=== PATIENT | female | born 1935 | race Caucasian/White ===

== ENCOUNTER 2017-07-30 13:35 | Outpatient (POV) | payer MEDICARE, MEDICAID, SELFPAY | END 2017-07-30 14:12 | disposition home or self-care (01) | PROVIDERS: Visit Provider Podiatrist | DX: L60.0 Ingrowing nail (principal); L60.1 Onycholysis; M25.572 Pain in left ankle and joints of left foot; M25.571 Pain in right ankle and joints of right foot | CPT/HCPCS: 99213; G0127 ==

== ENCOUNTER → 2018-07-12 13:32 | Outpatient (CLI) | payer MEDICARE, MEDICAID, SELFPAY ==
--- NOTE | 2018-07-12 13:36 | US_ITS ---
US Arterial Ankle Brachial Ind History: Claudication, leg pain ITS.REASON: skin changes ORDERING PHYSICIAN: Leonor Gandhi DPM PATIENT AGE: 82 years TECHNIQUE: Segmental pressures obtained of both right and left leg. These are compared to brachial blood pressure to yield index at each level sampled including summary JOSE. The data sheets from the procedure are available in PACS FINDINGS Rest study only performed today No prior studies available for comparison. Blood pressures reported are in millimeters mercury. RIGHT LEG JOSE = 1.0. RIGHT LEG TBI=.7 Brachial BP: 195 Thigh BP: 195 Calf BP: 194 Ankle PT: 202 Ankle DP : 169 Digit =133 LEFT LEG JOSE = 1.0 LEFT LEG TBI= .7 Brachial BPD: 188 Thigh BP: 190 Calf BP: 189 Ankle PT:203 Ankle DP: 206 Digit = 143 Pulses and waveforms: Normal IMPRESSION: The ABIs and TBI s as reported above are within normal limits. Waveforms and pulses are also unremarkable.
== END ==
PROVIDERS: PCP Internal Medicine Adolescent Medicine; Visit Provider Podiatrist
DX: R09.89 Other specified symptoms and signs involving the circulatory and respiratory systems (principal)
CPT/HCPCS: 93922

== ENCOUNTER 2019-05-28 12:52 | Inpatient (IN) ==
--- NOTE | 2019-05-28 13:08 | Emergency Department Note ---
ED Disposition Clinical Impression: Fall, Pubic ramus fracture, Left bundle branch block (LBBB) determined by electrocardiography, Elevated troponin Disposition: Admitted as Observation Condition on Discharge: Good Referrals: Meño Tian MD [Primary Care Provider] - Time of Disposition: :19 - Critical Care Critical Care Time: No Attestation: On , the high probability of a clinically significant, sudden or life threatening deterioration of the following system(s) required my full and direct attention, intervention and personal management. The time I documented below is in addition to time spent performing reported procedures but includes the following listed in this critical care notation. Medical Decision Making - Medical Records Medical records reviewed: Yes: I reviewed the patient's medical records. - Jakob Inquiry Pt receiving controlled substance: No Jakob was queried for this patient: No Vital Signs: 05/28/19 12:46 05/28/19 13:00 05/28/19 13:46 Temperature 98.3 F Temperature Source Oral Pulse Rate [Right Brachial] 74 79 64 Respiratory Rate 18 Blood Pressure [Right Arm] 92/43 L 125/50 L 97/64 L Blood Pressure Mean [Right Arm] 59 75 75 Blood Pressure Source [Right Arm] Automatic Cuff Automatic Cuff Blood Pressure Position [Right Arm] Sitting Sitting 02 Sat by Pulse Oximetry 95 98 96 Oxygen Delivery Method Room Air Nasal Cannula 05/28/19 14:16 05/28/19 15:00 05/28/19 15:30 Temperature Temperature Source Pulse Rate [Right Brachial] 69 69 68 Respiratory Rate Blood Pressure [Right Arm] 111/67 101/45 L 100/68 L Blood Pressure Mean [Right Arm] 81 63 78 Blood Pressure Source [Right Arm] Blood Pressure Position [Right Arm] 02 Sat by Pulse Oximetry 96 96 96 Oxygen Delivery Method 05/28/19 16:00 05/28/19 16:30 05/28/19 17:00 Temperature Temperature Source Pulse Rate [Right Brachial] 65 67 63 Respiratory Rate 17 Blood Pressure [Right Arm] 109/63 L 108/49 L 83/54 L Blood Pressure Mean [Right Arm] 78 68 63 Blood Pressure Source [Right Arm] Automatic Cuff Blood Pressure Position [Right Arm] Sitting 02 Sat by Pulse Oximetry 96 93 L 96 Oxygen Delivery Method Room Air 05/28/19 17:30 05/28/19 18:00 Temperature Temperature Source Pulse Rate [Right Brachial] 61 63 Respiratory Rate 13 14 Blood Pressure [Right Arm] 136/93 H 89/53 L Blood Pressure Mean [Right Arm] 107 65 Blood Pressure Source [Right Arm] Automatic Cuff Automatic Cuff Blood Pressure Position [Right Arm] Sitting Supine 02 Sat by Pulse Oximetry 96 96 Oxygen Delivery Method Room Air Room Air - Lab Data Lab results reviewed: Yes: I reviewed the patient's lab results. Lab Results 05/28/19 14:28: WBC 13.7 H, RBC 4.61, Hgb 14.8, Hct 46.6, MCV 101.1 H, MCH 32.1 H, MCHC 31.7 L, RDW 12.8, Plt Count 172, MPV 8.9, Neut % (Auto) 90.9 H, Lymph % (Auto) 5.3 L, [place] % (Auto) 3.3, Eos % (Auto) 0.1, Baso % (Auto) 0.4, Neut # (Auto) 12.5 H, Lymph # (Auto) 0.7, [place] # (Auto) 0.5, Eos # (Auto) 0.0, Baso # (Auto) 0.1, Total Counted 100, Neutrophils % (Manual) 88 H, Lymphocytes % (Manual) 7 L, Monocytes % (Manual) 5, Platelet Estimate Normal, Macrocytosis 1+ 05/28/19 14:28: PT 10.0, INR 0.96, APTT 28.3 05/28/19 14:28: Sodium 135 L, Potassium 3.5, Chloride 93 L, Carbon Dioxide 31, Anion Gap 14.5, BUN 35 H, Creatinine 1.72 H, Estimated Creat Clear 31, Estimated GFR 28 L, Est GFR ( Amer) 34 L, Glucose 139 H, Calcium 9.3 05/28/19 14:28: Troponin I 0.09 H 05/28/19 17:47: Troponin I 0.14 H Result diagrams: 05/28/19 14:28 05/28/19 14:28 Orders (Tests/Meds): ED MEDICATIONS Discontinued Medications Generic Name Dose Route Start Last Admin Trade Name Freq PRN Reason Stop Dose Admin Ketorolac Tromethamine 30 mg 05/28/19 13:08 05/28/19 13:54 Toradol 30mg/Ml Vial IM 05/28/19 13:09 30 mg ONCE ONE Administration Fall HPI - General Chief Complaint: Fall Stated Complaint: fall Time Seen by Provider: 05/28/19 13:05 Mode of Arrival: Ambulatory Source of Information: Patient - History of Present Illness HPI Narrative: fell yesterday, injured hip and knee. Can bear weight. States she fell because she was weak and her leg gave out. No chest pain. No symptoms since except anterior R groin pain - Related Data Home Medications Medication Instructions Recorded Confirmed diazepam 5 mg tablet 1 tab PO BID 30 Days #15 11/10/17 04/07/19 donepezil 5 mg tablet PO 30 Days #30 11/10/17 04/07/19 famotidine 20 mg tablet 1 tab PO DAILY 90 Days #90 11/10/17 04/07/19 fluticasone propionate 50 1 tab INTRANASAL DAILY 30 Days #16 11/10/17 04/07/19 mcg/actuation nasal spray,suspension furosemide 40 mg tablet 1 tab PO DAILY 30 Days #60 11/10/17 04/07/19 levothyroxine 50 mcg tablet 1 tab PO DAILY 90 Days #90 11/10/17 04/07/19 lisinopril 5 mg tablet 1 tab PO DAILY 90 Days #90 11/10/17 04/07/19 meloxicam 7.5 mg tablet 1 tab PO DAILY 20 Days #20 11/10/17 04/07/19 memantine ER 28 mg-donepezil 10 mg 1 tab PO DAILY 90 Days #90 11/10/17 04/07/19 capsule sprinkle,ext.release 24 hr metoprolol succinate ER 100 mg 1 tab PO BID 90 Days #90 11/10/17 04/07/19 tablet,extended release 24 hr montelukast 10 mg tablet 1 tab PO DAILY 90 Days #90 11/10/17 04/07/19 omeprazole 20 mg capsule,delayed 1 cap PO DAILY 30 Days #60 11/10/17 04/07/19 release potassium chloride ER 8 mEq 1 tab PO DAILY 90 Days #180 11/10/17 04/07/19 tablet,extended release prednisone 20 mg tablet PO 5 Days #10 11/10/17 04/07/19 Previous Rx's Medication Instructions Recorded diclofenac 1 % topical gel 4 g TOPICAL QID #30 g 04/06/18 Allergies Allergy/AdvReac Type Severity Reaction Status Date / Time codeine [CODEINE] Allergy Unknown Verified 04/07/19 11:33 Penicillins [PENICILLINS] Allergy Unknown Verified 04/07/19 11:33 [facility] History - Hepatitis A Screen Attestation statement:: This patient has been screened for Hepatitis A risk factors. I have reviewed the patient's past medical history: Yes Medical History: Reports:: Chronic Obstructive Pulmonary Disease (COPD), Gastroesophageal Reflux Disease(GERD), Hyperlipidemia, Hypertension Other Medical History: Reports: Arthritis, Hypothyroidism Laterality Cases: Other Surgeries: Yes: Hysterectomy-Total Amputation: No Fractures: No - Social History Smoking Status: Never smoker Alcohol Intake: never Alcohol Intake Frequency:: other Substance Use Type: denies use Occupational Status: retired Housing: apartment Household Members: none Family Hx:: Heart Attack, Hyperlipidemia, Hypertension ROS Obtained: Yes All systems reviewed & no additional complaints - Constitutional Constitutional: Denies fever(s) - Eyes Eyes: Denies change in vision - Cardiovascular Cardiovascular: Denies chest pain, Denies chest pain at rest - Respiratory Respiratory: No chest congestion, No cough, No dyspnea - Gastrointestinal Gastrointestingal: Denies: abdominal pain - Integumentary/Breasts Skin/Breast: Reports skin pain - Neurologic Neurologic: Denies sensory deficit, Denies syncope, Denies weakness - Hematologic/Lymphatic Henatologic/Lymphatic: Denies easy bleeding Physical Exam - General General appearance: alert, in no apparent distress - Head Head exam: atraumatic, normocephalic, normal inspection - Eye Eye exam: Present: normal appearance, PERRL, EOMI - ENT ENT exam: Present: normal exam, normal oropharynx, mucous membranes moist, TM's normal bilaterally, normal external ear exam - Neck Neck exam: Present: normal inspection, full ROM, trachea midline. Absent: meningismus, lymphadenopathy - Respiratory Respiratory exam: Present: normal lung sounds bilaterally. Absent: respiratory distress - Cardiovascular Cardiovascular exam: Present: regular rate, normal rhythm. Absent: JVD - Abdominal Exam Abdominal exam: Present: soft, normal bowel sounds. Absent: distention, tenderness, guarding - Extremities Exam Extremities exam: Present: full ROM, tenderness, other (pain with elevation greater trochanter). Absent: normal inspection, pedal edema, joint swelling, calf tenderness - Neurological Exam Neurological exam: Present: alert, oriented X3 - Psychiatric Psychiatric exam: Present: normal affect, normal mood - Skin Skin exam: Present: other (bruising R knee anteirorly)
[2019-05-28 14:55] LABS: Activated Partial Thrombo Time 28.3 seconds (23.6-34.0); INR 0.96 (0.9-1.1)
[2019-05-28 14:58] LABS: Basophils # 0.1 K/mm3 (0-0.2); Basophils % 0.4 % (0.1-2.0); Eosinophils % 0.1 % (0.1-12.0); Hematocrit 46.6 % (37.0-47.0); Hemoglobin 14.8 g/dL (12.2-16.2); Lymphocytes # 0.7 K/mm3 (0.7-4.5); Lymphocytes % 5.3 % (10-50); Mean Corpuscular HGB Conc 31.7 g/dL (31.8-35.4); Mean Corpuscular Volume 101.1 fl (81-99); Mean Platelet Volume 8.9 fl (7.4-10.4); Monocytes # 0.5 K/mm3 (0.1-1.0); Monocytes % 3.3 % (1.7-9.3); Neutrophils # 12.5 K/mm3 (1.8-7.8); Neutrophils % 90.9 % (37.0-80.0); Platelet Count 172 K/mm3 (142-424); Red Blood Count 4.61 M/mm3 (4.20-5.40); Red Cell Distribution Width 12.8 % (11.5-17.5); White Blood Count 13.7 K/mm3 (4.8-10.8)
[2019-05-28 14:59] LABS: Anion Gap 14.5 mEq/L (5-15); Calcium 9.3 mg/dL (8.5-10.1)
[2019-05-28 16:05] LABS: Lymphocytes % 7 % (10-50); Monocytes % 5 % (2-9); Neutrophils % 88 % (42-76); Total Cells Counted 100
[2019-05-28 16:06] LABS: Macrocytosis 1+
[2019-05-29 07:01] LABS: Basophils # 0.1 K/mm3 (0-0.2); Basophils % 0.7 % (0.1-2.0); Eosinophils # 0.3 K/mm3 (0.0-0.4); Eosinophils % 3.9 % (0.1-12.0); Hematocrit 34.6 % (37.0-47.0); Lymphocytes # 1.3 K/mm3 (0.7-4.5); Lymphocytes % 15.4 % (10-50); Mean Corpuscular HGB Conc 32.4 g/dL (31.8-35.4); Mean Corpuscular Volume 100.5 fl (81-99); Mean Platelet Volume 9.5 fl (7.4-10.4); Monocytes # 0.4 K/mm3 (0.1-1.0); Monocytes % 4.7 % (1.7-9.3); Neutrophils # 6.2 K/mm3 (1.8-7.8); Neutrophils % 75.3 % (37.0-80.0); Platelet Count 104 K/mm3 (142-424); Red Blood Count 3.44 M/mm3 (4.20-5.40); Red Cell Distribution Width 12.8 % (11.5-17.5); White Blood Count 8.2 K/mm3 (4.8-10.8)
[2019-05-29 07:08] LABS: Hemoglobin 11.2 g/dL (12.2-16.2)
[2019-05-29 07:12] LABS: Anion Gap 9.1 mEq/L (5-15)
--- NOTE | 2019-05-29 12:09 | Pharmacy Consult Notes ---
[facility] Pharmacy VTE Monitoring - Patient Demographics Admission date: 05/28/19 Report Date: 05/29/19 Time: 12:09 Allergies/Adverse Reactions: Patient Allergies codeine [CODEINE] Allergy (Unknown, Verified 04/07/19 11:33) Penicillins [PENICILLINS] Allergy (Unknown, Verified 04/07/19 11:33) Height: 1.63 m Weight: 58.627 kg Patient Problems: Current Active Problems Fall (Acute) Pubic ramus fracture (Acute) Left bundle branch block (LBBB) determined by electrocardiography (Acute) Elevated troponin (Acute) - VTE Risk Labs: VTE Related Lab Results Hgb 11.2 g/dL (12.2-16.2) L D 05/29/19 06:33 Hct 34.6 % (37.0-47.0) L 05/29/19 06:33 Plt Count 104 K/mm3 (142-424) L D 05/29/19 06:33 PT 10.0 seconds (9.4-11.8) 05/28/19 14:28 INR 0.96 (0.9-1.1) 05/28/19 14:28 APTT 28.3 seconds (23.6-34.0) 05/28/19 14:28 BUN 41 mg/dL (7-18) H 05/29/19 06:33 Creatinine 1.68 mg/dL (0.55-1.02) H 05/29/19 06:33 Estimated Creat Clear 23 mL/min (50-200) 05/29/19 06:33 Was VTE Risk Assessment Performed: Yes VTE Score: 4 VTE Risk Level: Low Risk - Prophylaxis VTE Prophylaxis Ordered?: Yes Types of VTE Prophylaxis: TEDS Knee High Location of Applied Device: Bilateral Lower Extremeties - VTE Diagnosis Confirmed Treatment or plan recommended: Continue Current Treatment
--- NOTE | 2019-05-29 12:21 | History & Physical Report ---
*Admission Date: 05/28/19 *Chief complaint: fall, ramus fracture, elevaed troponin *History of present illness: 83-year-old female with history of oxygen dependence who lives by herself. She reports falling at home yesterday with acute onset of some pelvic pain. She was brought to the ER by her family and was noted on work-up to have a pelvic ramus fracture. Additionally she was noted to have mild elevation in her troponin and an EKG with concern for left bundle branch block of unknown history or origin. Orthopedics was consulted for the pelvic fracture and as the fracture is stable, there is no surgical intervention at this time. However given the patient's troponin and a subsequent elevation on repeat check, with abnormal EKG, decision was made to admit patient for further monitoring on telemetry and observation. Since getting to the floor she has been able to walk with assistance with very minimal pain. Has otherwise remained stable and denies any chest pain, shortness of breath beyond baseline, nausea, vomiting, confusion. States she feels pretty good for her age, and has no additional complaints [facility] History I have reviewed the patient's past medical history: Yes Medical History: Reports:: Cancer, Chronic Obstructive Pulmonary Disease (COPD), Gastroesophageal Reflux Disease(GERD), Hyperlipidemia, Hypertension Denies:: Diabetes Mellitus Type 1, Diabetes Mellitus Type 2, MRSA *Have you ever received a pneumonia vaccine?: Yes *Have you received a flu vaccine this season?: Yes Other Medical History: Reports: Arthritis, Hypothyroidism Laterality Cases: Bilateral: Mastectomy, Other Other Surgeries: Yes: Hysterectomy-Total Amputation: No Fractures: No - *Social History Educational Level: Attended High School Smoking Status: Never smoker Alcohol Intake: never Alcohol Intake Frequency:: other Substance Use Type: denies use *Occupational Status:: retired Housing: apartment Household Members: none *Travel in the last 8 weeks: None Family Hx:: Heart Attack, Hyperlipidemia, Hypertension Review of Systems - Review of Systems Review of systems:: pertinent systems reviewed and negative unless documented be low - *Neurologic Denies sensory deficit, Denies fainting, Denies weakness Meds Home Medications Medication Instructions Recorded Confirmed Type famotidine 20 mg tablet 20 mg PO HS 90 Days #90 11/10/17 05/29/19 History furosemide 40 mg tablet 80 mg PO DAILY 30 Days #60 11/10/17 05/29/19 History levothyroxine 50 mcg tablet 50 mcg PO DAILY 90 Days #90 11/10/17 05/29/19 History lisinopril 5 mg tablet 5 mg PO DAILY 90 Days #90 11/10/17 05/29/19 History metoprolol succinate ER 100 mg 100 mg PO DAILY 90 Days #90 11/10/17 05/29/19 History tablet,extended release 24 hr montelukast 10 mg tablet 10 mg PO HS 90 Days #90 11/10/17 05/29/19 History omeprazole 20 mg capsule,delayed 20 mg PO BID 30 Days #60 11/10/17 05/29/19 History release potassium chloride ER 8 mEq 16 meq PO DAILY 90 Days #180 11/10/17 05/29/19 History tablet,extended release Aspirin [Aspirin 81mg EC Tab] 81 mg PO DAILY 05/28/19 05/28/19 History Cranberry 500 mg PO DAILY 05/28/19 05/29/19 History Docusate Sodium 250 mg PO DAILY 05/28/19 05/28/19 History L. Acidophilus/L.bulgaricus 1 each PO DAILY 05/28/19 05/28/19 History [Floranex Tablet] Loratadine [Claritin] 10 mg PO DAILY 05/28/19 05/28/19 History Memantine HCl/Donepezil HCl 1 each PO DAILY 05/28/19 05/28/19 History [Namzaric 28 mg-10 mg Capsule] Multivit-Min/Iron/Folic/Lutein 1 each PO DAILY 05/28/19 05/28/19 History [Centrum Silver Women Tablet] PARoxetine HCl [Paxil] 20 mg PO DAILY 05/28/19 05/28/19 History Sennosides [Senna] 8.6 mg PO DAILY 05/28/19 05/28/19 History hydroCHLOROthiazide [HCTZ 25mg 25 mg PO DAILY 05/28/19 05/28/19 History tab] Allergies Allergy/AdvReac Type Severity Reaction Status Date / Time codeine [CODEINE] Allergy Unknown Verified 04/07/19 11:33 Penicillins [PENICILLINS] Allergy Unknown Verified 04/07/19 11:33 Exam Vital signs and Labs for Last 24 Hours: Temp Pulse Resp BP Pulse Ox 98.2 F 60 16 112/58 L 96 05/29/19 08:00 05/29/19 08:00 05/29/19 08:00 05/29/19 08:00 05/29/19 08:00 Laboratory Results - last 24 hr 05/28/19 14:28: WBC 13.7 H, RBC 4.61, Hgb 14.8, Hct 46.6, MCV 101.1 H, MCH 32.1 H, MCHC 31.7 L, RDW 12.8, Plt Count 172, MPV 8.9, Neut % (Auto) 90.9 H, Lymph % (Auto) 5.3 L, [place] % (Auto) 3.3, Eos % (Auto) 0.1, Baso % (Auto) 0.4, Neut # (Auto) 12.5 H, Lymph # (Auto) 0.7, [place] # (Auto) 0.5, Eos # (Auto) 0.0, Baso # (Auto) 0.1, Total Counted 100, Neutrophils % (Manual) 88 H, Lymphocytes % (Manual) 7 L, Monocytes % (Manual) 5, Platelet Estimate Normal, Macrocytosis 1+ 05/28/19 14:28: PT 10.0, INR 0.96, APTT 28.3 05/28/19 14:28: Sodium 135 L, Potassium 3.5, Chloride 93 L, Carbon Dioxide 31, Anion Gap 14.5, BUN 35 H, Creatinine 1.72 H, Estimated Creat Clear 31, Estimated GFR 28 L, Est GFR ( Amer) 34 L, Glucose 139 H, Calcium 9.3 05/28/19 14:28: Troponin I 0.09 H 05/28/19 17:47: Troponin I 0.14 H 05/28/19 22:55: Troponin I 0.13 H 05/29/19 01:35: Troponin I 0.15 H 05/29/19 06:33: WBC 8.2 D, RBC 3.44 L D, Hgb 11.2 L D, Hct 34.6 L, MCV 100.5 H, MCH 32.6 H, MCHC 32.4, RDW 12.8, Plt Count 104 L D, MPV 9.5, Neut % (Auto) 75.3, Lymph % (Auto) 15.4, [place] % (Auto) 4.7, Eos % (Auto) 3.9, Baso % (Auto) 0.7, Neut # (Auto) 6.2, Lymph # (Auto) 1.3, [place] # (Auto) 0.4, Eos # (Auto) 0.3, Baso # (Auto) 0.1 05/29/19 06:33: Sodium 140, Potassium 3.1 L, Chloride 102, Carbon Dioxide 32, Anion Gap 9.1, BUN 41 H, Creatinine 1.68 H, Estimated Creat Clear 23, Estimated GFR 29 L, Est GFR ( Amer) 35 L, Glucose 103 D, Calcium 8.0 L D I & O for Last 24 hours: Intake & Output 05/26/19 05/27/19 05/28/19 05/29/19 23:59 23:59 23:59 23:59 Intake Total 804 / 804 Balance 804 / 804 Weight 56.869 kg 58.627 kg - Constitutional average body habitus Comments: Elderly, frail, chronically ill-appearing. - *Routine HEENT Exam Head: Present: normocephalic Eye: Present: EOMI, PERRL ENT: Present: mucous membranes moist Comments: Bruise on her chin - *Routine Neck Exam Present: supple. Absent: lymphadenopathy - *Routine Respiratory Exam Present: CTA bilaterally, prolonged expiratory phase. Absent: wheezes - *Routine Cardiovascular Exam Present: RRR - *Routine Abdominal Exam Present: soft, normoactive bowel sounds. Absent: tenderness - *Routine Extremities Exam Absent: cyanosis, clubbing, edema - *Routine Skin Exam Present: warm. Absent: rash - *Routine Neurological Exam Present: alert, oriented X3 Assessment and Plan (1) NSTEMI (non-ST elevated myocardial infarction) Current visit: Yes Status: Acute Category: Medical Code(s): I21.4 - Non-ST elevation (NSTEMI) myocardial infarction Suspect type II NSTEMI given the stress of her fall. Continuing to monitor on telemetry with no further events. Troponins stabilized after an initial bump. Patient is asymptomatic. Cardiology consulted, recommend echocardiogram in the morning and will evaluate the patient before possibly performing cardiac cath due to evidence of left bundle branch block of unknown significance or origin. (2) Fall Current visit: Yes Status: Acute Category: Medical Code(s): W19.XXXA - Unspecified fall, initial encounter (3) Left bundle branch block (LBBB) determined by electrocardiography Current visit: Yes Status: Acute Category: Medical Code(s): I44.7 - Left bundle-branch block, unspecified (4) Pubic ramus fracture Current visit: Yes Status: Acute Qualifiers: Encounter type: initial encounter Category: Medical Code(s): S32.599A - Other specified fracture of unspecified pubis, initial encounter for closed fracture Stable. No surgical intervention. Pain management as needed. - Assessment and plan all Dx Assessment and Plan for all problems:: 83-year-old female with fall at home and subsequent pelvic ramus fracture, noted to have elevated troponins concerning for an NSTEMI. Continue observation. Regular diet as tolerated. Cardiology to see patient in the morning with echoca rdiogram ordered. Further management pending their recommendations. Continues to require inpatient management at this time
--- NOTE | 2019-05-29 14:11 | Electrocardiograph Report ---
APPROVED REPORT Exam: Resting ECG HR:69 bpm ECG Measurements Heart Rate 69 AXES MO 144 P 87 QRSd 168 QRS 82 QT 514 T255 QTc 550 <Conclusion> Normal sinus rhythm Left bundle branch block Abnormal ECG Electronically signed by : Meño Tian, 05/29/2019 14:11:01
--- NOTE | 2019-05-29 21:24 | Electrocardiograph Report ---
APPROVED REPORT Exam: Resting ECG HR:64 bpm ECG Measurements Heart Rate 64 AXES [place] 156 P 47 QRSd 178 QRS 5 QT 514 T177 QTc 530 <Conclusion> Normal sinus rhythm Left bundle branch block Abnormal ECG Electronically signed by : Meño Tian, 05/29/2019 21:23:39
--- NOTE | 2019-05-30 07:50 | Progress Note ---
Internal Medicine - PN: Subj *Date: 05/30/19 *Time: 07:48 Interval history: Patient without complaints. Is oriented x2. Does recognize me after several minutes. Reports that she has had some chest pain when she walks around the room in the hospital yesterday, but denies hip pain or leg pain and has had no problems with using the walker in the hospital room. She does note that she "falls quite a bit" at her home. Exam Vital signs and Labs for Last 24 Hours: Temp Pulse Resp BP Pulse Ox 98.3 F 67 17 107/65 L 97 05/30/19 04:00 05/30/19 04:00 05/30/19 04:00 05/30/19 04:00 05/30/19 04:00 I & O for Last 24 hours: Intake & Output 05/27/19 05/28/19 05/29/19 05/30/19 11:59 11:59 11:59 11:59 Intake Total 804 / 804 3453 / 3453 Balance 804 / 804 3453 / 3453 Weight 129 lb 4 oz 130 lb 1 oz Narrative: Patient is pleasant. Fuzzy about the date. Oropharynx clear. Bruise underneath the left mandible from fall on admission. Heart rate regular. Lungs are clear in the anterior orr. No edema or clubbing in the extremities. Moves extremities well. No evidence of pain when she flexes her hips or moves her lower legs. Abdomen soft. ENT exam clear. Neurologic exam nonfocal. Assessment and Plan (1) NSTEMI (non-ST elevated myocardial infarction) Current visit: Yes Status: Acute Category: Medical Code(s): I21.4 - Non-ST elevation (NSTEMI) myocardial infarction (2) Fall Current visit: Yes Status: Acute Category: Medical Code(s): W19.XXXA - Unspecified fall, initial encounter (3) Left bundle branch block (LBBB) determined by electrocardiography Current visit: Yes Status: Acute Category: Medical Code(s): I44.7 - Left bundle-branch block, unspecified (4) Pubic ramus fracture Current visit: Yes Status: Acute Category: Medical Code(s): S32.599A - Other specified fracture of unspecified pubis, initial encounter for closed fracture - Assessment and plan all Dx Assessment and Plan for all problems:: Given patient's multiple comorbidities left heart cath is reasonable to assess cardiac etiology of falls and her elevated troponin/non-STEMI. Given her pubic ramus fracture and her frequent falls PT/OT evaluation. I think patient would deserve a stay in skilled rehabilitation bed. Patient is willing to do this for short-term, and I think this would be the best thing for patient safety issues. Care management evaluation to make referral for this once cardiac issues have stabilized.
--- NOTE | 2019-05-30 07:52 | Consult Report ---
History of Present Illness Consult date: 05/30/19 Requesting physician: Meño Tian Consult reason: chest pain Chief complaint: Chest pain Additional Medical History:: 1. HTN A. Echo, 05/2019, preserved ejection fraction with moderate aortic stenosis and mild aortic insufficiency along with mild to moderate mitral regurgitation 2. Hyperlipidemia 3. Fall with pelvic fracture, 05/2019 4. Elevated troponins, 05/2019, consistent with NSTEMI 5. 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 GERD History of present illness: 83-year-old female with history of oxygen dependence who lives by herself. She reports falling at home yesterday with acute onset of some pelvic pain. She was brought to the ER by her family and was noted on work-up to have a pelvic ramus fracture. Additionally she was noted to have mild elevation in her troponin and an EKG with concern for left bundle branch block of unknown history or origin. Orthopedics was consulted for the pelvic fracture and as the fracture is stable, there is no surgical intervention at this time. However given the patient's troponin and a subsequent elevation on repeat check, with abnormal EKG, decision was made to admit patient for further monitoring on telemetry and observation. Since getting to the floor she has been able to walk with assistance with very minimal pain. Has otherwise remained stable and denies any chest pain, shortness of breath beyond baseline, nausea, vomiting, confusion. States she feels pretty good for her age, and has no additional complaints The above per Dr Tian Cardiology consulted. Pt relates recent falls at home. She does relate some episodes of chest pain recently but is vague on the nature and character. She states that "it just comes on me" and she will lie down and it resolves. States she is concerned about her heart. She is unable to tell me if she had chest pain prior to each fall but does not think she tripped. She gets weak at times. Denies any tobacco use or history of diabetes. Elevated troponins in setting of questionable new IVCD/LBBB on EKG. No old EKG for comparison at this time. Preliminary echo shows preserved LVEF with moderate aortic stenosis and evidence of LVH. [facility] History Medical History: Reports:: Cancer, Chronic Obstructive Pulmonary Disease (COPD), Gastroesophageal Reflux Disease(GERD), Hyperlipidemia, Hypertension Denies:: Diabetes Mellitus Type 1, Diabetes Mellitus Type 2, MRSA *Have you ever received a pneumonia vaccine?: Yes *Have you received a flu vaccine this season?: Yes Other Medical History: Reports: Arthritis, Hypothyroidism Laterality Cases: Bilateral: Mastectomy, Other Other Surgeries: Yes: Hysterectomy-Total Amputation: No Fractures: No - *Social History Educational Level: Attended High School Smoking Status: Never smoker Alcohol Intake: never Alcohol Intake Frequency:: other Substance Use Type: denies use *Occupational Status:: retired Housing: apartment Household Members: none *Travel in the last 8 weeks: None Family Hx:: Heart Attack, Hyperlipidemia, Hypertension Meds Home Medications Medication Instructions Recorded Confirmed Type famotidine 20 mg tablet 20 mg PO HS 90 Days #90 11/10/17 05/29/19 History furosemide 40 mg tablet 80 mg PO DAILY 30 Days #60 11/10/17 05/29/19 History levothyroxine 50 mcg tablet 50 mcg PO DAILY 90 Days #90 11/10/17 05/29/19 History lisinopril 5 mg tablet 5 mg PO DAILY 90 Days #90 11/10/17 05/29/19 History metoprolol succinate ER 100 mg 100 mg PO DAILY 90 Days #90 11/10/17 05/29/19 History tablet,extended release 24 hr montelukast 10 mg tablet 10 mg PO HS 90 Days #90 11/10/17 05/29/19 History omeprazole 20 mg capsule,delayed 20 mg PO BID 30 Days #60 11/10/17 05/29/19 History release potassium chloride ER 8 mEq 16 meq PO DAILY 90 Days #180 11/10/17 05/29/19 History tablet,extended release Aspirin [Aspirin 81mg EC Tab] 81 mg PO DAILY 05/28/19 05/28/19 History Cranberry 500 mg PO DAILY 05/28/19 05/29/19 History Docusate Sodium 250 mg PO DAILY 05/28/19 05/28/19 History L. Acidophilus/L.bulgaricus 1 each PO DAILY 05/28/19 05/28/19 History [Floranex Tablet] Loratadine [Claritin] 10 mg PO DAILY 05/28/19 05/28/19 History Memantine HCl/Donepezil HCl 1 each PO DAILY 05/28/19 05/28/19 History [Namzaric 28 mg-10 mg Capsule] Multivit-Min/Iron/Folic/Lutein 1 each PO DAILY 05/28/19 05/28/19 History [Centrum Silver Women Tablet] PARoxetine HCl [Paxil] 20 mg PO DAILY 05/28/19 05/28/19 History Sennosides [Senna] 8.6 mg PO DAILY 05/28/19 05/28/19 History hydroCHLOROthiazide [HCTZ 25mg 25 mg PO DAILY 05/28/19 05/28/19 History tab] Allergies Allergy/AdvReac Type Severity Reaction Status Date / Time codeine [CODEINE] Allergy Unknown Verified 04/07/19 11:33 Penicillins [PENICILLINS] Allergy Unknown Verified 04/07/19 11:33 Review of Systems - *Cardiovascular Reports chest pain, Reports shortness of breath with activity - *Respiratory Reports shortness of breath with activity - *Gastrointestinal Denies abdominal pain, Denies nausea, Denies vomiting - *Genitourinary Denies blood in urine - *Musculoskeletal Reports joint pain, Reports back pain - *Neurologic Denies sensory deficit, Denies fainting, Denies weakness Exam Vital signs and Labs for Last 24 Hours: Temp Pulse Resp BP Pulse Ox 98.3 F 67 17 107/65 L 97 05/30/19 04:00 05/30/19 04:00 05/30/19 04:00 05/30/19 04:00 05/30/19 04:00 I & O for Last 24 hours: Intake & Output 05/27/19 05/28/19 05/29/19 05/30/19 11:59 11:59 11:59 11:59 Intake Total 804 / 804 3453 / 3453 Balance 804 / 804 3453 / 3453 Weight 129 lb 4 oz 130 lb 1 oz - *Routine HEENT Exam Head: Present: normocephalic Eye: Present: EOMI, PERRL ENT: Present: mucous membranes moist - *Routine Neck Exam Present: supple. Absent: JVD, carotid bruit - *Routine Respiratory Exam Present: CTA bilaterally. Absent: accessory muscle use, rales, rhonchi, wheezes - *Routine Cardiovascular Exam Present: RRR, murmur. Absent: gallop, rubs - *Routine Abdominal Exam Present: soft. Absent: tenderness, distended, guarding - *Routine Extremities Exam Absent: edema, calf tenderness - *Routine Neurological Exam Present: alert, moving all extremities Assessment and Plan (1) NSTEMI (non-ST elevated myocardial infarction) Current visit: Yes Status: Acute Category: Medical Code(s): I21.4 - Non-ST elevation (NSTEMI) myocardial infarction (2) Fall Current visit: Yes Status: Acute Category: Medical Code(s): W19.XXXA - Unspecified fall, initial encounter (3) Left bundle branch block (LBBB) determined by electrocardiography Current visit: Yes Status: Acute Category: Medical Code(s): I44.7 - Left bundle-branch block, unspecified (4) Pubic ramus fracture Current visit: Yes Status: Acute Qualifiers: Encounter type: initial encounter Category: Medical Code(s): S32.599A - Other specified fracture of unspecified pubis, initial encounter for closed fracture - Assessment and plan all Dx Assessment and Plan for all problems:: 1. Elevated troponins with abnormal EKG (question concern for new left bundle branch block) consistent with non-ST elevation MN. Discussed with patient and Dr. Tian and both agreed to proceed with left heart catheterization. Concerned that CAD may be a source for her recent falls. 2. Echocardiogram performed this a.m. with preliminary results showing preserved ejection fraction with moderate aortic stenosis. Await official results. 3. We will discuss results of echo and cardiac cath with Dr. Caicedo and further recommendations to follow pending. 4. With recent falls and (possibly new) LBBB, will need to consider that pacemaker is needed.
--- NOTE | 2019-05-30 19:48 | Discharge Summary ---
General - General Admission date:: 05/28/19 Discharge date: 05/30/19 HPI HPI: 83-year-old female with history of oxygen dependence who lives by herself. She reports falling at home yesterday with acute onset of some pelvic pain. She was brought to the ER by her family and was noted on work-up to have a pelvic ramus fracture. Additionally she was noted to have mild elevation in her troponin and an EKG with concern for left bundle branch block of unknown history or origin. Orthopedics was consulted for the pelvic fracture and as the fracture is stable, there is no surgical intervention at this time. However given the patient's troponin and a subsequent elevation on repeat check, with abnormal EKG, decision was made to admit patient for further monitoring on telemetry and observation. Since getting to the floor she has been able to walk with assistance with very minimal pain. Has otherwise remained stable and denies any chest pain, shortness of breath beyond baseline, nausea, vomiting, confusion. States she feels pretty good for her age, and has no additional complaints Hospital Course Hospital Course: ADmitted and pain control was good. Subjected to [facility] as planned - results below: ANGIOGRAPHIC RESULTS The left main artery Normal The left anterior descending artery Normal The circumflex artery Normal The right coronary artery Dominant normal The [place] ventriculogram reveals Hyperdynamic 75% The left ventricular end-diastolic pressure 20 mmHg Transaortic gradient nearly 100 mmHg IMPRESSION Normal coronary arteries Hyperdynamic ventricle Severe aortic stenosis PLAN 1. Patient has severe aortic stenosis in the setting of presumed syncope. I would recommend patient be transferred to [facility] this admission and be evaluated for TAVR procedure for the symptomatic aortic stenosis Patient transferred as noted. Objective Vital signs: Temp Pulse Resp BP Pulse Ox 98.1 F 68 18 102/56 L 96 05/30/19 18:50 05/30/19 18:50 05/30/19 18:50 05/30/19 18:50 05/30/19 18:50 Narrative: Constitutional average body habitus Comments: Elderly, frail, chronically ill-appearing. - *Routine HEENT Exam Head: Present: normocephalic Eye: Present: EOMI, PERRL ENT: Present: mucous membranes moist Comments: Bruise on her chin - *Routine Neck Exam Present: supple. Absent: lymphadenopathy - *Routine Respiratory Exam Present: CTA bilaterally, prolonged expiratory phase. Absent: wheezes - *Routine Cardiovascular Exam Present: RRR - *Routine Abdominal Exam Present: soft, normoactive bowel sounds. Absent: tenderness - *Routine Extremities Exam Absent: cyanosis, clubbing, edema - *Routine Skin Exam Present: warm. Absent: rash - *Routine Neurological Exam Present: alert, oriented X3 DS: Diagnosis - Discharge Diagnosis (1) NSTEMI (non-ST elevated myocardial infarction) Status: Acute (2) Fall Status: Acute (3) Left bundle branch block (LBBB) determined by electrocardiography Status: Acute (4) Pubic ramus fracture Status: Acute (5) Critical aortic valve stenosis Status: Acute Discharge Plan - Patient Discharge Instructions ACTIVITY: Continue current activity DIET: continue same diet Patient Instructions: Cardiac Troponin, Heart Attack in Women, Pelvic Fracture, Heart Attack, Arrhythmias, DI for Arrhythmias, How to Prevent Falls Forms: Transfer Record - Follow up Plan Follow up with: Magno Eaton MD [Staff Physician] - 06/14/19 2:30 pm (please arrive 30 minutes early for x-ray prior to appointment) Disposition: Xfer Short-Term Hosp Home Medications: Home Medications Medication Instructions Recorded Confirmed Type famotidine 20 mg tablet 20 mg PO HS 90 Days #90 11/10/17 05/29/19 History furosemide 40 mg tablet 80 mg PO DAILY 30 Days #60 11/10/17 05/29/19 History levothyroxine 50 mcg tablet 50 mcg PO DAILY 90 Days #90 11/10/17 05/29/19 History lisinopril 5 mg tablet 5 mg PO DAILY 90 Days #90 11/10/17 05/29/19 History metoprolol succinate ER 100 mg 100 mg PO DAILY 90 Days #90 11/10/17 05/29/19 History tablet,extended release 24 hr montelukast 10 mg tablet 10 mg PO HS 90 Days #90 11/10/17 05/29/19 History omeprazole 20 mg capsule,delayed 20 mg PO BID 30 Days #60 11/10/17 05/29/19 History release potassium chloride ER 8 mEq 16 meq PO DAILY 90 Days #180 11/10/17 05/29/19 History tablet,extended release Aspirin [Aspirin 81mg EC Tab] 81 mg PO DAILY 05/28/19 05/28/19 History Cranberry 500 mg PO DAILY 05/28/19 05/29/19 History Docusate Sodium 250 mg PO DAILY 05/28/19 05/28/19 History L. Acidophilus/L.bulgaricus 1 each PO DAILY 05/28/19 05/28/19 History [Floranex Tablet] Loratadine [Claritin] 10 mg PO DAILY 05/28/19 05/28/19 History Memantine HCl/Donepezil HCl 1 each PO DAILY 05/28/19 05/28/19 History [Namzaric 28 mg-10 mg Capsule] Multivit-Min/Iron/Folic/Lutein 1 each PO DAILY 05/28/19 05/28/19 History [Centrum Silver Women Tablet] PARoxetine HCl [Paxil] 20 mg PO DAILY 05/28/19 05/28/19 History Sennosides [Senna] 8.6 mg PO DAILY 05/28/19 05/28/19 History hydroCHLOROthiazide [HCTZ 25mg 25 mg PO DAILY 05/28/19 05/28/19 History tab] Prescriptions/Medication Reconciliation: No Action montelukast 10 mg tablet 10 mg PO HS 90 Days #90 levothyroxine 50 mcg tablet 50 mcg PO DAILY 90 Days #90 furosemide 40 mg tablet 80 mg PO DAILY 30 Days #60 famotidine 20 mg tablet 20 mg PO HS 90 Days #90 lisinopril 5 mg tablet 5 mg PO DAILY 90 Days #90 potassium chloride ER 8 mEq tablet,extended release 16 meq PO DAILY 90 Days #180 omeprazole 20 mg capsule,delayed release 20 mg PO BID 30 Days #60 metoprolol succinate ER 100 mg tablet,extended release 24 hr 100 mg PO DAILY 90 Days #90 hydroCHLOROthiazide [HCTZ 25mg tab] 25 mg PO DAILY Sennosides [Senna] 8.6 mg PO DAILY PARoxetine HCl [Paxil] 20 mg PO DAILY Multivit-Min/Iron/Folic/Lutein [Centrum Silver Women Tablet] 1 each PO DAILY Memantine HCl/Donepezil HCl [Namzaric 28 mg-10 mg Capsule] 1 each PO DAILY Docusate Sodium 250 mg PO DAILY Cranberry 500 mg PO DAILY L. Acidophilus/L.bulgaricus [Floranex Tablet] 1 each PO DAILY Aspirin [Aspirin 81mg EC Tab] 81 mg PO DAILY Loratadine [Claritin] 10 mg PO DAILY - Problem Reconciliation Problems Reviewed?: Yes
[2019-05-30 20:45] VITALS: BP 127/63
--- NOTE | 2019-06-06 13:32 | Cardiology Report ---
[facility] RADIOLOGICAL CONSULTATION Patient Name : NOE DOMINGUEZ X-RAY # : [id number] Physician: AMADEO NOONAN AGE: 83Y : 1935 00:00:00 ( F ) Exam : CA ECHO DOPPLER COMPLETE ACC # : [id number] Study Date : 05/30/2019 06:46:28 Patient Class : I FINAL REPORT CLINICAL DATA: FINDINGS: TRANSCRIBED REPORT EXAM: Comprehensive 2D, Doppler, and color-flow Echocardiogram Enterprise Manager: Karin Ramey RDCS Ht: 5 ft 4 in Wt: 129lbs BSA: 1.62 BP: 112/58 mmHg Indications: Abnormal ECG, COPD, Hyperlipidemia, Hypertension/HDD,FX pelvis,LBBB 2D Dimensions Aortic Root 4.20 cm F: 2.7 - 3.3 LVOT 1.64 cm (M/F) 1.5-2.5 M-Mode Dimensions RVDd 3.20 cm (0.9-2.6)LVDd 4.40 cm (3.5-5.7) LVDs 3.00 cm (3.5-5.7)IVSd 1.60 cm (0.6-1.1) PWd 1.60 cm (0.6-1.1)EF (Teich) 55.00% LV Diastology E/A Ratio 0.97LAT E' 8.26 (<10 cm/sec) E/LAT E' Ratio 4.90 (>14) Aortic Valve LVOT Max 408.00 (70-110 cm/s)LVOT VTI 102.34 cm Mitral Valve MV A Velocity 73.00 (40-130 cm/s) Electronically signed by : IMPRESSION: Dictated by at Transcribed by at
== END 2019-05-30 21:47 | disposition short-term general hospital (02) | DRG 535 ==
LOC: 2ND 12:52 → ER 12:52 → OBSVTOIN 19:50 → 2ND 19:50
PROVIDERS: ADMIT Internal Medicine Adolescent Medicine; ATTEND Internal Medicine Adolescent Medicine
DX: I10 Essential (primary) hypertension; I35.0 Nonrheumatic aortic (valve) stenosis; S32.591A Other specified fracture of right pubis, initial encounter for closed fracture; I21.4 Non-ST elevation (NSTEMI) myocardial infarction; I44.7 Left bundle-branch block, unspecified; Z99.81 Dependence on supplemental oxygen; Y92.019 Unspecified place in single-family (private) house as the place of occurrence of the external cause; W01.0XXA Fall on same level from slipping, tripping and stumbling without subsequent striking against object, initial encounter; J44.9 Chronic obstructive pulmonary disease, unspecified
CPT/HCPCS: 36415; 70450; 71010; 71045; 72125; 72170; 73562; 80048; 84484; 85007; 85025; 85610; 85730; 93005; 93306; 93458; 96372; 97165; 99152; 99284; C1725; C1769; J1644; Q9967

== ENCOUNTER → 2019-08-22 11:47 | Outpatient (CLI) | payer MEDICARE, MEDICAID, SELFPAY ==
[2019-08-22 13:35] LABS: Basophils # 0.1 K/mm3 (0-0.2); Basophils % 0.8 % (0.1-2.0); Eosinophils # 0.2 K/mm3 (0.0-0.4); Eosinophils % 2.4 % (0.1-12.0); Hematocrit 42.4 % (37.0-47.0); Hemoglobin 13.6 g/dL (12.2-16.2); Lymphocytes # 1.3 K/mm3 (0.7-4.5); Lymphocytes % 15.7 % (10-50); Mean Corpuscular HGB Conc 32.1 g/dL (31.8-35.4); Mean Corpuscular Hemoglobin 30.6 pg (27.0-31.2); Mean Corpuscular Volume 95.2 fl (81-99); Mean Platelet Volume 8.5 fl (7.4-10.4); Monocytes # 0.5 K/mm3 (0.1-1.0); Monocytes % 6.2 % (1.7-9.3); Neutrophils # 6.3 K/mm3 (1.8-7.8); Platelet Count 263 K/mm3 (142-424); Red Blood Count 4.46 M/mm3 (4.20-5.40); Red Cell Distribution Width 14.8 % (11.5-17.5); White Blood Count 8.4 K/mm3 (4.8-10.8)
[2019-08-22 13:48] LABS: Alanine Aminotransferase 13 U/L (12-78); Albumin Level 3.4 gm/dL (3.4-5.0); Albumin/Globulin Ratio 1.1 (1.1-1.8); Alkaline Phosphatase 104 U/L (46-116); Anion Gap 12.6 mEq/L (5-15); Aspartate Amino Transferase 17 U/L (15-37); Bilirubin,Total 0.3 mg/dL (0.2-1.0); Blood Urea Nitrogen 8 mg/dL (7-18); Calcium 9.2 mg/dL (8.5-10.1); Carbon Dioxide 28 mmol/L (21.0-32.0); Chloride 99 mmol/L (98-107); Creatinine,Serum 0.77 mg/dL (0.55-1.02); Estimated Glomerular Filt Rate 72 ml/min (>60); GFR (African American) 87 ML/MIN (>60); Globulin 3.1 gm/dl (1.3-3.2); Glucose 104 mg/dL (74-106); Potassium 3.6 mmoL/L (3.5-5.1); Sodium 136 mmol/L (136-145); Thyroid Stimulating Hormone 0.35 uIU/ml (0.358-3.740); Total Protein,Serum 6.5 gm/dL (6.4-8.2)
== END ==
PROVIDERS: Visit Provider Internal Medicine Adolescent Medicine
DX: E03.9 Hypothyroidism, unspecified (principal); I10 Essential (primary) hypertension
CPT/HCPCS: 80053; 84443; 85025

== ENCOUNTER → 2019-09-20 11:41 | Outpatient (CLI) | payer MEDICARE, MEDICAID, SELFPAY ==
[2019-09-20 13:35] LABS: Basophils # 0.1 K/mm3 (0-0.2); Basophils % 1.4 % (0.1-2.0); Eosinophils # 0.2 K/mm3 (0.0-0.4); Hematocrit 43.9 % (37.0-47.0); Hemoglobin 14.1 g/dL (12.2-16.2); Lymphocytes # 1.5 K/mm3 (0.7-4.5); Lymphocytes % 29.2 % (10-50); Mean Corpuscular HGB Conc 32.1 g/dL (31.8-35.4); Mean Corpuscular Hemoglobin 30.9 pg (27.0-31.2); Mean Corpuscular Volume 96.2 fl (81-99); Mean Platelet Volume 8.5 fl (7.4-10.4); Monocytes # 0.3 K/mm3 (0.1-1.0); Monocytes % 5.2 % (1.7-9.3); Neutrophils # 3.2 K/mm3 (1.8-7.8); Neutrophils % 61.1 % (37.0-80.0); Platelet Count 222 K/mm3 (142-424); Red Blood Count 4.56 M/mm3 (4.20-5.40); Red Cell Distribution Width 15.3 % (11.5-17.5); White Blood Count 5.2 K/mm3 (4.8-10.8)
[2019-09-20 14:39] LABS: Alanine Aminotransferase 13 U/L (9-52); Albumin Level 3.7 g/dL (3.4-5.0); Albumin/Globulin Ratio 1.2 (1.1-1.8); Alkaline Phosphatase 95 U/L (46-116); Anion Gap 15.7 mEq/L (5-15); Aspartate Amino Transferase 18 U/L (15-37); Bilirubin,Total 0.3 mg/dL (0.2-1.0); Blood Urea Nitrogen 10 mg/dL (7-18); Calcium 9.2 mg/dL (8.5-10.1); Carbon Dioxide 26 mmol/L (21.0-32.0); Chloride 106 mmol/L (98-107); Creatinine,Serum 1.03 mg/dL (0.55-1.02); Estimated Glomerular Filt Rate 51 ml/min (>60); GFR (African American) 62 ML/MIN (>60); Glucose 147 mg/dL (74-106); Potassium 3.7 mmoL/L (3.5-5.1); Sodium 144 mmol/L (137-145); Thyroid Stimulating Hormone 1.05 uIU/ml (0.358-3.740); Total Protein,Serum 6.7 g/dL (6.4-8.2)
== END ==
PROVIDERS: Visit Provider Internal Medicine Adolescent Medicine
DX: R53.83 Other fatigue (principal)
CPT/HCPCS: 80053; 84443; 85025

== ENCOUNTER → 2020-01-09 13:27 | Outpatient (CLI) | payer MEDICARE, MEDICAID, SELFPAY ==
[2020-01-09 15:06] LABS: Basophils # 0.1 K/mm3 (0-0.2); Basophils % 1.3 % (0.1-2.0); Eosinophils # 0.2 K/mm3 (0.0-0.4); Eosinophils % 2.8 % (0.1-12.0); Hematocrit 43.9 % (37.0-47.0); Hemoglobin 14.1 g/dL (12.2-16.2); Lymphocytes # 1.5 K/mm3 (0.7-4.5); Lymphocytes % 21.5 % (10-50); Mean Corpuscular HGB Conc 32.1 g/dL (31.8-35.4); Mean Corpuscular Hemoglobin 33.6 pg (27.0-31.2); Mean Corpuscular Volume 104.6 fl (81-99); Mean Platelet Volume 8.6 fl (7.4-10.4); Monocytes # 0.4 K/mm3 (0.1-1.0); Monocytes % 5.6 % (1.7-9.3); Neutrophils # 4.8 K/mm3 (1.8-7.8); Neutrophils % 68.7 % (37.0-80.0); Platelet Count 252 K/mm3 (142-424); Red Cell Distribution Width 13.7 % (11.5-17.5); White Blood Count 6.9 K/mm3 (4.8-10.8)
[2020-01-09 16:28] LABS: Chloride 97 mmol/L (98-107); Sodium 135 mmol/L (136-145)
[2020-01-09 16:29] LABS: Potassium 3.5 mmoL/L (3.5-5.1)
[2020-01-09 16:32] LABS: Anion Gap 13.5 mEq/L (5-15); Blood Urea Nitrogen 8 mg/dl (7-17); Calcium 9.1 mg/dl (8.4-10.2); Carbon Dioxide 28 mmol/L (22.0-30.0); Estimated Glomerular Filt Rate 80 ml/min (>60); GFR (African American) 96 ML/MIN (>60); Glucose 125 mg/dl (74-100)
[2020-01-09 18:20] LABS: Microscopic, Urine URINE MICROSCOPIC (MICROSCOPIC)
[2020-01-09 18:28] LABS: Appearance,Urine CLEAR (Clear); Bilirubin,Urine Negative (Negative); Blood, Urine Negative (Negative); Color,Urine YELLOW (Yellow); Glucose,Urine (UA) Negative (Negative); Ketones,Urine Negative (Negative); Leukocyte Esterase,Urine Negative (Negative); Nitrate,Urine Negative (Negative); Protein,Urine 1+ (Negative); Urobilinogen,Urine 0.2 EU/dl (0.2)
[2020-01-09 19:53] LABS: Bacteria,Urine Trace /lpf
== END ==
PROVIDERS: Visit Provider Internal Medicine Adolescent Medicine
DX: S32.110D Nondisplaced Zone I fracture of sacrum, subsequent encounter for fracture with routine healing (principal); I42.1 Obstructive hypertrophic cardiomyopathy; J44.0 Chronic obstructive pulmonary disease with (acute) lower respiratory infection; J96.11 Chronic respiratory failure with hypoxia; I35.0 Nonrheumatic aortic (valve) stenosis
CPT/HCPCS: 80048; 81001; 85025

== ENCOUNTER → 2020-04-13 09:52 | Outpatient (CLI) | payer MEDICARE, MEDICAID, SELFPAY ==
--- NOTE | 2020-04-13 09:58 | XR_ITS ---
PROCEDURE: XR CLAVICLE LT CLINICAL INDICATION: left clavicle fracture COMPARISON: No exams were available for comparison FINDINGS: There is an oblique fracture through the distal clavicle without significant angulation. The AC joint remains intact. The humeral head and and glenoid appear normal. There are no soft tissue calcifications. IMPRESSION: Acute to semi acute fracture lateral clavicle just proximal to the AC joint, no callus formation seen Dictated by: Dr. Dheeraj William MD 04/13/2020 10:42 Dr. Dheeraj William MD in [place] 04/13/2020 10:42
== END ==
PROVIDERS: PCP Internal Medicine Adolescent Medicine; Visit Provider Orthopaedic Surgery
DX: S42.002A Fracture of unspecified part of left clavicle, initial encounter for closed fracture (principal)
CPT/HCPCS: 73000

== ENCOUNTER → 2020-05-04 10:34 | Outpatient (CLI) | payer MEDICARE, MEDICAID, SELFPAY ==
--- NOTE | 2020-05-04 10:39 | XR_ITS ---
PROCEDURE: XR CLAVICLE LT CLINICAL INDICATION: lt clavicle Follow-up fracture COMPARISON: CR XR CLAVICLE LT from 04/13/2020 FINDINGS: Healing fracture involves the distal aspect of the clavicle with good alignment. There is mild superior displacement of the distal fracture fragment as before somewhat less compared to the previous exam. The AC joint appears intact. IMPRESSION: Healing distal clavicular fracture as described above Dictated by: Karson Magana MD 05/04/2020 16:16 Karson Magana MD in [place] 05/04/2020 16:16
== END ==
PROVIDERS: PCP Internal Medicine Adolescent Medicine; Visit Provider Orthopaedic Surgery
DX: M89.8X1 Other specified disorders of bone, shoulder (principal)
CPT/HCPCS: 73000

== ENCOUNTER → 2020-06-07 09:59 | Outpatient (CLI) | payer MEDICARE, MEDICAID, SELFPAY ==
--- NOTE | 2020-06-07 10:07 | XR_ITS ---
PROCEDURE: XR CLAVICLE LT CLINICAL INDICATION: LT clavicle FX F/U Follow-up fracture COMPARISON: CR XR CLAVICLE LT from 04/13/2020 CR XR CLAVICLE LT from 05/04/2020 FINDINGS: Nondisplaced comminuted distal clavicle fracture is once again noted. There is some developing callus formation however, the fracture line is still visible. Mild osteoarthritic changes are present at the AC joint. The joint spaces are well-preserved. No significant degenerative/arthritic changes. No erosive changes evident. Other findings:None. IMPRESSION: Healing distal clavicular fracture Dictated by: Karson Magana MD 06/07/2020 13:35 Karson Magana MD in [place] 06/07/2020 13:35
== END ==
PROVIDERS: PCP Internal Medicine Adolescent Medicine; Visit Provider Orthopaedic Surgery
DX: S42.009A Fracture of unspecified part of unspecified clavicle, initial encounter for closed fracture (principal)
CPT/HCPCS: 73000

== ENCOUNTER → 2020-07-09 09:41 | Outpatient (CLI) | payer MEDICARE, MEDICAID, SELFPAY ==
--- NOTE | 2020-07-09 09:47 | XR_ITS ---
PROCEDURE: XR CLAVICLE LT CLINICAL INDICATION: L distal clavicle fracture Follow-up fracture COMPARISON: CR XR CLAVICLE LT from 04/13/2020 CR XR CLAVICLE LT from 05/04/2020 CR XR CLAVICLE LT from 06/07/2020 FINDINGS: There is a nondisplaced distal clavicle fracture once again noted. Fracture line is still visible. There does appear to be some developing callus formation. Calcification is present along the humeral head consistent with calcific tendinitis. IMPRESSION: Healing nondisplaced distal clavicular fracture. Calcific tendinitis of the shoulder Dictated by: Karson Magana MD 07/09/2020 10:20 Karson Magana MD in [place] 07/09/2020 10:20
== END ==
PROVIDERS: PCP Internal Medicine Adolescent Medicine; Visit Provider Orthopaedic Surgery
DX: S42.009A Fracture of unspecified part of unspecified clavicle, initial encounter for closed fracture (principal)
CPT/HCPCS: 73000

== ENCOUNTER 2020-07-27 09:05 | Outpatient (CLI) | payer MEDICARE, MEDICAID, SELFPAY ==
[2020-07-27] VITALS (10 sets, daily range): BP systolic 144–187; BP diastolic 73–89; PULSE 59–68; RESP 14–18; TEMP 36.9–37.6; O2SAT 93–96
== END 2020-07-27 12:22 | disposition home or self-care (01) ==
LOC: INF 09:12
PROVIDERS: PCP Internal Medicine Adolescent Medicine; Referring Provider Internal Medicine Adolescent Medicine; Visit Provider Internal Medicine Adolescent Medicine
DX: U07.1 COVID-19 (principal)
CPT/HCPCS: 96365

== ENCOUNTER → 2020-08-27 13:06 | Outpatient (CLI) | payer MEDICARE, MEDICAID, SELFPAY ==
--- NOTE | 2020-08-27 13:12 | XR_ITS ---
PROCEDURE: XR CLAVICLE LT CLINICAL INDICATION: L distal clavicle fracture Follow-up fracture COMPARISON: CR XR CLAVICLE LT from 04/13/2020 CR XR CLAVICLE LT from 05/04/2020 CR XR CLAVICLE LT from 06/07/2020 CR XR CLAVICLE LT from 07/09/2020 FINDINGS: Healing nondisplaced fracture involves the distal aspect of the clavicle. Fracture line is somewhat less visible indicating further healing. IMPRESSION: Healing nondisplaced distal clavicular fracture Dictated by: Karson Magana MD 08/27/2020 14:46 Karson Magana MD in [place] 08/27/2020 14:46
== END ==
PROVIDERS: PCP Internal Medicine Adolescent Medicine; Visit Provider Orthopaedic Surgery
DX: S42.002A Fracture of unspecified part of left clavicle, initial encounter for closed fracture (principal)
CPT/HCPCS: 73000

== ENCOUNTER → 2020-12-11 09:42 | Outpatient (CLI) | payer MEDICARE, MEDICAID, SELFPAY ==
[2020-12-11 14:12] LABS: Chloride 103 mmol/L (98-107); Sodium 140 mmol/L (136-145)
[2020-12-11 14:13] LABS: Potassium 3.5 mmoL/L (3.5-5.1)
[2020-12-11 14:15] LABS: Alanine Aminotransferase 11 U/L (12-78); Albumin Level 3.8 g/dl (3.5-5.0); Albumin/Globulin Ratio 1.6 (1.1-1.8); Alkaline Phosphatase 65 U/L (38-126); Anion Gap 9.5 mEq/L (5-15); Aspartate Amino Transferase 30 U/L (14-36); Bilirubin,Total 0.4 mg/dl (0.2-1.3); Blood Urea Nitrogen 13 mg/dl (7-17); Carbon Dioxide 31 mmol/L (22.0-30.0); Estimated Glomerular Filt Rate 68 ml/min (>60); GFR (African American) 82 ML/MIN (>60); Globulin 2.4 g/dL (1.3-3.2); Total Protein,Serum 6.2 g/dl (6.3-8.2)
[2020-12-11 14:16] LABS: Glucose 81 mg/dl (74-100)
[2020-12-11 14:47] LABS: Thyroid Stimulating Hormone 1.76 uIU/mL (0.465-4.68)
== END ==
PROVIDERS: Visit Provider Nurse Practitioner Family
DX: E03.9 Hypothyroidism, unspecified (principal)
CPT/HCPCS: 36415; 80053; 84443

== ENCOUNTER → 2021-04-17 19:07 | Outpatient (CLI) | payer MEDICARE, MEDICAID, SELFPAY ==
[2021-04-17 19:14] LABS: Basophils # 0.1 K/mm3 (0-0.2); Basophils % 1.1 % (0.1-2.0); Eosinophils # 0.1 K/mm3 (0.0-0.4); Eosinophils % 1.8 % (0.1-12.0); Hematocrit 42.2 % (37.0-47.0); Hemoglobin 13.5 g/dL (12.2-16.2); Lymphocytes # 1.7 K/mm3 (0.7-4.5); Lymphocytes % 30.8 % (10-50); Mean Platelet Volume 11.7 fl (7.4-10.4); Monocytes # 0.5 K/mm3 (0.1-1.0); Monocytes % 8.6 % (1.7-9.3); Neutrophils # 3.3 K/mm3 (1.8-7.8); Neutrophils % 57.8 % (37.0-80.0); Platelet Count 196 K/mm3 (142-424); Red Cell Distribution Width 13.2 % (11.5-17.5); White Blood Count 5.7 K/mm3 (4.8-10.8)
[2021-04-17 19:16] LABS: Chloride 104 mmol/L (98-107); Potassium 4.4 mmoL/L (3.5-5.1); Sodium 138 mmol/L (136-145)
[2021-04-17 19:18] LABS: Alanine Aminotransferase 14 U/L (12-78); Aspartate Amino Transferase 86 U/L (14-36); Blood Urea Nitrogen 8 mg/dl (7-17); Estimated Glomerular Filt Rate 80 ml/min (>60); GFR (African American) 96 ML/MIN (>60)
[2021-04-17 19:19] LABS: Albumin Level 3.8 g/dl (3.5-5.0); Albumin/Globulin Ratio 1.4 (1.1-1.8); Alkaline Phosphatase 112 U/L (38-126); Anion Gap 13.4 mEq/L (5-15); Bilirubin,Total 0.9 mg/dl (0.2-1.3); Calcium 8.8 mg/dl (8.4-10.2); Carbon Dioxide 25 mmol/L (22.0-30.0); Globulin 2.8 g/dL (1.3-3.2); Glucose 63 mg/dl (74-100); Total Protein,Serum 6.6 g/dl (6.3-8.2)
[2021-04-17 20:56] LABS: Troponin I 0.03 ng/ml (0.00-0.034)
[2021-04-17 21:15] LABS: Thyroid Stimulating Hormone 1.09 uIU/mL (0.465-4.68)
== END ==
PROVIDERS: Visit Provider Nurse Practitioner Family
DX: I10 Essential (primary) hypertension (principal); I20.9 Angina pectoris, unspecified
CPT/HCPCS: 80053; 84443; 84484; 85025

== ENCOUNTER → 2021-06-18 06:58 | Outpatient (CLI) | payer MEDICARE, MEDICAID, SELFPAY ==
[2021-06-18 14:28] LABS: Alanine Aminotransferase 8 U/L (12-78); Albumin Level 3.6 g/dl (3.5-5.0); Albumin/Globulin Ratio 1.6 (1.1-1.8); Alkaline Phosphatase 55 U/L (38-126); Anion Gap 7.1 mEq/L (5-15); Aspartate Amino Transferase 23 U/L (14-36); Bilirubin,Total 0.4 mg/dl (0.2-1.3); Blood Urea Nitrogen 11 mg/dl (7-17); Calcium 8.9 mg/dl (8.4-10.2); Carbon Dioxide 31 mmol/L (22.0-30.0); Chloride 104 mmol/L (98-107); Estimated Glomerular Filt Rate 80 ml/min (>60); GFR (African American) 96 ML/MIN (>60); Globulin 2.3 g/dL (1.3-3.2); Glucose 84 mg/dl (74-100); Potassium 4.1 mmoL/L (3.5-5.1); Sodium 138 mmol/L (136-145); Total Protein,Serum 5.9 g/dl (6.3-8.2)
[2021-06-18 14:56] LABS: Thyroid Stimulating Hormone 0.61 uIU/mL (0.465-4.68)
== END ==
PROVIDERS: Visit Provider Nurse Practitioner Family
DX: E03.9 Hypothyroidism, unspecified (principal)
CPT/HCPCS: 36415; 80053; 84443

== ENCOUNTER → 2021-09-10 08:09 | Outpatient (CLI) | payer MEDICARE, MEDICAID, SELFPAY ==
[2021-09-10 14:01] LABS: Chloride 103 mmol/L (98-107)
[2021-09-10 14:02] LABS: Potassium 4.4 mmoL/L (3.5-5.1); Sodium 135 mmol/L (136-145)
[2021-09-10 14:04] LABS: Alanine Aminotransferase 9 U/L (12-78); Alkaline Phosphatase 51 U/L (38-126); Aspartate Amino Transferase 27 U/L (14-36); Basophils # 0.1 K/mm3 (0-0.2); Basophils % 1.6 % (0.1-2.0); Bilirubin,Total 0.4 mg/dl (0.2-1.3); Blood Urea Nitrogen 14 mg/dl (7-17); Eosinophils # 0.3 K/mm3 (0.0-0.4); Eosinophils % 5.3 % (0.1-12.0); Estimated Glomerular Filt Rate 68 ml/min (>60); GFR (African American) 82 ML/MIN (>60); Hematocrit 40.8 % (37.0-47.0); Hemoglobin 13.4 g/dL (12.2-16.2); Lymphocytes # 1.8 K/mm3 (0.7-4.5); Lymphocytes % 38.3 % (10-50); Mean Corpuscular HGB Conc 32.9 g/dL (31.8-35.4); Mean Corpuscular Hemoglobin 33.6 pg (27.0-31.2); Mean Corpuscular Volume 102.2 fl (81-99); Mean Platelet Volume 10.1 fl (7.4-10.4); Monocytes # 0.4 K/mm3 (0.1-1.0); Monocytes % 7.3 % (1.7-9.3); Neutrophils # 2.3 K/mm3 (1.8-7.8); Neutrophils % 47.4 % (37.0-80.0); Platelet Count 209 K/mm3 (142-424); Red Cell Distribution Width 13.1 % (11.5-17.5); White Blood Count 4.8 K/mm3 (4.8-10.8)
[2021-09-10 14:05] LABS: Albumin Level 3.6 g/dl (3.5-5.0); Albumin/Globulin Ratio 1.5 (1.1-1.8); Anion Gap 6.4 mEq/L (5-15); Calcium 8.8 mg/dl (8.4-10.2); Carbon Dioxide 30 mmol/L (22.0-30.0); Globulin 2.4 g/dL (1.3-3.2); Glucose 82 mg/dl (74-100)
[2021-09-10 14:34] LABS: Thyroid Stimulating Hormone 0.99 uIU/mL (0.465-4.68)
== END ==
PROVIDERS: Visit Provider Internal Medicine Adolescent Medicine
DX: E03.9 Hypothyroidism, unspecified (principal)
CPT/HCPCS: 36415; 80053; 84443; 85025

== ENCOUNTER → 2021-11-22 20:11 | Outpatient (CLI) | payer MEDICARE, MEDICAID, SELFPAY ==
[2021-11-22 20:49] LABS: Basophils # 0.1 K/mm3 (0-0.2); Basophils % 1.1 % (0.1-2.0); Eosinophils # 0.1 K/mm3 (0.0-0.4); Eosinophils % 1.5 % (0.1-12.0); Hematocrit 38.6 % (37.0-47.0); Hemoglobin 12.5 g/dL (12.2-16.2); Lymphocytes # 1.6 K/mm3 (0.7-4.5); Lymphocytes % 16.8 % (10-50); Mean Corpuscular HGB Conc 32.3 g/dL (31.8-35.4); Mean Corpuscular Hemoglobin 32.7 pg (27.0-31.2); Mean Corpuscular Volume 101.1 fl (81-99); Mean Platelet Volume 9.1 fl (7.4-10.4); Monocytes # 0.7 K/mm3 (0.1-1.0); Monocytes % 7.4 % (1.7-9.3); Neutrophils # 6.8 K/mm3 (1.8-7.8); Neutrophils % 73.2 % (37.0-80.0); Platelet Count 307 K/mm3 (142-424); Red Blood Count 3.82 M/mm3 (4.20-5.40); Red Cell Distribution Width 13.5 % (11.5-17.5); White Blood Count 9.2 K/mm3 (4.8-10.8)
== END ==
PROVIDERS: Visit Provider Internal Medicine Adolescent Medicine
DX: E03.9 Hypothyroidism, unspecified (principal)
CPT/HCPCS: 85025

== ENCOUNTER 2022-02-15 19:16 | Emergency (ER) | payer MEDICARE, MEDICAID, SELFPAY ==
[2022-02-15] VITALS (9 sets, daily range): BP systolic 158–229; BP diastolic 90–111; PULSE 57–68; RESP 12–19; TEMP 36.6–36.8; O2SAT 94–96; BMI 21.2
--- NOTE | 2022-02-15 19:13 | ECG_ITS ---
APPROVED REPORT Exam: Resting ECG HR:65 bpm ECG Measurements Heart Rate 65 AXES TX 167 P 58 QRSd 160 QRS 53 QT 474 T 195 QTc 486 Conclusion SINUS RHYTHM LEFT BUNDLE BRANCH BLOCK [120+ ms QRS DURATION, 80+ ms Q/S IN V1/V2, 85+ ms R IN I/aVL/V5/V6] ABNORMAL ECG UNCONFIRMED REPORT Electronically signed by : Meño Tian MD 02/17/2022 14:05:06
--- NOTE | 2022-02-15 19:13 | XR_ITS ---
PROCEDURE INFORMATION: Exam: XR Chest Exam date and time: 02/15/2022 7:17 PM Age: 86 years old Clinical indication: Sternal or substernal pain; Additional info: Chest pain TECHNIQUE: Imaging protocol: Radiologic exam of the chest. Views: 1 view. COMPARISON: CR XR CHEST AP 09/25/2019 4:20 PM FINDINGS: Lungs: Interstitial coarsening. No consolidation. Pleural spaces: No pneumothorax. Heart/Mediastinum: Cardiomediastinal contours are enlarged compared to prior examination. Bones/joints: No acute abnormality. IMPRESSION: Enlarged cardiomediastinal contours which is incompletely evaluated and would have wide differential including projectional artifact, progressive cardiomegaly, pericardial effusion, aortic aneurysm or dissection or mediastinal mass. Recommend CTA imaging for further evaluation.
[2022-02-15 19:37] LABS: Chloride 102 mmol/L (98-107); Sodium 140 mmol/L (136-145)
[2022-02-15 19:38] LABS: Potassium 4.3 mmoL/L (3.5-5.1)
[2022-02-15 19:40] LABS: Alanine Aminotransferase 16 U/L (12-78); Albumin Level 4.6 g/dl (3.5-5.0); Alkaline Phosphatase 79 U/L (38-126); Aspartate Amino Transferase 36 U/L (14-36); Bilirubin,Total 0.3 mg/dl (0.2-1.3); Blood Urea Nitrogen 17 mg/dl (7-17); Creatinine Clearance Estimated 34 mL/min (50-200); Estimated Glomerular Filt Rate 68 ml/min (>60); GFR (African American) 82 ML/MIN (>60)
[2022-02-15 19:41] LABS: Albumin/Globulin Ratio 1.3 (1.1-1.8); Anion Gap 9.3 mEq/L (5-15); Carbon Dioxide 33 mmol/L (22.0-30.0); Globulin 3.5 g/dL (1.3-3.2); Glucose 111 mg/dl (74-100); Total Protein,Serum 8.1 g/dl (6.3-8.2)
[2022-02-15 19:50] LABS: NT Pro Brain Natriuretic Pep. 5870 pg/mL (0-450)
[2022-02-15 19:53] LABS: Troponin I 0.03 ng/ml (0.00-0.034)
--- NOTE | 2022-02-15 19:54 | [facility].EDCP ---
ED Disposition Clinical Impression: Chest pain Qualifiers: Chest pain type: unspecified Qualified Code(s): R07.9 - Chest pain, unspecified Disposition: Home, Self-Care Condition on Discharge: Fair Instructions: DI for Atypical Chest Pain Additional Instructions: Follow-up with your primary care doctor in about 2 to 3 days if you do not feel better. Return to the emergency department immediately if you feel worse in any way. Continue taking all medications as prescribed. Referrals: Meño Tian MD [Primary Care Provider] - - Critical Care Critical Care Time: No Attestation: On 02/15/22, the high probability of a clinically significant, sudden or life threatening deterioration of the following system(s) required my full and direct attention, intervention and personal management. The time I documented below is in addition to time spent performing reported procedures but includes the following listed in this critical care notation. Medical Decision Making - Jakob Inquiry Pt receiving controlled substance: No Vital Signs: 02/15/22 19:27 02/15/22 19:30 02/15/22 19:43 Temperature 98 F Temperature Source Oral Pulse Rate 58 L 67 Pulse Rate [Apical] 61 Respiratory Rate 18 16 13 Blood Pressure 222/103 H 229/111 H Blood Pressure [Right Arm] 222/103 H Blood Pressure Mean [Right Arm] 142 Blood Pressure Source Blood Pressure Source [Right Arm] Automatic Cuff Blood Pressure Position [Right Arm] Sitting 02 Sat by Pulse Oximetry 95 94 L 94 L Oxygen Delivery Method Room Air Room Air Room Air 02/15/22 20:00 02/15/22 20:18 02/15/22 20:52 Temperature Temperature Source Pulse Rate 63 62 Pulse Rate [Apical] Respiratory Rate 17 12 Blood Pressure 210/108 H 198/96 H 228/105 H Blood Pressure [Right Arm] Blood Pressure Mean [Right Arm] Blood Pressure Source Manual Cuff/ Auscultation Blood Pressure Source [Right Arm] Blood Pressure Position [Right Arm] 02 Sat by Pulse Oximetry 94 L 94 L Oxygen Delivery Method Room Air Room Air - Lab Data Lab Results 02/15/22 19:24: WBC 5.8, RBC 4.47, Hgb 14.7, Hct 46.0, MCV 102.9 H, MCH 32.9 H, MCHC 32.0, RDW 14.5, Plt Count 219, MPV 9.8, Neut % (Auto) 56.3, Lymph % (Auto) 31.9, [place] % (Auto) 5.5, Eos % (Auto) 2.7, Baso % (Auto) 3.7 H, Neut # (Auto) 3.3, Lymph # (Auto) 1.9, [place] # (Auto) 0.3, Eos # (Auto) 0.2, Baso # (Auto) 0.2 02/15/22 19:24: Sodium 140, Potassium 4.3, Chloride 102, Carbon Dioxide 33 H, Anion Gap 9.3, BUN 17, Creatinine 0.80, Estimated Creat Clear 34, Estimated GFR 68, Est GFR ( Amer) 82, Glucose 111 H, Calcium 10.0, Total Bilirubin 0.3, AST 36, ALT 16, Alkaline Phosphatase 79, Troponin I 0.03, NT-Pro-B Natriuret Pep 5870 H, Total Protein 8.1 D, Albumin 4.6, Globulin 3.5 H, Albumin/Globulin Ratio 1.3 02/15/22 19:55: SARS-CoV-2 (PCR) Not detected, Influenza A Untype (PCR) Not detected, Influenza Type B (PCR) Not detected Result diagrams: 02/15/22 19:24 02/15/22 19:24 Orders (Tests/Meds): ED MEDICATIONS Generic Name Dose Route Start Last Admin Trade Name Freq PRN Reason Stop Dose Admin Isosorbide Dinitrate 10 mg 02/15/22 21:00 02/15/22 20:27 Isosorbide Dinitrate 10 Mg Tablet PO 03/17/22 20:59 Not Given BID ARMIDA Discontinued Medications Generic Name Dose Route Start Last Admin Trade Name Freq PRN Reason Stop Dose Admin Iopamidol 70 ml 02/15/22 20:52 02/15/22 20:54 Iopamidol-370 (76%);100ml Bottle IV 02/15/22 20:53 70 ml ONCE ONE Administration Metoprolol Tartrate 50 mg 02/15/22 20:16 02/15/22 20:21 Metoprolol Tartrate 50mg Tablet PO 02/15/22 20:17 50 mg ONCE ONE Administration Nitroglycerin 1 gm 02/15/22 19:34 02/15/22 19:35 Nitroglycerin 1 Gm Ointment TD 02/15/22 19:35 1 gm ONCE ONE Administration Sodium Chloride 40 ml 02/15/22 20:52 02/15/22 20:54 0.9 % Sodium Chloride 50 Ml Vial IV 02/15/22 20:53 40 ml ONCE ONE Administration Sodium Chlo
[2022-02-15 20:02] LABS: Coronavirus 19, PCR Not Detected (NotDetected); Influenza A, PCR Not Detected (NotDetected); Influenza B, PCR Not Detected (NotDetected)
--- NOTE | 2022-02-15 20:19 | CT_ITS ---
PROCEDURE INFORMATION: Exam: CTA Chest With Contrast Exam date and time: 02/15/2022 8:31 PM Age: 86 years old Clinical indication: Other: Abnormal cxr and chest pain; Sternal or substernal pain; Additional info: Chest pain with abnormal cxr TECHNIQUE: Imaging protocol: Computed tomographic angiography of the chest with contrast. 3D rendering (Not supervised by radiologist): MIP and/or 3D reconstructed images were created by the technologist. Radiation optimization: All CT scans at this facility use at least one of these dose optimization techniques: automated exposure control; mA and/or kV adjustment per patient size (includes targeted exams where dose is matched to clinical indication); or iterative reconstruction. Contrast material: ISOVUE 370; Contrast volume: 70 ml; Contrast route: INTRAVENOUS (IV); COMPARISON: CR XR CHEST PORTABLE 02/15/2022 7:17 PM FINDINGS: Pulmonary arteries: Enlarged main pulmonary artery measuring 3.6 cm. Aorta: Ascending thoracic aorta measures 3.8 cm. Calcified atherosclerosis. Lungs: Examination of the lungs is limited by motion. Streaky basal airspace opacities which are likely hypoventilatory. No lobar consolidation. Pleural spaces: No pneumothorax. No pleural effusion. Heart: Cardiomegaly. Left ventricular wall appears thickened with flattening of the intraventricular septum Coronary artery calcifications. Lymph nodes: Enlarged mediastinal lymph nodes measuring up to 1 cm. Bones/joints: Scoliosis. No acute fracture. Soft tissues: No significant swelling. IMPRESSION: 1. Cardiomegaly with enlarged main pulmonary artery compatible with pulmonary arterial hypertension. 2. Enlarged mediastinal lymph nodes measuring up to 1 cm. 3. Streaky basal airspace opacities which are likely hypoventilatory. Clinical correlation recommended.
--- NOTE | 2022-02-15 20:32 | PC.NURSE ---
pt to CT via wheelchair
[2022-02-15 20:33] LABS: Basophils # 0.2 K/mm3 (0-0.2); Basophils % 3.7 % (0.1-2.0); Eosinophils # 0.2 K/mm3 (0.0-0.4); Eosinophils % 2.7 % (0.1-12.0); Hemoglobin 14.7 g/dL (12.2-16.2); Lymphocytes # 1.9 K/mm3 (0.7-4.5); Lymphocytes % 31.9 % (10-50); Mean Corpuscular Hemoglobin 32.9 pg (27.0-31.2); Mean Corpuscular Volume 102.9 fl (81-99); Mean Platelet Volume 9.8 fl (7.4-10.4); Monocytes # 0.3 K/mm3 (0.1-1.0); Monocytes % 5.5 % (1.7-9.3); Neutrophils # 3.3 K/mm3 (1.8-7.8); Neutrophils % 56.3 % (37.0-80.0); Platelet Count 219 K/mm3 (142-424); Red Blood Count 4.47 M/mm3 (4.20-5.40); Red Cell Distribution Width 14.5 % (11.5-17.5); White Blood Count 5.8 K/mm3 (4.8-10.8)
--- NOTE | 2022-02-15 20:46 | PC.NURSE ---
Sarahi with CT called at 2039 stating that patients IV had infiltrated during her ct scan c ct contrast. notified. IV removed at 2040. Orders to apply ice pack to IV site. Orders completed. Pt does not complain of any pain or discomfort currently from site.
--- NOTE | 2022-02-15 21:19 | PC.NURSE ---
ER speaking with pt at this time
== END 2022-02-15 21:47 | disposition home or self-care (01) ==
PROVIDERS: Emergency Medicine; Emergency Provider Emergency Medicine; PCP Internal Medicine Adolescent Medicine
DX: R07.9 Chest pain, unspecified (principal); F03.90 Unspecified dementia, unspecified severity, without behavioral disturbance, psychotic disturbance, mood disturbance, and anxiety; I44.7 Left bundle-branch block, unspecified; J44.9 Chronic obstructive pulmonary disease, unspecified; K21.9 Gastro-esophageal reflux disease without esophagitis; Z85.3 Personal history of malignant neoplasm of breast; E78.5 Hyperlipidemia, unspecified; I10 Essential (primary) hypertension; E03.9 Hypothyroidism, unspecified
CPT/HCPCS: 71045; 71275; 80053; 83880; 84484; 85025; 93005; 99285; C9803; Q9967; U0003; U0005

== ENCOUNTER 2022-07-23 09:55 | Emergency (ER) | payer MEDICARE, MEDICAID, SELFPAY ==
[2022-07-23] VITALS (7 sets, daily range): BP systolic 137–164; BP diastolic 72–84; PULSE 60–67; RESP 14–16; TEMP 36.8; O2SAT 83–93; BMI 25.7
--- NOTE | 2022-07-23 10:22 | CT_ITS ---
FINAL REPORT CLINICAL HISTORY: fall COMPARISON: September 2019 FINDINGS: Axial CT images of the cervical spine were obtained without contrast. Sagittal and coronal reformatted images were also obtained. This study was performed with techniques to keep radiation doses as low as reasonably achievable (ALARA). Individualized dose reduction techniques using automated exposure control or adjustment of mA and/or kV according to the patient's size were employed. There is no evidence of fracture or dislocation. There is kyphosis centered at C4-C5. There is mild anterolisthesis of C3 on C4. There are moderate to severe degenerative changes. There is multilevel neural foraminal narrowing. There is mild central canal stenosis at C5-C6. No paraspinous soft tissue abnormality is seen. Limited images of the upper thorax are unremarkable. IMPRESSION: No fracture or acute bony abnormality identified. Reviewed, Interpreted and Dictated by Jerome Thomas III, MD Transcribed by José Miguel Georges Authenticated and [facility]
--- NOTE | 2022-07-23 10:22 | CT_ITS ---
FINAL REPORT CLINICAL HISTORY: cerebral hemorrhage suspected, fall COMPARISON: September 2019 FINDINGS: Axial images of the head were obtained without contrast. Coronal reformatted images were also obtained. This study was performed with techniques to keep radiation doses as low as reasonably achievable (ALARA). Individualized dose reduction techniques using automated exposure control or adjustment of mA and/or kV according to the patient's size were employed. There is generalized age-appropriate atrophy. Periventricular low-attenuation areas are seen consistent with moderate chronic ischemic changes. There is no evidence of intracranial hemorrhage or mass. There is no evidence of acute infarct. There is no evidence of shift of the midline structures. No skull abnormality is seen on the bone window images. IMPRESSION: Atrophy and moderate periventricular chronic ischemic changes. No acute intracranial abnormality identified. Reviewed, Interpreted and Dictated by Jerome Thomas III, MD Transcribed by José Miguel Georges Authenticated and [facility]
--- NOTE | 2022-07-23 10:22 | XR_ITS ---
FINAL REPORT CLINICAL HISTORY: fall COMPARISON: September 25, 2019 FINDINGS: RIGHT HIP Two views of the right hip including an AP pelvis were obtained. There are chronic right superior and inferior pubic rami fractures which are stable. There are mild degenerative changes of the right hip. There is no dislocation. The visualized bony structures are well aligned. No soft tissue abnormality is seen. IMPRESSION: No definite acute fracture. If the patient's symptoms are persistent or severe, consider CT or MRI for further evaluation. Reviewed, Interpreted and Dictated by Jerome Thomas III, MD Transcribed by Katie Lott Authenticated and . [facility]
--- NOTE | 2022-07-23 10:23 | XR_ITS ---
FINAL REPORT CLINICAL HISTORY: fall COMPARISON: February 15, 2022 FINDINGS: A single portable view of the chest was obtained. Cardiomegaly is noted. The mediastinum is within normal limits. No acute pulmonary abnormality is identified. There are multiple right posterior rib fractures which appear chronic and were present on the prior exam. IMPRESSION: No active cardiopulmonary disease. Reviewed, Interpreted and Dictated by Jerome Thomas III, MD Transcribed by Katie Lott Authenticated and [facility]
--- NOTE | 2022-07-23 11:31 | HMH.EDGENADL ---
Discharge Plan Disposition Patient Disposition: Home, Self-Care Condition: Fair Prescriptions Prescriptions: No Action isosorbide dinitrate 10 MG tablet 10 mg PO BID buspirone 5 MG tablet 5 mg PO BID sennosides 8.6 MG tablet 8.6 mg PO DAILY polyethylene glycol 3350 17 GM powder in packet 17 gm PO DAILY cetirizine 5 MG tablet 5 mg PO DAILY acetaminophen 500 MG tablet 500 mg PO Q4HP PRN (Reason: pain or fever) tamsulosin 0.4 MG capsule 0.4 mg PO DAILY levothyroxine 50 MCG tablet 50 mcg PO DAILY paroxetine HCl 20 MG tablet 20 mg PO DAILY metoprolol tartrate 50 MG tablet 50 mg PO BID cranberry 400 MG capsule 400 mg PO DAILY docusate sodium 100 MG capsule 100 mg PO DAILY montelukast 10 MG tablet 10 mg PO DAILY albuterol sulfate 6.7 GM HFA aerosol inhaler 6.7 gm IH Q4HP PRN (Reason: copd) lisinopril 40 MG tablet 40 mg PO DAILY mirtazapine 7.5 MG tablet 7.5 mg PO DAILY omeprazole 20 MG tablet,delayed release (DR/EC) 20 mg PO DAILY PNV b#95-ferrous fumarate-FA 1 EACH tablet 2 each PO Q4HP PRN (Reason: copd) fluticasone furoate-vilanterol 1 EACH blister with device 1 inh IH DAILY Clinical Impressions Clinical Impression: Fall Instructions Patient Instructions: How to Prevent Falls Discharge ED Provider: Jude Ba General Adult HPI General Chief complaint: Fall Stated complaint: frequent falls Time Seen by Provider: 07/23/22 10:05 Mode of Arrival: EMS Source of Information: Patient and EMS Limitations: dementia Description of Symptoms (Recalled from ER Triage Doc. by RN): c/o upset stomach after breathing tx this am. Per nursing staff pt fell this 4am and again around 0900, pt c/o of bilateral hip pain, lower back pain at that time. First fall was unwitnessed, 2nd fall was seen by the aide who states that her left foot came out from underneath her and she fell, pt did hit her head with no LOC. Pt is at baseline with dx of dementia at this time per shelter. History of Present Illness HPI narrative: Patient is an 86-year-old female with a past medical history of left bundle branch block, pelvic fracture, NSTEMI who presents with concern for ground-level fall. Nursing staff reports that patient was complaining about an upset stomach and then had 2 falls today. She says that legs seem to give out from underneath her when she fell. The first 1 was unwitnessed but the second 1 was when there is an aide at the side. She reportedly did hit her head but denies any loss consciousness. She is on anticoagulation but she does take aspirin. She does have a history of dementia and has been at baseline the entire time. Upon arrival here she is complaining of some pain over her right hip. Denies any chest or abdominal pain. She does note some pain in her midline spine but denies any numbness or tingling into her extremities. She says that the hip pain is worse with movement of her right leg. She was able to ambulate after the fall. Related Data Home Medications Medication Instructions Recorded Confirmed acetaminophen 500 mg tablet 500 mg PO Q4HP PRN pain or fever 02/15/22 02/15/22 albuterol sulfate 90 mcg/actuation 6.7 gm inhalation Q4HP PRN copd 02/15/22 02/15/22 aerosol inhaler buspirone 5 mg tablet 5 mg PO BID anxiety disorder 02/15/22 02/15/22 cetirizine 5 mg tablet 5 mg PO DAILY allergies 02/15/22 02/15/22 cranberry 400 mg capsule 400 mg PO DAILY Supplement 02/15/22 02/15/22 docusate sodium 100 mg capsule 100 mg PO DAILY constipation 02/15/22 02/15/22 fluticasone furoate 100 1 inh inhalation DAILY COPD 02/15/22 02/15/22 mcg-vilanterol 25 mcg/dose inhalation powder isosorbide dinitrate 10 mg tablet 10 mg PO BID htn 02/15/22 02/15/22 levothyroxine 50 mcg tablet 50 mcg PO DAILY hypothyroidism 02/15/22 02/15/22 lisinopril 40 mg tablet 40 mg PO DAILY htn 02/15/22 02/15/22 m
--- NOTE | 2022-07-23 12:44 | PC.NURSE ---
pt ambulated to ER door and back, tolerated well, family at states that pt is walking at her baseline. MD ramos
--- NOTE | 2022-07-23 13:41 | PC.NURSE ---
report called Rachel at [facility]
== END 2022-07-23 13:43 | disposition home or self-care (01) ==
PROVIDERS: Emergency Provider Student in an Organized Health Care Education/Training Program; PCP Internal Medicine Adolescent Medicine
DX: M25.552 Pain in left hip (principal); M25.551 Pain in right hip; M54.50 Low back pain, unspecified; R50.9 Fever, unspecified; I25.2 Old myocardial infarction; I44.7 Left bundle-branch block, unspecified; J44.9 Chronic obstructive pulmonary disease, unspecified; F03.90 Unspecified dementia, unspecified severity, without behavioral disturbance, psychotic disturbance, mood disturbance, and anxiety; Z79.01 Long term (current) use of anticoagulants; Z79.1 Long term (current) use of non-steroidal anti-inflammatories (NSAID); Z79.51 Long term (current) use of inhaled steroids; Z79.899 Other long term (current) drug therapy; Z88.0 Allergy status to penicillin; Z88.5 Allergy status to narcotic agent; Z88.2 Allergy status to sulfonamides; Z88.8 Allergy status to other drugs, medicaments and biological substances; W19.XXXA Unspecified fall, initial encounter
CPT/HCPCS: 70450; 71045; 72125; 73502; 99285

== ENCOUNTER 2023-04-02 14:30 | Emergency (ER) | payer MEDICARE, MEDICAID, SELFPAY ==
[2023-04-02 14:30] VITALS: BP 146/74; PULSE 63; RESP 18; TEMP 36.6; O2SAT 91; BMI 20.5
--- NOTE | 2023-04-02 14:41 | CT_ITS ---
FINAL REPORT TECHNIQUE: multiple axial CT images were performed from the foramen magnum to the vertex without enhancement. This study was performed with techniques to keep radiation doses as low as reasonably achievable (ALARA). Individualized dose reduction techniques using automated exposure control or adjustment of mA and/or kV according to the patient's size were employed. CLINICAL HISTORY: fall COMPARISON: 07/23/2022 FINDINGS: There is moderate age-appropriate atrophy. There is proportional ventriculomegaly. There is periventricular white matter change likely related to chronic microvascular ischemia. There is no evidence of hemorrhage. No masses are identified. No extra-axial fluid is seen. The sinuses are normal. IMPRESSION: Atrophy and chronic changes without acute process. Reviewed, Interpreted and Dictated by Chris Eid MD Transcribed by Eugenia Brooks Authenticated and [facility]
--- NOTE | 2023-04-02 14:41 | CT_ITS ---
FINAL REPORT TECHNIQUE: Axial images were obtained of the cervical spine by computed tomography. Coronal and sagittal reconstruction process performed. This study was performed with techniques to keep radiation doses as low as reasonably achievable (ALARA). Individualized dose reduction techniques using automated exposure control or adjustment of mA and/or kV according to the patient''s size were employed. CLINICAL HISTORY: fall COMPARISON: 07/23/2022 FINDINGS: No fracture is identified. There is advanced disc space narrowing from C4-5 through C6-7. There is posterior osteophyte formation at multiple levels. There is bilateral neural foraminal narrowing, most evident on the right at C4-5 and C5-6 and on the left at C5-6 and C6-7. IMPRESSION: Multilevel degenerative change without acute fracture. Reviewed, Interpreted and Dictated by Chris Eid MD Transcribed by Eugenia Brooks Authenticated and [facility]
--- NOTE | 2023-04-02 14:41 | XR_ITS ---
FINAL REPORT CLINICAL HISTORY: fall, pain, L wrist deformity FINDINGS: Left forearm Two views were obtained. There is a transverse fracture through the distal radial metaphysis with dorsal angulation and displacement. The radiocarpal joint is intact. IMPRESSION: Fracture as above. Reviewed, Interpreted and Dictated by Chris Eid MD Transcribed by Eugenia Brooks Authenticated and [facility]
--- NOTE | 2023-04-02 14:41 | XR_ITS ---
FINAL REPORT CLINICAL HISTORY: fall, pain, L wrist deformity FINDINGS: Left hand Three views were obtained. There is a displaced, comminuted fracture of the distal radial metaphysis. There is moderate narrowing of the DIP and PIP joints consistent with osteoarthritis. The bones are osteopenic. IMPRESSION: Displaced comminuted fracture of the distal radial metaphysis. Reviewed, Interpreted and Dictated by Chris Eid MD Transcribed by Eugenia Brooks Authenticated and [facility]
--- NOTE | 2023-04-02 14:41 | XR_ITS ---
FINAL REPORT CLINICAL HISTORY: fall, pain, L wrist deformity FINDINGS: Left wrist Three views were obtained. There is a transverse fracture through the distal radial metaphysis with dorsal angulation and displacement. There is prominent soft tissue swelling over the dorsum of the wrist. IMPRESSION: Fracture as above. Reviewed, Interpreted and Dictated by Chris Eid MD Transcribed by Eugenia Brooks Authenticated and [facility]
--- NOTE | 2023-04-02 14:41 | XR_ITS ---
FINAL REPORT CLINICAL HISTORY: fall, pain, L wrist deformity COMPARISON: 07/23/2022 FINDINGS: SINGLE-VIEW CHEST There is mild cardiomegaly. There is an unfolded aorta. The mediastinum is normal. Chronic changes are seen in both lungs. There are old healed fracture deformities of the right 5th, 6th, and 7th ribs. There is no pneumothorax. IMPRESSION: No acute cardiopulmonary process. Reviewed, Interpreted and Dictated by Chris Eid MD Transcribed by Eugenia Brooks Authenticated and [facility]
--- NOTE | 2023-04-02 14:41 | XR_ITS ---
FINAL REPORT CLINICAL HISTORY: fall, pain, L wrist deformity COMPARISON: 07/23/2022 FINDINGS: Pelvis A single view was obtained. There is no acute fracture or dislocation. There are old healed fracture deformities of the right superior and inferior pubic rami. There is mild right hip joint space narrowing. No soft tissue abnormality is identified. IMPRESSION: No acute process. Reviewed, Interpreted and Dictated by Chris Eid MD Transcribed by Eugenia Brooks Authenticated and [facility]
--- NOTE | 2023-04-02 14:41 | XR_ITS ---
FINAL REPORT CLINICAL HISTORY: fall, pain, L wrist deformity FINDINGS: Left elbow Two views were obtained. There is no acute fracture or dislocation. The radial head appears intact. No joint effusion is identified. No soft tissue abnormality is identified. IMPRESSION: No acute process. Reviewed, Interpreted and Dictated by Chris Eid MD Transcribed by Eugenia Brooks Authenticated and [facility]
--- NOTE | 2023-04-02 14:44 | XR_ITS ---
FINAL REPORT CLINICAL HISTORY: fall, pain FINDINGS: Left humerus Two views were obtained. There is no acute fracture or dislocation. The bones are osteopenic. No soft tissue abnormality is identified. IMPRESSION: No acute process. Reviewed, Interpreted and Dictated by Chris Eid MD Transcribed by Eugenia Brooks Authenticated and . [facility]
--- NOTE | 2023-04-02 15:01 | HMH.EDGENADL ---
Discharge Plan Disposition Patient Disposition: Xfer SNF Condition: Good Prescriptions Prescriptions: No Action isosorbide dinitrate 10 MG tablet 10 mg PO BID buspirone 5 MG tablet 5 mg PO BID sennosides 8.6 MG tablet 8.6 mg PO DAILY polyethylene glycol 3350 17 GM powder in packet 17 gm PO DAILY cetirizine 5 MG tablet 5 mg PO DAILY acetaminophen 500 MG tablet 500 mg PO Q4HP PRN (Reason: pain or fever) tamsulosin 0.4 MG capsule 0.4 mg PO DAILY levothyroxine 50 MCG tablet 50 mcg PO DAILY paroxetine HCl 20 MG tablet 20 mg PO DAILY metoprolol tartrate 50 MG tablet 50 mg PO BID cranberry 400 MG capsule 400 mg PO DAILY docusate sodium 100 MG capsule 100 mg PO DAILY montelukast 10 MG tablet 10 mg PO DAILY albuterol sulfate 6.7 GM HFA aerosol inhaler 6.7 gm IH Q4HP PRN (Reason: copd) lisinopril 40 MG tablet 40 mg PO DAILY mirtazapine 7.5 MG tablet 7.5 mg PO DAILY omeprazole 20 MG tablet,delayed release (DR/EC) 20 mg PO DAILY PNV b#95-ferrous fumarate-FA 1 EACH tablet 2 each PO Q4HP PRN (Reason: copd) fluticasone furoate-vilanterol 1 EACH blister with device 1 inh IH DAILY Referrals Follow up/Referrals: Kenneth Cruz JR, MD [Physician] - See instructions ProviderErica MD [Referring] - See instructions Activity Restrictions/Add. Instructions Additional Instructions/Restrictions: You were evaluated in the emergency department today. Please follow-up with your primary care provider over the next 3 days for reassessment. You were found to have a fracture of your left distal radius. Please keep your splint on. Keep it clean and dry. Administer Tylenol and Motrin at home as needed for pain. Elevate the area and apply ice to reduce swelling. Please call orthopedics to schedule an appointment. We are providing you the information to schedule with Dr. Cruz. Return to the emergency department for new or worsening symptoms, such as increasing pain, new numbness or tingling, or other concerns. Clinical Impressions Clinical Impression: Closed fracture of distal end of left radius Qualifiers: Encounter type: initial encounter Fracture morphology: unspecified fracture morphology Qualified Code(s): S52.502A - Unspecified fracture of the lower end of left radius, initial encounter for closed fracture Instructions Patient Instructions: DI for Wrist Fracture, How to Take Care of Your Splint Discharge ED Provider: Macarena Nam General Adult HPI <Macarena Nam DO - Last Filed: 04/02/23 16:16> General Chief complaint: Fall Stated complaint: Fall Time Seen by Provider: 04/02/23 14:32 Mode of Arrival: EMS Source of Information: Patient and EMS Limitations: Altered Mental Status Description of Symptoms (Recalled from ER Triage Doc. by RN): Pt sent from [facility] for an unwitness fall resulting in an obvious deformity to the left wrist. Pt has dementia and gives limited details but says she tripped and fell forward. Pt is unsure if she hit her head. No obvious injuries other than left wrist and skin tear to left ring finger. History of Present Illness HPI narrative: This patient is an 87-year-old female with a history of dementia presented to the emergency department for evaluation with concern for a left wrist deformity after a mechanical ground-level fall. Patient had a trip and fall forward. She is unsure if she hit her head or not. No loss of consciousness noted by bystanders/EMS. She complains of pain to the left wrist. She had no obvious deformity to the left wrist, and a removable splint was placed by nursing facility. She received 25 micrograms of fentanyl in route with EMS for pain, which controlled her symptoms. She denies any pain elsewhere or other concerns. She reports that she was well prior to the fall. History of specific details is limited given the patient's dementia. Carlota
[2023-04-02 15:30] VITALS: BP 148/73; PULSE 60; O2SAT 94
--- NOTE | 2023-04-02 15:31 | XR_ITS ---
FINAL REPORT CLINICAL HISTORY: postreduction FINDINGS: Left wrist Two views were obtained. The angulation has been reduced but there is persistent half shaft width posterior displacement of the distal fracture fragment. There has been application of an overlying cast. IMPRESSION: Post reduction as detailed above. Reviewed, Interpreted and Dictated by Chris Eid MD Transcribed by Eugenia Brooks Authenticated and [facility]
[2023-04-02 16:00] VITALS: BP 143/72; PULSE 58; O2SAT 95
[2023-04-02 16:31] VITALS: BP 116/64; PULSE 56; O2SAT 94
[2023-04-02 17:00] VITALS: BP 123/71; PULSE 55; O2SAT 95
--- NOTE | 2023-04-02 17:02 | PC.NURSE ---
Called [facility] to let them know pt was ready to go back to [facility]
--- NOTE | 2023-04-02 17:07 | PC.NURSE ---
helped stand pt up and walked in room with Sherley help, pt ambulated great
[2023-04-02 17:55] VITALS: BP 128/79; PULSE 80; RESP 19; TEMP 36.8; O2SAT 98
== END 2023-04-02 17:56 ==
PROVIDERS: Emergency Provider Emergency Medicine; PCP Internal Medicine Adolescent Medicine
DX: S52.502A Unspecified fracture of the lower end of left radius, initial encounter for closed fracture (principal); F03.90 Unspecified dementia, unspecified severity, without behavioral disturbance, psychotic disturbance, mood disturbance, and anxiety; W01.0XXA Fall on same level from slipping, tripping and stumbling without subsequent striking against object, initial encounter
CPT/HCPCS: 70450; 71045; 72125; 72170; 73060; 73070; 73090; 73100; 73110; 73130; 96374; 96375; 99285; J0131

== ENCOUNTER → 2023-05-07 14:13 | Outpatient (CLI) | payer MEDICARE, SELFPAY ==
--- NOTE | 2023-05-07 14:21 | XR_ITS ---
FINAL REPORT CLINICAL HISTORY: left wrist fx COMPARISON: 04/02/2023 FINDINGS: Four views of the right wrist were obtained. Plaster cast has been removed. There is no change in alignment in the distal radial fracture with dorsal displacement of the distal fragment. There has been some development of callus formation. There continues to be soft tissue edema. IMPRESSION: No significant change of the distal radial fracture with continued soft tissue edema. Reviewed, Interpreted and Dictated by Alisson Perez MD Transcribed by Eugenia Brooks Authenticated and . [facility]
== END ==
PROVIDERS: PCP Internal Medicine Adolescent Medicine; Visit Provider Orthopaedic Surgery
DX: Y99.9 Unspecified external cause status; S52.502D Unspecified fracture of the lower end of left radius, subsequent encounter for closed fracture with routine healing
CPT/HCPCS: 73110

== ENCOUNTER 2023-05-07 15:10 | Outpatient (RCR) | payer MEDICARE, MEDICAID, SELFPAY | END 2023-05-07 16:45 | disposition home or self-care (01) | LOC: OT 15:10 | PROVIDERS: Visit Provider Orthopaedic Surgery | DX: S52.502A Unspecified fracture of the lower end of left radius, initial encounter for closed fracture (principal) ==

== ENCOUNTER → 2023-06-04 13:29 | Outpatient (CLI) | payer MEDICARE, MEDICAID, SELFPAY ==
--- NOTE | 2023-06-04 13:36 | XR_ITS ---
FINAL REPORT CLINICAL HISTORY: lt wrist pain COMPARISON: 05/07/2023 FINDINGS: Left wrist Three views were obtained. Again identified are fractures of the distal radius and ulnar styloid process. There is increased bone formation at the distal radius fracture site. The bony alignment is stable. There are moderate degenerative changes. The bones are osteopenic. IMPRESSION: Fractures as above. Reviewed, Interpreted and Dictated by Jerome Thomas III, MD Transcribed by Eugenia Brooks Authenticated and [facility]
== END ==
PROVIDERS: PCP Internal Medicine Adolescent Medicine; Visit Provider Orthopaedic Surgery
DX: S52.502A Unspecified fracture of the lower end of left radius, initial encounter for closed fracture (principal)
CPT/HCPCS: 73110

== ENCOUNTER 2024-03-12 02:48 | Emergency (ER) | payer MEDICARE, MEDICAID, SELFPAY ==
--- NOTE | 2024-03-12 02:30 | PC.NURSE ---
Report from Laura at [facility] for patient who fell while going to the restroom after she tripped on her socks. Patient has Alzheimer's, but is at her baseline according to Laura. Patient c/o left side pain, right foot pain, and a bump on the back of her head. Patient does not take blood thinners.
[2024-03-12 02:48] VITALS: BP 156/77; PULSE 61; RESP 20; TEMP 36.5; O2SAT 92; BMI 24.7
--- NOTE | 2024-03-12 02:51 | CT_ITS ---
PROCEDURE INFORMATION: Exam: CT Cervical Spine Without Contrast Exam date and time: 03/12/2024 3:11 AM Age: 88 years old Clinical indication: Injury or trauma; Fall; Other: Pain; Additional info: Trauma, critical injury suspected TECHNIQUE: Imaging protocol: Computed tomography of the cervical spine without contrast. Radiation optimization: All CT scans at this facility use at least one of these dose optimization techniques: automated exposure control; mA and/or kV adjustment per patient size (includes targeted exams where dose is matched to clinical indication); or iterative reconstruction. COMPARISON: CT CERVICAL SPINE WO CON 03/12/2024 3:11 AM FINDINGS: Bones/joints: Diffuse cervical spondylosis is noted. Hypertrophic changes of the facet present bilaterally. Discs/Spinal canal/Neural foramina: Narrowing of multiple intervertebral disc spaces are seen. Moderate neural foraminal narrowing is also noted. Lungs: Lung apices are normal. Vasculature: No obvious traumatic injury is seen. Carotid atherosclerosis is present. Soft tissues: Unremarkable. IMPRESSION: 1. No evidence of acute traumatic injury. 2. Diffuse cervical spondylosis. 3. Carotid atherosclerosis is present.
--- NOTE | 2024-03-12 02:51 | CT_ITS ---
PROCEDURE INFORMATION: Exam: CT Head Without Contrast Exam date and time: 03/12/2024 3:08 AM Age: 88 years old Clinical indication: Injury or trauma; Fall; Other: Pain; Additional info: Trauma, critical injury suspected TECHNIQUE: Imaging protocol: Computed tomography of the head without contrast. Radiation optimization: All CT scans at this facility use at least one of these dose optimization techniques: automated exposure control; mA and/or kV adjustment per patient size (includes targeted exams where dose is matched to clinical indication); or iterative reconstruction. COMPARISON: CT HEAD/BRAIN WO CON 04/02/2023 3:04 PM FINDINGS: Brain: There is diffuse prominence of the cerebral sulci, cisterns, and ventricles consistent with atrophy. No intra or extra-axial fluid collections are noted. No mass or mass effect is seen. Periventricular white matter hypoattenuation is seen consistent with chronic small vessel disease. Cerebral ventricles: No ventriculomegaly. Paranasal sinuses: Visualized sinuses are unremarkable. No fluid levels. Mastoid air cells: Visualized mastoid air cells are well aerated. Bones: Unremarkable. No acute fracture. Soft tissues: Unremarkable. IMPRESSION: No acute process noted.
--- NOTE | 2024-03-12 02:51 | XR_ITS ---
PROCEDURE INFORMATION: Exam: XR Right Ankle Exam date and time: 03/12/2024 3:22 AM Age: 88 years old Clinical indication: Injury or trauma; Fall; Other: Pain TECHNIQUE: Imaging protocol: Radiologic exam of the right ankle. Views: 3 or more views. COMPARISON: CR XR FOOT RT MIN 3V 03/12/2024 3:22 AM FINDINGS: Bones/joints: Normal. Soft tissues: Normal. IMPRESSION: No acute findings.
--- NOTE | 2024-03-12 02:51 | CT_ITS ---
PROCEDURE INFORMATION: Exam: CT Lumbar Spine Without Contrast Exam date and time: 03/12/2024 3:17 AM Age: 88 years old Clinical indication: Injury or trauma; Fall; Other: Pain; Additional info: Trauma, critical injury suspected TECHNIQUE: Imaging protocol: Computed tomography of the lumbar spine without contrast. Radiation optimization: All CT scans at this facility use at least one of these dose optimization techniques: automated exposure control; mA and/or kV adjustment per patient size (includes targeted exams where dose is matched to clinical indication); or iterative reconstruction. COMPARISON: CT THORACIC SPINE WO CON 03/12/2024 3:13 AM FINDINGS: Bones/joints: There is an inferior endplate compression fracture of L1. Anterior wedge compression fracture and superior endplate compression fracture of T11. Both appear to be chronic as there is no significant adjacent edema or hemorrhage. Scoliosis of the lumbar spine is S shaped. There is a dextro concave curvature centered at the L2 vertebral body. Soft tissues: Unremarkable. IMPRESSION: No definite acute traumatic injury. Likely chronic compression fracture of T11 and L1.
--- NOTE | 2024-03-12 02:51 | CT_ITS ---
PROCEDURE INFORMATION: Exam: CT Chest Without Contrast; Diagnostic Exam date and time: 03/12/2024 3:19 AM Age: 88 years old Clinical indication: Injury or trauma; Fall; Other: Pain TECHNIQUE: Imaging protocol: Diagnostic computed tomography of the chest without contrast. Radiation optimization: All CT scans at this facility use at least one of these dose optimization techniques: automated exposure control; mA and/or kV adjustment per patient size (includes targeted exams where dose is matched to clinical indication); or iterative reconstruction. COMPARISON: CT CHEST WO CON 03/12/2024 3:19 AM FINDINGS: Lungs: Some chronic interstitial changes. Basilar atelectasis. Pleural spaces: Unremarkable. No pneumothorax. No pleural effusion. Heart: Cardiomegaly. Aortic valve calcifications. Coronary arteries: Coronary atherosclerosis. Lymph nodes: Unremarkable. No enlarged lymph nodes. Vasculature: Unremarkable. No aortic aneurysm. Bones/joints: Healed left posterior rib fractures. T11 compression fracture. Soft tissues: Unremarkable. IMPRESSION: 1. T11 compression fracture likely chronic. No 2. Cardiomegaly with coronary atherosclerosis. 3. Dense aortic valve calcifications, this can be seen with aortic stenosis, consider echocardiography if not recently performed. acute injury identified.
--- NOTE | 2024-03-12 02:51 | XR_ITS ---
PROCEDURE INFORMATION: Exam: XR Right Shoulder Exam date and time: 03/12/2024 3:22 AM Age: 88 years old Clinical indication: Pain; Shoulder; Right TECHNIQUE: Imaging protocol: Radiologic exam of the right shoulder. Views: 2 or more views. COMPARISON: CT CHEST WO CON 03/12/2024 3:19 AM FINDINGS: Bones/joints: Osteoarthritic degenerative changes, mild osteopenia. Soft tissues: Normal. IMPRESSION: No acute findings.
--- NOTE | 2024-03-12 02:51 | CT_ITS ---
PROCEDURE INFORMATION: Exam: CT Abdomen And Pelvis Without Contrast Exam date and time: 03/12/2024 3:22 AM Age: 88 years old Clinical indication: Injury or trauma; Fall; Swelling TECHNIQUE: Imaging protocol: Computed tomography of the abdomen and pelvis without contrast. Radiation optimization: All CT scans at this facility use at least one of these dose optimization techniques: automated exposure control; mA and/or kV adjustment per patient size (includes targeted exams where dose is matched to clinical indication); or iterative reconstruction. COMPARISON: CR XR PELVIS 1-2V 04/02/2023 3:06 PM FINDINGS: Heart: Cardiomegaly. Liver: Normal. No mass. Gallbladder and biliary ducts: Normal. No calcified stones. No ductal dilation. Pancreas: Normal. No ductal dilation. Spleen: Normal. No splenomegaly. Adrenal glands: Normal. No mass. Kidneys and ureters: Normal. No hydronephrosis. Stomach and bowel: Unremarkable. No obstruction. No mucosal thickening. Appendix: No evidence of appendicitis. Intraperitoneal space: Unremarkable. No free air. No significant fluid collection. Vasculature: Unremarkable. No abdominal aortic aneurysm. Lymph nodes: Unremarkable. No enlarged lymph nodes. Urinary bladder: Unremarkable as visualized. Reproductive: Hysterectomy. Bones/joints: Healed right pelvic fractures. Degenerative changes of the lumbar spine. Compression fractures of T11 and L1 are noted. Soft tissues: Unremarkable. IMPRESSION: 1. No acute abdominal or pelvic injury identified. 2. Cardiomegaly. 3. Hysterectomy. 4. Healed right pelvic fractures. 5. Degenerative changes of the lumbar spine. 6. Compression fractures of T11 and L1 are noted. Likely chronic.
--- NOTE | 2024-03-12 02:51 | CT_ITS ---
PROCEDURE INFORMATION: Exam: CT Thoracic Spine Without Contrast Exam date and time: 03/12/2024 3:13 AM Age: 88 years old Clinical indication: Injury or trauma; Fall; Other: Pain; Additional info: Trauma, critical injury suspected TECHNIQUE: Imaging protocol: Computed tomography of the thoracic spine without contrast. Radiation optimization: All CT scans at this facility use at least one of these dose optimization techniques: automated exposure control; mA and/or kV adjustment per patient size (includes targeted exams where dose is matched to clinical indication); or iterative reconstruction. COMPARISON: CT CERVICAL SPINE WO CON 03/12/2024 3:11 AM FINDINGS: Bones/joints: Anterior wedge compression fracture of T11 is again noted. No adjacent hemorrhage or edema is seen. The patient is diffusely osteopenic. Soft tissues: Unremarkable. IMPRESSION: T11 compression fracture likely chronic, no acute injury identified.
--- NOTE | 2024-03-12 02:51 | XR_ITS ---
PROCEDURE INFORMATION: Exam: XR Right Foot Exam date and time: 03/12/2024 3:22 AM Age: 88 years old Clinical indication: Injury or trauma; Fall; Other: Pain TECHNIQUE: Imaging protocol: Radiologic exam of the right foot. Views: 3 or more views. COMPARISON: CR XR ANKLE RT MIN 3V 03/12/2024 3:22 AM FINDINGS: Bones/joints: Hallux valgus deformity. Hammertoe deformities. Mild osteopenia. No acute fracture or dislocation noted. Soft tissues: Normal. IMPRESSION: Hallux valgus deformity. Hammertoe deformities. Mild osteopenia. No acute fracture or dislocation noted.
--- NOTE | 2024-03-12 02:55 | HMH.EDGENADL ---
Discharge Plan Disposition Patient Disposition: Xfer SNF Prescriptions Prescriptions: No Action isosorbide dinitrate 10 MG tablet 10 mg PO BID buspirone 5 MG tablet 5 mg PO BID sennosides 8.6 MG tablet 8.6 mg PO DAILY polyethylene glycol 3350 17 GM powder in packet 17 g PO DAILY cetirizine 5 MG tablet 5 mg PO DAILY acetaminophen 500 MG tablet 500 mg PO Q4HP PRN (Reason: pain or fever) tamsulosin 0.4 MG capsule 0.4 mg PO DAILY levothyroxine 50 MCG tablet 50 mcg PO DAILY paroxetine HCl 20 MG tablet 20 mg PO DAILY metoprolol tartrate 50 MG tablet 50 mg PO BID cranberry 400 MG capsule 400 mg PO DAILY docusate sodium 100 MG capsule 100 mg PO DAILY montelukast 10 MG tablet 10 mg PO DAILY albuterol sulfate 6.7 GM HFA aerosol inhaler 6.7 g IH Q4HP PRN (Reason: copd) lisinopril 40 MG tablet 40 mg PO DAILY mirtazapine 7.5 MG tablet 7.5 mg PO DAILY omeprazole 20 MG tablet,delayed release (DR/EC) 20 mg PO DAILY PNV cmb#95-ferrous fumarate-FA 1 EACH tablet 2 each PO Q4HP PRN (Reason: copd) fluticasone furoate-vilanterol 1 EACH blister with device 1 inh IH DAILY Referrals Follow up/Referrals: Provider,Referral, MD [Primary Care Provider] - See instructions Activity Restrictions/Add. Instructions Additional Instructions/Restrictions: No new traumatic findings were noted on CT scans and x-rays. Please follow-up with your primary care provider. Please return to the emergency department if you develop any new or worsening symptoms or become concerned for your health. Clinical Impressions Clinical Impression: Fall Qualifiers: Encounter type: initial encounter Qualified Code(s): W19.XXXA - Unspecified fall, initial encounter Foot pain Qualifiers: Laterality: right Qualified Code(s): M79.671 - Pain in right foot Print Language Print Language: Kenyan Discharge ED Provider: Mac Rodriguez General Adult HPI General Chief complaint: Fall Stated complaint: unwitnessed fall Time Seen by Provider: 03/12/24 02:50 History of Present Illness HPI narrative: 88-year-old female presents after unwitnessed fall in the bathroom of her nursing facility. She walked herself back to her bed and then called for assistance. She is complaining of some pain in her head and neck as well as pain in her right foot. She is a poor historian and is unable to provide a great history of events. She reports that she thinks she fell but did not lose consciousness. This is her baseline mental status according to nursing facility and EMS. She denies any chest pain or abdominal pain. Denies any numbness, dizziness, shortness of breath. Has no other acute complaints at this time. She is not on blood thinners. Related Data Home Medications ?Medication ?Instructions ?Recorded ?Confirmed acetaminophen 500 mg tablet 500 mg PO Q4HP PRN pain or fever 02/15/22 06/04/23 albuterol sulfate 90 mcg/actuation 6.7 g inhalation Q4HP PRN copd 02/15/22 06/04/23 aerosol inhaler buspirone 5 mg tablet 5 mg PO BID anxiety disorder 02/15/22 06/04/23 cetirizine 5 mg tablet 5 mg PO DAILY allergies 02/15/22 06/04/23 cranberry 400 mg capsule 400 mg PO DAILY Supplement 02/15/22 06/04/23 docusate sodium 100 mg capsule 100 mg PO DAILY constipation 02/15/22 06/04/23 fluticasone furoate 100 1 inh inhalation DAILY COPD 02/15/22 06/04/23 mcg-vilanterol 25 mcg/dose inhalation powder isosorbide dinitrate 10 mg tablet 10 mg PO BID htn 02/15/22 06/04/23 levothyroxine 50 mcg tablet 50 mcg PO DAILY hypothyroidism 02/15/22 06/04/23 lisinopril 40 mg tablet 40 mg PO DAILY htn 02/15/22 06/04/23 metoprolol tartrate 50 mg tablet 50 mg PO BID Hypertension 02/15/22 06/04/23 mirtazapine 7.5 mg tablet 7.5 mg PO DAILY insomnia and 02/15/22 06/04/23 appetite montelukast 10 mg tablet 10 mg PO DAILY allergic rhinitis 02/15/22 06/04/23 omeprazole 20 mg tablet,delayed 20 mg PO DAILY GERD 02/15/22 06/04/23 release paroxetine HCl 20 mg tablet 20 mg PO DAILY major depressive 02/15/22 06/04/23 disorder polyethylene glycol 3350 17 gram 17 g PO DAILY constipation 02/15/22 06/04/23 oral powder packet vit no.95-ferrous 2 each PO Q4HP PRN copd 02/15/22 06/04/23 fumarate 28 mg-folic acid 800 mcg tablet sennosides 8.6 mg tablet 8.6 mg PO DAILY constipation 02/15/22 06/04/23 tamsulosin 0.4 mg capsule 0.4 mg PO DAILY neurogenical 02/15/22 06/04/23 bladder Allergies Allergy/AdvReac Type Severity Reaction Status Date / Time codeine [CODEINE] Allergy Unknown Verified 06/04/23 14:13 Penicillins [PENICILLINS] Allergy Unknown Verified 06/04/23 14:13 sulfamethoxazole Allergy Unknown Verified 06/04/23 14:13 [From Bactrim] trimethoprim [From Bactrim] Allergy Unknown Verified 06/04/23 14:13 [facility] Disclaimer: The information contained in this section may have been updated after the patient was seen, as this information can be updated by other users. Social History Smoking Status: Current every day smoker alcohol intake: never substance use type: denies use current occupational status: retired Travel in the last 8 weeks: None household members: none housing: apartment ROS Obtained: Yes All systems reviewed & no additional complaints except as documented Physical Exam General General appearance: alert and in no apparent distress Head Head exam: normocephalic and other (Right parietal scalp hematoma without laceration) Eye Eye exam: Present normal appearance, PERRL and EOMI ENT ENT exam: Present normal oropharynx and normal external ear exam Neck Neck exam: Present normal inspection and full ROM; Absent tenderness Chest Chest inspection: Present normal inspection and symmetric chest wall rise; Absent tenderness Respiratory Respiratory exam: Present normal lung sounds bilaterally; Absent respiratory distress Cardiovascular Cardiovascular exam: Present regular rate and normal rhythm Abdominal Exam Abdominal exam: Present soft; Absent distention, tenderness or guarding Extremities Exam Extremities exam: Present other (Diffuse bony tenderness, worse in the right shoulder and right foot.) Back Exam Back exam: Present normal inspection; Absent tenderness Neurological Exam Neurological exam: Present alert (At baseline); Absent motor sensory deficit Psychiatric Psychiatric exam: Present normal affect and normal mood Skin Skin exam: Present warm, dry and normal color Lymphatic Lymphatic Findings: no adenopathy Medical Decision Making Medical Records Medical records reviewed: Yes I reviewed the patient's medical records. Jakob Inquiry Pt receiving controlled substance: No Jakob was queried for this patient: No Vital Signs: 03/12/24 02:48 03/12/24 04:07 03/12/24 05:31 Temperature 97.7 F 97.7 F Temperature Source Oral Oral Pulse Rate 57 L 60 Pulse Rate [Right] 61 Respiratory Rate 20 20 20 Blood Pressure 110/72 140/68 Blood Pressure [Right Arm] 156/77 H Blood Pressure Mean [Right Arm] 103 Blood Pressure Source Automatic Cuff Automatic Cuff Blood Pressure Source [Right Arm] Automatic Cuff Blood Pressure Position Supine Blood Pressure Position [Right Arm] Supine 02 Sat by Pulse Oximetry 92 L 94 L 94 L Oxygen Delivery Method Room Air Room Air Room Air 03/12/24 05:43 Temperature 97.7 F Temperature Source Oral Pulse Rate 60 Pulse Rate [Right] Respiratory Rate 20 Blood Pressure 140/68 Blood Pressure [Right Arm] Blood Pressure Mean [Right Arm] Blood Pressure Source Automatic Cuff Blood Pressure Source [Right Arm] Blood Pressure Position Supine Blood Pressure Position [Right Arm] 02 Sat by Pulse Oximetry Oxygen Delivery Method Room Air Lab Data Lab results reviewed: Yes I reviewed the patient's lab results. Orders (Tests/Meds): ED MEDICATIONS Discontinued Medications Generic Name Dose Route Start Last Admin Trade Name Freq PRN Reason Stop Dose Admin Acetaminophen 1,000 mg 03/12/24 02:52 03/12/24 03:38 Acetaminophen 500mg Tab PO 03/12/24 02:53 1,000 mg ONCE ONE Administration ORDERS Category Date Time Status CT abdomen pelvis wo con Stat Cat Scan 03/12/24 02:[address] cervical spine wo con Stat Cat Scan 03/12/24 02:[address] chest wo con Stat Cat Scan 03/12/24 02:[address] head/brain wo con Stat Cat Scan 03/12/24 02:[address] lumbar spine wo con Stat Cat Scan 03/12/24 02:[address] thoracic spine wo con Stat Cat Scan 03/12/24 02:51 Completed Ankle XR -Right minimum 3 Views [XR ankle RT min 3V] Exams 03/12/24 02:51 Completed Stat Foot XR right minimum 3 views [XR foot RT min 3V] Stat Exams 03/12/24 02:51 Completed Shoulder XR right miminum 2 views [XR shoulder RT min Exams 03/12/24 02:51 Completed 2V] Stat Medical Decision Narrative: 88-year-old female [facility] patient with history of Alzheimer's as well as a variety of comorbidities presents for a fall in the bathroom, has a parietal scalp hematoma, complaining of foot pain. Was ambulatory on scene. History was obtained via interactive discussion with patient, EMS, nursing facility. On arrival, patient is afebrile, hemodynamically stable, well-appearing, moving all extremities spontaneously. Full physical exam performed and significant for generalized bony tenderness worse in the right shoulder and right foot. Patient has no other acute complaints. Differential includes but is not limited to intracranial intrathoracic intra-abdominal spine extremity trauma Patient was given Tylenol. Workup initiated including Noncon CTs of the head, chest, abdomen and pelvis, C, T, L-spine as well as radiographs of the right shoulder, right foot and ankle. On re-evaluation, patient [remains afebrile, HD stable.] Imaging independently interpreted by me and significant for no intracranial bleeding, no rib fractures. Patient has a chronic appearing T11 deformity over which she is not tender. Radiographs show no acute fracture. See radiology read for full review of final results. Given patient history, exam and workup, patient's presentation most likely represents fall with scalp hematoma. Patient was ambulated and discharged back to nursing facility. Procedures Risk/Benefits of Procedure(s) Were Explained: Yes Critical Care Critical Care Time Critical Care Time: No
[2024-03-12] MEDS: ACETAMINOPHEN 500MG TAB 1000 MG PO (03:38)
--- NOTE | 2024-03-12 03:45 | PC.NURSE ---
Pt. x-rays and CT scans done. Pt. medicated with Tylenol. Awaiting results.
[2024-03-12 04:07] VITALS: BP 110/72; PULSE 57; RESP 20; O2SAT 94
--- NOTE | 2024-03-12 04:34 | PC.NURSE ---
Called radiology to check with Vrad on reads
--- NOTE | 2024-03-12 05:18 | PC.NURSE ---
Report given to Luna nurse at [facility] . Pt. to go back to [facility].
--- NOTE | 2024-03-12 05:30 | PC.NURSE ---
[facility] called to arrage transport back to [facility].
[2024-03-12 05:31] VITALS: BP 140/68; PULSE 60; RESP 20; TEMP 36.5; O2SAT 94
[2024-03-12 05:43] VITALS: BP 140/68; PULSE 60; RESP 20; TEMP 36.5; O2SAT 94
== END 2024-03-12 05:52 ==
PROVIDERS: Emergency Provider Emergency Medicine
DX: S00.03XA Contusion of scalp, initial encounter (principal); M79.671 Pain in right foot; M25.511 Pain in right shoulder; W19.XXXA Unspecified fall, initial encounter
CPT/HCPCS: 70450; 71250; 72125; 72128; 72131; 73030; 73610; 73630; 74176; 99285

== ENCOUNTER 2025-01-15 18:55 | Emergency (ER) | payer MEDICARE, SELFPAY ==
--- NOTE | 2025-01-15 18:53 | CT_ITS ---
PROCEDURE INFORMATION: Exam: CT Cervical Spine Without Contrast Exam date and time: 01/15/2025 7:58 PM Age: 89 years old Clinical indication: Injury or trauma; Fall; Blunt trauma; Additional info: Fall on to back TECHNIQUE: Imaging protocol: Computed tomography of the cervical spine without contrast. Radiation optimization: All CT scans at this facility use at least one of these dose optimization techniques: automated exposure control; mA and/or kV adjustment per patient size (includes targeted exams where dose is matched to clinical indication); or iterative reconstruction. COMPARISON: CT HEAD/BRAIN WO CON 01/15/2025 7:56 PM FINDINGS: Bones: No acute fracture. Chronic C2 on C3 mild anterolisthesis. Chronic mild reversal of cervical lordosis. Vertebral body heights grossly preserved. Multilevel degenerative disc and joint space changes. Mild osteopenia. Lungs: Unremarkable. Soft tissues: Unremarkable. IMPRESSION: No acute findings.
--- NOTE | 2025-01-15 18:53 | CT_ITS ---
PROCEDURE INFORMATION: Exam: CT Thoracic Spine Without Contrast Exam date and time: 01/15/2025 8:01 PM Age: 89 years old Clinical indication: Injury or trauma; Fall; Blunt trauma (contusions or hematomas); Additional info: Fall on to back TECHNIQUE: Imaging protocol: Computed tomography of the thoracic spine without contrast. Radiation optimization: All CT scans at this facility use at least one of these dose optimization techniques: automated exposure control; mA and/or kV adjustment per patient size (includes targeted exams where dose is matched to clinical indication); or iterative reconstruction. COMPARISON: CT THORACIC SPINE WO CON 03/12/2024 3:13 AM FINDINGS: Bones/joints: Stable old moderate T11 compression fracture and mild superior endplate T12 compression fracture. Vertebral body heights otherwise intact. No acute fracture of the thoracic spine. Soft tissues: Unremarkable. IMPRESSION: No acute abnormality.
--- NOTE | 2025-01-15 18:53 | CT_ITS ---
PROCEDURE INFORMATION: Exam: CT Lumbar Spine Without Contrast Exam date and time: 01/15/2025 8:03 PM Age: 89 years old Clinical indication: Injury or trauma; Fall; Blunt trauma (contusions or hematomas); Additional info: Fall on to back TECHNIQUE: Imaging protocol: Computed tomography of the lumbar spine without contrast. Radiation optimization: All CT scans at this facility use at least one of these dose optimization techniques: automated exposure control; mA and/or kV adjustment per patient size (includes targeted exams where dose is matched to clinical indication); or iterative reconstruction. COMPARISON: CT LUMBAR SPINE WO CON 03/12/2024 3:17 AM FINDINGS: Bones/joints: Stable old mild inferior endplate compression fracture of L1. No acute fracture of the lumbar spine. Vertebral body heights are otherwise intact. [id number] levoscoliosis redemonstrated. Multilevel degenerative changes. Soft tissues: Unremarkable. IMPRESSION: No acute abnormality.
--- NOTE | 2025-01-15 18:53 | CT_ITS ---
PROCEDURE INFORMATION: Exam: CT Head Without Contrast Exam date and time: 01/15/2025 7:56 PM Age: 89 years old Clinical indication: Injury or trauma; Fall; Blunt trauma (contusions or hematomas); Additional info: Fall landed posterior head TECHNIQUE: Imaging protocol: Computed tomography of the head without contrast. Radiation optimization: All CT scans at this facility use at least one of these dose optimization techniques: automated exposure control; mA and/or kV adjustment per patient size (includes targeted exams where dose is matched to clinical indication); or iterative reconstruction. COMPARISON: CT HEAD/BRAIN WO CON 03/12/2024 3:08 AM FINDINGS: Brain: No hemorrhage. Underlying periventricular white matter changes and parenchymal cortical volume loss. No mass effect. Cerebral ventricles: No ventriculomegaly. Paranasal sinuses: Visualized sinuses are unremarkable. No fluid levels. Mastoid air cells: Visualized mastoid air cells are well aerated. Bones: Unremarkable. No acute fracture. Soft tissues: Right posterior vertex cephalohematoma. IMPRESSION: No acute intracranial abnormality.
[2025-01-15 18:54] VITALS: BP 194/117; PULSE 65; RESP 18; TEMP 36.4; O2SAT 97; BMI 19.8
--- NOTE | 2025-01-15 18:55 | XR_ITS ---
PROCEDURE INFORMATION: Exam: XR Chest Exam date and time: 01/15/2025 8:06 PM Age: 89 years old Clinical indication: Injury or trauma; Fall; Blunt trauma (contusions or hematomas) TECHNIQUE: Imaging protocol: Radiologic exam of the chest. Views: 1 view. COMPARISON: CT CHEST WO CON 03/12/2024 3:19 AM FINDINGS: Lungs: Unremarkable. No consolidation. Pleural spaces: Unremarkable. No pleural effusion. No pneumothorax. Heart/Mediastinum: Cardiomegaly redemonstrated. Bones/joints: Old right-sided rib fractures redemonstrated. No acute fracture. IMPRESSION: Stable chest x-ray with no acute disease.
--- NOTE | 2025-01-15 19:03 | ED_ITS ---
<Statement entered by Kailash Jaquez MD - 01/16/25 00:17> I was consulted by the FELIBERTO, and we discussed the complexity of the problems being addressed. I approved the treatment and management plan for this patient's care in the emergency department, thus performing a substantive portion of the medical decision making. Kailash Jaquez MD Discharge Plan Disposition Chief Complaint: Fall Prescriptions Prescriptions: No Action isosorbide dinitrate 10 MG tablet 10 mg PO BID buspirone 5 MG tablet 5 mg PO BID sennosides 8.6 MG tablet 8.6 mg PO DAILY polyethylene glycol 3350 17 GM powder in packet 17 g PO DAILY cetirizine 5 MG tablet 5 mg PO DAILY acetaminophen 500 MG tablet 500 mg PO Q4HP PRN (Reason: pain or fever) tamsulosin 0.4 MG capsule 0.4 mg PO DAILY levothyroxine 50 MCG tablet 50 mcg PO DAILY paroxetine HCl 20 MG tablet 20 mg PO DAILY metoprolol tartrate 50 MG tablet 50 mg PO BID cranberry fruit 400 MG capsule 400 mg PO DAILY docusate sodium 100 MG capsule 100 mg PO DAILY montelukast 10 MG tablet 10 mg PO DAILY albuterol sulfate 6.7 GM HFA aerosol inhaler 6.7 g IH Q4HP PRN (Reason: copd) lisinopril 40 MG tablet 40 mg PO DAILY mirtazapine 7.5 MG tablet 7.5 mg PO DAILY omeprazole 20 MG tablet,delayed release (DR/EC) 20 mg PO DAILY PNV cmb#95-ferrous fumarate-FA 1 EACH tablet 2 each PO Q4HP PRN (Reason: copd) fluticasone furoate-vilanterol 1 EACH blister with device 1 inh IH DAILY Referrals Follow up/Referrals: Provider,Referral, [Referring, Medical] - See instructions Print Language Print Language: Greenlandic Discharge ED Provider: Kailash Jaquez General Adult HPI General Chief complaint: Fall Stated complaint: Fall Time Seen by Provider: 01/15/25 18:57 History of Present Illness HPI narrative: patient is an 89-year-old female PMHx history of multiple falls, LBBB, NSTEMI, history of elevated troponin, who presents to the ED from retirement after a fall. Patient was standing, had a witnessed fall landing on her back, states that her head hit a doorknob on the way down. Related Data Home Medications ?Medication ?Instructions ?Recorded ?Confirmed acetaminophen 500 mg tablet 500 mg PO Q4HP PRN pain or fever 02/15/22 06/04/23 albuterol sulfate 90 mcg/actuation 6.7 g inhalation Q4 HP PRN copd 02/15/22 06/04/23 aerosol inhaler buspirone 5 mg tablet 5 mg PO BID anxiety disorder 02/15/22 06/04/23 cetirizine 5 mg tablet 5 mg PO DAILY allergies 05/0106/04/23 cranberry fruit 400 mg capsule 400 mg PO DAILY Supplem ent 02/15/22 06/04/23 docusate sodium 100 mg capsule 100 mg PO DAILY constip ation 02/15/22 06/04/23 fluticasone furoate 100 1 inh inhalation DAILY COPD 02/15/22 06/04/23 mcg-vilanterol 25 mcg/dose inhalation powder isosorbide dinitrate 10 mg tablet 10 mg PO BID htn 05/0106/04/23 levothyroxine 50 mcg tablet 50 mcg PO DAILY hypothyroi dism 02/15/22 06/04/23 lisinopril 40 mg tablet 40 mg PO DAILY htn 02/15/22 06/04/23 metoprolol tartrate 50 mg tablet 50 mg PO BID Hyperten olu 02/15/22 06/04/23 mirtazapine 7.5 mg tablet 7.5 mg PO DAILY insomnia and 02/15/22 06/04/23 appetite montelukast 10 mg tablet 10 mg PO DAILY allergic rhin itis 02/15/22 06/04/23 omeprazole 20 mg tablet,delayed 20 mg PO DAILY GERD 06/04/23 release paroxetine HCl 20 mg tablet 20 mg PO DAILY major depre ssive 02/15/22 06/04/23 disorder polyethylene glycol 3350 17 gram 17 g PO DAILY constip ation 02/15/22 06/04/23 oral powder packet vit no.95-ferrous 2 each PO Q4HP PRN copd 05/0106/04/23 fumarate 28 mg-folic acid 800 mcg tablet sennosides 8.6 mg tablet 8.6 mg PO DAILY constipation 02/15/22 06/04/23 tamsulosin 0.4 mg capsule 0.4 mg PO DAILY neurogenical 02/15/22 06/04/23 bladder Allergies Allergy/AdvReac Type Severity Reaction Status Date / Time codeine (CODEINE) Allergy Unknown Verified 06/04/23 14:13 Penicillins (PENICILLINS) Allergy Unknown Verified 06/04/23 14:13 sulfamethoxazole (From Allergy Unknown Verified 06/04/23 14:13 Bactrim) trimethoprim (From Bactrim) Allergy Unknown Verified 06/04/23 14:13 [facility] Disclaimer: The information contained in this section may have been updated after the patient was seen, as this information can be updated by other users. Social History Smoking Status: Never smoker alcohol intake: never substance use type: denies use current occupational status: retired Travel in the last 8 weeks?: None household members: none housing: apartment Have you lived/traveled outside [place] in past 30 days?: No Contact w/someone who lives/traveled outside [place] past 30 days?: No Exposure to someone with infectious disease in past 14 days?: No Do you have a fever (greater than 100.4 F or 38 C)?: No Have you tested positive for COVID-19?: No Exposed to someone with COVID-19 in past 14 days?: No Do you have a sore throat?: No Do you have a cough?: No Do you have any weakness?: No Do you have any diarrhea?: No Are you experiencing any unusual bleeding?: No Do you have any muscle aches/pain?: No Do you have any abdominal pain?: No Are you experiencing loss of taste or smell?: No Other Medical History Have you received the Flu Vaccine for this season: Yes Have you received the Pneumonia Vaccine: Yes ROS Obtained: Yes Systems reviewed as appropriate & no additional complaints exc ept as documented Physical Exam General General appearance: alert and in no apparent distress Head Head exam: other (Baseball sized posterior head swelling) Eye Eye exam: Present normal appearance, PERRL and EOMI ENT ENT exam: Present normal exam Neck Neck exam: Present normal inspection, full ROM and trachea midline; Absent te nderness Chest Chest inspection: Present normal inspection Respiratory Respiratory exam: Present normal lung sounds bilaterally and respiratory distress Cardiovascular Cardiovascular exam: Present regular rate Abdominal Exam Abdominal exam: Present soft; Absent distention or tenderness Extremities Exam Extremities exam: Present normal inspection and full ROM Back Exam Back exam: Present normal inspection and full ROM; Absent tenderness Neurological Exam Neurological exam: Present alert and other (Her orientation is at baseline) Psychiatric Psychiatric exam: Present normal affect Skin Skin exam: Present warm and dry Medical Decision Making Medical Records Screening: Per USPSTF and CDC recommendations, given the prevalence of disease in our region, it is our hospital?s policy to screen for HIV and viral Hepatitis for all patients aged 18 and over and those with ongoing risk factors. Jakob Inquiry Pt receiving controlled substance: No Vital Signs: 01/15/25 18:54 01/15/25 19:05 01/15/25 19:31 Temperature 97.5 F L Temperature Source Oral Pulse Rate 61 59 L Pulse Rate [Right] 65 Respiratory Rate 18 19 14 Blood Pressure 198/94 H 195/97 H Blood Pressure [Right Arm] 194/117 H Blood Pressure Mean [Right Arm] 142 02 Sat by Pulse Oximetry 97 93 L 97 Oxygen Delivery Method Room Air 01/15/25 20:31 01/15/25 21:01 Temperature Temperature Source Pulse Rate 58 L 55 L Pulse Rate [Right] Respiratory Rate 17 18 Blood Pressure 169/88 H 155/89 H Blood Pressure [Right Arm] Blood Pressure Mean [Right Arm] 02 Sat by Pulse Oximetry 97 96 Oxygen Delivery Method Orders (Tests/Meds): ED MEDICATIONS Discontinued Medications Generic Name Dose Route Start Last Admin Trade Name Freq PRN Reason Stop Dose Admin Acetaminophen 1,000 mg 01/15/25 18:53 01/15/25 19:25 Acetaminophen 1,000mg/100ml Vial IV 01/15/25 18:54 1,000 mg ONCE ONE Administration ORDERS Category Date Time Status CT cervical spine wo con Stat Cat Scan 01/15/25 18:[address] head/brain wo con Stat Cat Scan 01/15/25 18:[address] lumbar spine wo con Stat Cat Scan 01/15/25 18:[address] thoracic spine wo con Stat Cat Scan 01/15/25 18:53 Completed CXR --portable [XR chest portable] Stat Exams 01/15/25 18:55 Completed Medical Decision Narrative: In summary, patient is an 89-year-old female PMHx history of multiple falls, LBBB, NSTEMI, history of elevated troponin, who presents to the ED from retirement after a fall. Patient was standing, had a witnessed fall landing on her back, states that her head hit a doorknob on the way down. Patient did not lose consciousness. No blood thinners listed on retirement paperwork. Patient states that she has a very mild headache. Denies any additional injuries. Family at bedside. Denies fever, chills, visual disturbances, neck pain, back pain, nausea, vomiting. Differential diagnosis included ICH, fracture, malalignment, among others. Upon initial exam patient is alert, she is not oriented (baseline) and stable. Physical exam remarkable for baseball sized swelling noted on the posterior aspect of her head. Spinal exam reveals no step-offs or deformities, no tenderness. Patient was assessed for any additional injuries, none found. Discussed with patient we will proceed with CT scans, will administer acetaminophen for pain. CT C-spine final read unremarkable for any acute findings. CT head final read unremarkable for any acute intracranial abnormality,. Chest x-ray unremarkable for any acute findings. CT T-spine unremarkable for any acute abnormality, it is noted that she has a stable old T11 compression fracture with mild superior endplate T12 compression fracture. CT final read of the lumbar spine unremarkable for any acute abnormality. Discussed with patient that workup is overall unremarkable. Although she does have swelling on the posterior aspect of her head, this should decrease over the next 24 to 48 hours. Discussed follow-up with PCP. Attempted to call retirement to give report, no answer. Discussed with daughter return precautions to the ED. Critical Care Critical Care Time Critical Care Time: No
[2025-01-15 19:05] VITALS: BP 198/94; PULSE 61; RESP 19; O2SAT 93
[2025-01-15] MEDS: ACETAMINOPHEN 1,000MG/100ML VIAL 1000 MG IV (19:25)
[2025-01-15 19:31] VITALS: BP 195/97; PULSE 59; RESP 14; O2SAT 97
--- NOTE | 2025-01-15 20:03 | PC.NURSE ---
Pt transported to CT
[2025-01-15 20:31] VITALS: BP 169/88; PULSE 58; RESP 17; O2SAT 97
[2025-01-15 21:01] VITALS: BP 155/89; PULSE 55; RESP 18; O2SAT 96
--- NOTE | 2025-01-15 21:55 | PC.NURSE ---
Attempt to contact [facility] with no answer at this time.
--- NOTE | 2025-01-15 22:08 | PC.NURSE ---
3rd attempt at contacting [facility] for patient report prior to patient leaving. Spoke with SHERYL Sanchez
[2025-01-15 22:39] VITALS: BP 158/82; PULSE 56; RESP 16; TEMP 36.6; O2SAT 93
== END 2025-01-15 22:41 | disposition home or self-care (01) ==
PROVIDERS: Emergency Provider Emergency Medicine; PCP Internal Medicine Adolescent Medicine
DX: S09.90XA Unspecified injury of head, initial encounter (principal); R22.0 Localized swelling, mass and lump, head; R51.9 Headache, unspecified; F03.90 Unspecified dementia, unspecified severity, without behavioral disturbance, psychotic disturbance, mood disturbance, and anxiety; W19.XXXA Unspecified fall, initial encounter
CPT/HCPCS: 70450; 71045; 72125; 72128; 72131; 96374; 99285; J0131

== ENCOUNTER 2025-01-30 00:26 | Emergency (ER) | payer MEDICARE, SELFPAY ==
--- OUTSIDE RECORDS SUMMARY | 2024-12-19 05:10 | XMS_ITS | Continuity of Care Document ---
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 Name Role Phone Maribel Del Rosario MA, CCCA Unavailable Unavailable Allergies, Adverse Reactions, Alerts Substance Reaction Status Criticality Penicillins Active No Information codeine Active No Information trimethoprim Active No Information sulfamethoxazole Active No Informat ion Medications Medication Instructions Dosage Effective Dates (start - stop) Status Comments furosemide 20 mg tablet - Ac tive paroxetine 10 mg tablet - Ac tive Antifungal (miconazole) 2 % topical cream - Active amlodipine 10 mg tablet - Ac tive nystatin 100,000 unit/mL ora l suspension - Active cetirizine 5 mg tablet - Act michael furosemide 40 mg tablet - Ac tive albuterol sulfate 0.63 mg/3 mL solution for nebulization - Active Triple Antibiotic 3.5 mg-400 unit-5,000 unit/gram topical ointment - Active senna 8.6 mg tablet - Active acetaminophen 500 mg tablet - Active polyethylene glycol 3350 17 gram/dose oral powder - Active acyclovir 400 mg tablet - Ac tive acyclovir 800 mg tablet - Ac tive levothyroxine 50 mcg tablet - Active Breo Ellipta 100 mcg-25 mcg/dose powder for inhalation - Active isosorbide dinitrate 10 mg tablet - Active prednisone 10 mg tablet - Ac tive prednisone 20 mg tablet - Ac tive buspirone 5 mg tablet - Acti ve mirtazapine 7.5 mg tablet - Active fluticasone furoate 100 mcg-vilanterol 25 mcg/dose inhalation powder - Active paroxetine 30 mg tablet - Ac tive albuterol sulfate HFA 90 mcg/actuation aerosol inhaler - Active levothyroxine 75 mcg tablet - Active Namzaric 28 mg-10 mg capsule sprinkle,extended release - Active amlodipine 5 mg tablet - Act michael montelukast 10 mg tablet - A ctive lisinopril 40 mg tablet - Ac tive paroxetine 40 mg tablet - Ac tive metoprolol tartrate 25 mg tablet - Active tamsulosin 0.4 mg capsule - Active omeprazole 20 mg capsule,delayed release - Active budesonide 0.5 mg/2 mL suspension for nebulization - Active Perforomist 20 mcg/2 mL solution for nebulization - Active clonidine HCl 0.1 mg tablet - Active metoprolol tartrate 50 mg tablet - Active lisinopril 20 mg tablet - Ac tive famotidine 20 mg tablet - Ac tive paroxetine 20 mg tablet - tive metoprolol succinate ER 100 mg tablet,extended release 24 hr - Active hydrochlorothiazide 25 mg tablet - Active Procedures Procedure Date COMPREHENSIVE HEARING TEST REMOVE IMPACTED EAR WAX Trim Dystrophic nail(s) DEBRIDE NAIL 1-5 Periodic Oral Evaluation Complete Series Of Radiographic Images F eb-03-2025 Trim dystrophic nail(s) in length, any n umber Debride mycotic, thick nails 1-5 2024 Trim nail(s) SBSQ NF CARE LOW MDM 20 REMOVE IMPACTED EAR WAX PARING/CUTG B9 HYPRKER LES 1 DEBRIDE NAIL 1-5 Trim nail(s) DEBRIDE NAIL 6 OR MORE COMPRE OPH EXAM EST PT 1/> REMOVE IMPACTED EAR WAX Compsve Oral Eval- New/Est Pat PARING/CUTG B9 HYPRKER LES 1 DEBRIDE NAIL 6 OR MORE PARING/CUTG B9 HYPRKER LES 1 DEBRIDE NAIL 6 OR MORE COMPREHENSIVE HEARING TEST DEBRIDE NAIL 6 OR MORE TRIM SKIN LESION DEBRIDE NAIL 6 OR MORE Vision svcs frames purchases FITTING OF SPECTACLES DETERMINATION OF REFRACTIVE STATE Lens spher bifoc plano 4.00d EYE EXAM & TREATMENT TRIM SKIN LESION DEBRIDE NAIL 6 OR MORE NURSING FAC CARE SUBSEQ Compsve Oral Eval- New/Est Pat TRIM SKIN LESION DEBRIDE NAIL 6 OR MORE PURE TONE AUDIOMETRY (THRESHOLD); AIR AN D BONE SPEECH AUDIOMETRY THRESHOLD; TRIM SKIN LESION DEBRIDE NAIL 6 OR MORE EYE EXAM NEW PATIENT NURSING FAC CARE SUBSEQ Limited Oral Eval Prob Focused PPE Limited Oral Eval Prob Focused 20 PPE Advance Directives Directive Yes / No Effective Date File Name No Information Encounters Encounter Description Practice Location Reason(s) For Visit Diagnoses Date Provider Providers Copied on Encounter [address] [place] [address], [address] [place] [address], [place], [place], [id number], tel:[phone] [facility] Sensorineural hearing loss, bilateral 5 Miguel Ángel [place], [place]. Referring Provider: Meño Tian. [address] [place] [address], [address] [place] [address], [place], [place], [id number], tel:[phone] [facility] ear care exam (chief complaint) Impacted cerumen, bilateral Nov- 5 [place]. Referring Provider: Meño Tian. [address] [place] [address], [address] [place] [address], [place], [place], [id number], tel:[phone] [facility] Nail dystrophyOnycho gryphosisOther specified peripheral vascular diseasesOther abnormalities of gait and mobility 5 [place], [place]. [address] [place] [address], [address] [place] [address], [place], [place], [id number], tel:[phone] [facility] No Information 5 [place], [place]. [address] [place] [address], [address] [place] [address], [place], [place], [id number], tel:[phone] [facility] Encounter for dental examination and cleaning without abnormal findings 5 Ibrahima Dobson. [address] [place] [address], [facility] 300, [place], [place], [id number], . tel:[phone] Referring Provider: Meño Tian. [address] [place] [address], [address] [place] [address], [place], [place], [id number], tel:[phone] [facility] Other specified peripheral vascular diseasesNail dystrophyOnycho gryphosisCorns and callosities 5 [place]. SBSQ NF CARE LOW MDM 20 [facility], [address] [place] [address], [place], [place], [id number], [place] tel:[phone] [facility] Nail dystrophyOnycho gryphosisOther specified peripheral vascular diseases 4 [place]. [facility] [place], [address] [place] [address], [place], [place], [id number], [place] tel:[phone] [facility] ear care exam (chief complaint) Impacted cerumen, bilateral Sep-0 4 [facility]. , [place]. Referring Provider: Meño Tian. [facility], [address] [place] [address], [place], [place], [id number], [place] tel:[phone] [facility] Corns and callositiesOthe r specified peripheral vascular diseasesTinea unguiumNail dystrophy 4 Omi De La Cruz. [address], [address], [place], [address], [place]. [facility], [address] [place], [place] [address], [place], [place], [id number], [place] tel:[phone] [facility] floaters (chief complaint) Vitreous degeneration, bilateral 4 Joaquin [place]. , [place]. Referring Provider: Meño Tian. [facility], [address] [place] [address], [place], [place], [id number], [place] tel:[phone] [facility] ear care exam (chief complaint) Impacted cerumen, bilateral 4 [facility]. , [place]. Referring Provider: Meño Tian. [facility], [address] [place] [address], [place], [place], [id number], [place] tel:[phone] [facility] Encounter for dental examination and cleaning without abnormal findings 4 Jamarcus Zavala. [address], [address], [place], [place], [id number], [place]. tel:[phone] Referring Provider: Meño Tian. [facility], [address] [place], [place] [address], [place], [place], [id number], tel:[phone] [facility] Corns and callositiesTine a unguiumOther specified peripheral vascular diseases [address] [place] [address], [address], [place], [address], . Referring Provider: Meño Tian. [facility], [address] [place], [place] [address], [place], [place], [id number], tel:[phone] [facility] Corns and callositiesTine a unguiumOther specified peripheral vascular diseases [address] [place] [address], [address], [place], [facility], . Referring Provider: Meño Tian. [facility] [place] [facility], [address] [place], [place] [address], [place], [place], [id number], tel:[phone] [facility] No Information [id number] [place] [address], [address], [place], [facility], [place]. [facility] [place] [facility], [address] [place], [place] [address], [place], [place], [id number], tel:[phone] [facility] Sensorineural hearing loss, bilateral 4 [place], [place]. Referring Provider: Meño Tian. [facility], [address] [place], [place] [address], [place], [place], [id number], tel:[phone] [facility] Tinea unguiumOther specified peripheral vascular diseases 3 Omi De La Cruz. [address] [place] [address], [address], [place], [address], [place]. [facility], [address] [place], [place] [address], [place], [place], [id number], tel:[phone] [facility] Tinea unguiumCorns and callositiesOthe r specified peripheral vascular diseases [address] [place] [address], [address], [place], [address], [place]. Referring Provider: Meño Tian. [facility], [address] [place], [place] [address], [place], [place], [id number], [place] tel:[phone] [facility] Presbyopia 3 Gabe Dobson. [address] [facility], [address], [place], [address], [place]. [address] [place] [address] [place], [address] [place], [place] [address], [place], [place], [id number], [place] tel:[phone] [facility] Dry eyes (chief complaint) Other chronic allergic conjunctivitisV itreous degeneration, bilateral 3 Gabe Dobson. [address] [facility], [address], [place], [address], [place]. Referring Provider: Meño Tian. [facility], [address] [place], [place] [address], [place], [place], [id number], [place] tel:[phone] [facility] Tinea unguiumOther specified peripheral vascular diseasesCorns and callosities 3 Omi De La Cruz. [address] [facility], [address], [place], [address], [place]. Referring Provider: Meño Tian. NURSING FAC CARE SUBSEQ [address] [place] [address] [place], [address] [place], [place] [address], [place], [place], [id number], [place] tel:[phone] [facility] hearing loss (chief complaint) Sensorineural hearing loss, bilateral 3 [place] rosalio Padma. [address] [facility], [address], [place], [address], [place]. Referring Provider: Meño Tian. [address] [place] [address], [address] [place], [place] [address], [place], [id number], [place] tel:[phone] [facility] No Information 3 Jony Rubi. [address] [facility], [address], [place], [place], [id number], [place]. tel:[phone] [place] [address], [address] [place] [address], [place], [place], [id number], [place] tel:[phone] [facility] Encounter for dental examination and cleaning without abnormal findings 3 [place], [place]. Referring Provider: Meño Tian. [address] [place] [address] [place], [address] [place] [address], [place], [place], [id number], [place] tel:[phone] [facility] Tinea unguiumCorns and callositiesOthe r specified peripheral vascular diseases 2 Omi De La Cruz. [address] [facility], [address], [place], [address], [place]. Referring Provider: Meño Barry. [address] [place] [address], [address] [place] [address], [place], [place], [id number], [place] tel:[phone] [facility] Sensorineural hearing loss, bilateral 2 [place], [place]. Referring Provider: Meño Tian. [facility] [place], [address] [place] [address], [place], [place], [id number], [place] tel:[phone] [facility] Tinea unguiumOther specified peripheral vascular diseasesCorns and callosities 2 Omi De La Cruz. [address] [facility], [address], [place], [address], [place]. Referring Provider: Meño Tian. [address] [place] [address], [address] [place] [address], [place], [place], [id number], [place] tel:[phone] [facility] Blurry vision (chief complaint) Vitreous degeneration, bilateral 2 Kreinest Olya. [address] [place] [address], [address], [place], [address], [place]. Referring Provider: Meño Tian. [address] [place] [address], [address] [place] [address], [place], [place], [id number], [place] tel:[phone] [facility] No Information 2 Kreinest Olya. [address] [place] [address], [address], [place], [address], [place]. NURSING FAC CARE SUBSEQ [address] [place] [address], [address] [place] [address], [place], [place], [id number], tel:[phone] [facility] hearing loss (chief complaint) Unspecified hearing loss, bilateral December- 2 [place] rosalio Padma. [address] [facility], [address], [place], [address], . Referring Provider: Meño Tian. [address] [place] [address], [address] [facility] 300, [place], [place], [id number], tel:[phone] [facility] Encounter for dental exam and cleaning w/o abnormal findings Mar-0 1 [place] Joe Rsavani. [address] [facility], [address], [place], [place], [id number], . tel:[phone] Referring Provider: Meño Tian. [address] [place] [address], [address] [facility], [place], [place], [id number], tel:[phone] [facility] Encounter for dental exam and cleaning w/o abnormal findings Apr-2 0 Ericka Joe Sravani. [address] [facility], [address], [place], [place], [id number], . tel:[phone] Referring Provider: Meño Tian. Family History Family Member Type Diagnosis Age At Onset No Information Payers Payer name Insurance type Covered constitution party ID Authoriza tion(s) [employer] Medicare [id number] Medicaid [facility] [id number] Social History Type Description Quantity Date Captured Comments Alcohol Use Details Unknown Caffeine Use Details Unknown Tobacco Use Status No Information Smoking Status No Information Sex Female Chief Complaint And Reason For Visit No Information Reason For Referral Reason For Referral No Information Plan Of Treatment Date Type Action Status Appointment Simran Myers BOOKED Patient Education Learning About Dental Care and Your Health Problem completed Patient Education Earwax Blockage: Care I nstructions completed Patient Education Learning About Dental Care and Your Health Problem completed Patient Education Earwax Blockage: Care I nstructions completed Patient Education Learning About Dental C are and Your H~ completed Patient Education Learning About Dental C are and Your H~ completed History Of Present Illness Encounter Date Complaint History Of Prese nt Illness floaters The 88 year old patient presents for evaluation of floaters in the right eye and left eye. It occurs with no pattern. The symptom is occasional. Patient denies: eye pain and flashes. Dry eyes The 87 year old patient presents for evaluation of Dry eyes in the right eye and left eye. It occurs all the time. Eyes are itchy too, blurry vision. Used to have specs. Neighbor said they were lost. Blurry vision The 86 year old female presents for evaluation of Blurry vision in the right eye and left eye. It occurs all the time. The onset was gradual. It affects both near and far vision. The symptom is constant. The condition is moderate. Functional Status Date Functional Assessmen t No Information Instructions Date Instruction Additional Infor mation The patient's functi onal hearing appears to be good in both ears despite the documented hearing loss. She was able to repeat back words with good accuracy in both ears. Her HL has remained stable over the past few years. Further treatment is not recommended a this time. Related to Sensorineural hearing loss, bilateral Performed cerumen re moval as per protocol. AU cleared. Follow up for reevaluation for chronic cerumen impaction. Related to Impacted cerumen, bilateral All of the documente d thickened nails (which includes those nails 2 mm or more in thickness, and possible mycotic component to the nails) were debrided in both length and thickness using both a nail nipper and an electric rotary miter grinder operator in an atraumatic fashion; this was performed in an attempt to prevent pain and reduce risk of infection. Alcohol applied to the digits afterwards. Related to Onychogryphosis Discussed using comp ression stockings to assist in localize swelling and venous return, and the custodial benefits of using compression stockings. Reinforced the importance of proper adherence to using the tasha hose, and compression stockings. Will continue to monitor. Related to Other specified peripheral vascular diseases PT instructed to con tinue use of DME equipment for safety, mobility, and reducing risk of falls/injury. Will continue to monitor. Pt denies recent falls in the past 3 months. Related to Other abnormalities of gait and mobility All documented dystr ophic nails were reduced in length as needed to prevent pain and other symptoms. Related to Nail dystrophy Pt denies pain on gr eat toe callus, no streaking, or rubor. Related to Corns and callosities Discussed using comp ression stockings to assist in localize swelling and venous return, and the custodial benefits of using compression stockings. Reinforced the importance of proper adherence to using the tasha hose, and compression stockings. Will continue to monitor. Related to Other specified peripheral vascular diseases All documented dystr ophic nails were reduced in length as needed to prevent pain and other symptoms. Related to Nail dystrophy All documented thick ened nails were debrided using a rotary tool and nail nipper. Related to Onychogryphosis Discussed using comp ression stockings to assist in localize swelling and venous return, and the custodial benefits of using compression stockings. Reinforced the importance of proper adherence to using the tasha hose, and compression stockings. Will continue to monitor. Related to Other specified peripheral vascular diseases All documented dystr ophic nails were reduced in length as needed to prevent pain and other symptoms. Related to Nail dystrophy All documented thick ened nails were debrided using a rotary tool and nail nipper. Related to Onychogryphosis Performed cerumen re moval as per protocol. AU cleared. Follow up for reevaluation for chronic cerumen impaction. Would recommend audiology referral at this time for evaluation patient wishes to pursue. Related to Impacted cerumen, bilateral All dystrophic nails were debrided in length and thickness as needed to prevent pain and other symptoms. Related to Nail dystrophy All of the calluses were debrided/pared to prevent further tissue breakdown and pain. Related to Corns and callosities Toenails x 3 were de brided in length and thickness without incident. Follow up in 2-3 months. 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 Related to Vitreous degeneration, bilateral Impression/Plan - Vi treous floaters are present; however, no holes, breaks, or tears are evident. Related to Vitreous degeneration, bilateral Follow up - Return i n 12-15 months for dilated fundus exam. Related to Vitreous degeneration, bilateral Performed cerumen re moval as per protocol. AU cleared. Follow up for reevaluation for chronic cerumen impaction. Would recommend audiology referral at this time for evaluation patient wishes to pursue. Related to Impacted cerumen, bilateral All of the calluses were debrided/pared to prevent further tissue breakdown and pain. Related to Corns and callosities Toenails 1-5 b/l wer e debrided in length and thickness without incident. Follow up in 2-3 months. 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 Related to Corns and callosities Toenails 1-5 b/l wer e debrided in length and thickness without incident. Follow up in 2-3 months. 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 Hearing aids were not recommended. Related to Sensorineural hearing loss, bilateral Toenails 1-5 b/l wer e debrided in length and thickness without incident. Follow up in 2-3 months. 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 Follow up in 2-3 months. 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 Related to Corns and callosities Impression/Plan - Vi treous floaters are present; however, no holes, breaks, or tears are evident. Related to Vitreous degeneration, bilateral Impression/Plan - St art pataday igtt bid OU. Monitor Related to Other chronic allergic conjunctivitis Toenails 1-5 b/l wer e debrided in length and thickness without incident. Follow up in 2-3 months. 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 Related to Corns and callosities follow up in 12-15 m [facility] or sooner if needed. Related to Sensorineural hearing loss, bilateral Toenails 1-5 b/l wer e debrided in length and thickness without incident. Follow up in 2-3 months. 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 Related to Corns and callosities Toenails 1-5 b/l wer e debrided in length and thickness without incident. Follow up in 2-3 months. 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 Related to Corns and callosities We will schedule an appoinment in 12-15 months for a dilated fundus exam. Related to Vitreous degeneration, bilateral Impression/Plan - Vi treous floaters are present; however, no holes, breaks, or tears are evident. Related to Vitreous degeneration, bilateral Follow up - We will schedule an appoinment in 12-15 months for a dilated fundus exam. Related to Vitreous degeneration, bilateral Recommend referral t o audiology per patient's request. Follow up in 6-9 months or sooner if needed. Related to Unspecified hearing loss, bilateral Assessments Type Assessment Date assessment Sensorineural hearing loss, julianne lowry impression A sloping mild to se delmy, sensorineural type hearing loss was documented in both ears from 500-8000Hz. Patient Care Teams Name Effective Dates (start - stop) Status Members No Information
--- NOTE | 2025-01-30 00:29 | XR_ITS ---
PROCEDURE INFORMATION: Exam: XR Pelvis Exam date and time: 01/30/2025 1:27 AM Age: 89 years old Clinical indication: Pelvic pain; Additional info: Fall TECHNIQUE: Imaging protocol: Radiologic exam of the pelvis. Views: 1 or 2 view. COMPARISON: CT ABDOMEN PELVIS WO CON 03/12/2024 3:22 AM FINDINGS: Bones/joints: Chronic appearing deformity of the right pubic bone. No acute fracture Soft tissues: Unremarkable. Gastrointestinal tract: Nonobstructive bowel gas pattern IMPRESSION: 1. Old deformity of the right pubic bone from previous fractures. 2. No definite acute abnormality.
--- NOTE | 2025-01-30 00:29 | XR_ITS ---
PROCEDURE INFORMATION: Exam: XR Chest Exam date and time: 01/30/2025 1:27 AM Age: 89 years old Clinical indication: Sternal or substernal pain; Additional info: Fall TECHNIQUE: Imaging protocol: Radiologic exam of the chest. Views: 1 view. COMPARISON: CR XR CHEST PORTABLE 01/15/2025 8:06 PM FINDINGS: Lungs: No acute airspace pattern infiltrates. No acute airspace infiltrates or effusions Pleural spaces: Unremarkable. No pleural effusion. No pneumothorax. Heart/Mediastinum: Cardiomegaly Bones/joints: Old right lateral rib fractures IMPRESSION: 1. No definite acute abnormality 2. Suspect chronic lung disease.
--- NOTE | 2025-01-30 00:29 | CT_ITS ---
PROCEDURE INFORMATION: Exam: CT Cervical Spine Without Contrast Exam date and time: 01/30/2025 1:48 AM Age: 89 years old Clinical indication: Injury or trauma; Fall; Blunt trauma TECHNIQUE: Imaging protocol: Computed tomography of the cervical spine without contrast. Radiation optimization: All CT scans at this facility use at least one of these dose optimization techniques: automated exposure control; mA and/or kV adjustment per patient size (includes targeted exams where dose is matched to clinical indication); or iterative reconstruction. COMPARISON: CT CERVICAL SPINE WO CON 01/15/2025 7:58 PM FINDINGS: Bones: No acute fracture. There is slight reversal of the lordotic curve centered C4. There is diffuse severe degenerative disc disease. Diffuse mild facet arthropathy is noted. No significant disc bulge or herniation. No severe spinal canal stenosis. Bony foraminal stenosis is noted on the right from C3-C4 through C5-C6 and on the left C5-C6 and C6-C7. Lungs: Lung apices are normal. Soft tissues: Unremarkable. IMPRESSION: No acute cervical spine fracture.
--- NOTE | 2025-01-30 00:29 | CT_ITS ---
PROCEDURE INFORMATION: Exam: CT Head Without Contrast Exam date and time: 01/30/2025 1:45 AM Age: 89 years old Clinical indication: Injury or trauma; Fall; Blunt trauma (contusions or hematomas) TECHNIQUE: Imaging protocol: Computed tomography of the head without contrast. Radiation optimization: All CT scans at this facility use at least one of these dose optimization techniques: automated exposure control; mA and/or kV adjustment per patient size (includes targeted exams where dose is matched to clinical indication); or iterative reconstruction. COMPARISON: CT HEAD/BRAIN WO CON 01/15/2025 7:56 PM FINDINGS: Brain: There is age related atrophy. No hemorrhage. There is prominent periventricular white matter hypodensity consistent with chronic small vessel disease. No mass effect. Cerebral ventricles: Ventricular enlargement secondary to parenchymal atrophy. Paranasal sinuses: Visualized sinuses are unremarkable. No fluid levels. Mastoid air cells: Visualized mastoid air cells are well aerated. Orbital cavities: The orbital contents are symmetric and normal. Bones: Unremarkable. No acute fracture. Soft tissues: There is a small posterior right parietal scalp hematoma. IMPRESSION: 1. No acute intracranial abnormality. 2. Small posterior right parietal scalp hematoma.
[2025-01-30 00:30] VITALS: BP 158/81; PULSE 61; RESP 18; TEMP 37.2; O2SAT 94
--- NOTE | 2025-01-30 00:30 | XR_ITS ---
PROCEDURE INFORMATION: Exam: XR Left Knee Exam date and time: 01/30/2025 1:27 AM Age: 89 years old Clinical indication: Injury or trauma; Fall; Blunt trauma; Knee; Left TECHNIQUE: Imaging protocol: Radiologic exam of the left knee. Views: 3 views. COMPARISON: No relevant prior studies available. FINDINGS: Bones/joints: Normal. Soft tissues: Meniscal calcification. Otherwise normal. IMPRESSION: No acute findings.
--- NOTE | 2025-01-30 00:30 | XR_ITS ---
PROCEDURE INFORMATION: Exam: XR Right Knee Exam date and time: 01/30/2025 1:27 AM Age: 89 years old Clinical indication: Injury or trauma; Fall; Blunt trauma; Knee; Right TECHNIQUE: Imaging protocol: Radiologic exam of the right knee. Views: 3 views. COMPARISON: CR XR KNEE RT 3V 05/28/2019 12:55 PM FINDINGS: Bones/joints: No joint effusion. No acute fracture Soft tissues: Normal. Other findings: Calcified menisci IMPRESSION: No visible acute fracture/malalignment.
--- NOTE | 2025-01-30 00:33 | HMH.EDGENADL ---
Discharge Plan Disposition Patient Disposition: Xfer SNF Prescriptions Prescriptions: No Action isosorbide dinitrate 10 MG tablet 10 mg PO BID buspirone 5 MG tablet 5 mg PO BID sennosides 8.6 MG tablet 8.6 mg PO DAILY polyethylene glycol 3350 17 GM powder in packet 17 g PO DAILY cetirizine 5 MG tablet 5 mg PO DAILY acetaminophen 500 MG tablet 500 mg PO Q4HP PRN (Reason: pain or fever) tamsulosin 0.4 MG capsule 0.4 mg PO DAILY levothyroxine 50 MCG tablet 50 mcg PO DAILY paroxetine HCl 20 MG tablet 20 mg PO DAILY metoprolol tartrate 50 MG tablet 50 mg PO BID cranberry fruit 400 MG capsule 400 mg PO DAILY docusate sodium 100 MG capsule 100 mg PO DAILY montelukast 10 MG tablet 10 mg PO DAILY albuterol sulfate 6.7 GM HFA aerosol inhaler 6.7 g IH Q4HP PRN (Reason: copd) lisinopril 40 MG tablet 40 mg PO DAILY mirtazapine 7.5 MG tablet 7.5 mg PO DAILY omeprazole 20 MG tablet,delayed release (DR/EC) 20 mg PO DAILY PNV cmb#95-ferrous fumarate-FA 1 EACH tablet 2 each PO Q4HP PRN (Reason: copd) fluticasone furoate-vilanterol 1 EACH blister with device 1 inh IH DAILY Referrals Follow up/Referrals: Provider,Referral, MD [Referring, Medical] - See instructions Activity Restrictions/Add. Instructions Additional Instructions/Restrictions: CT scan of the head and neck and radiographs of the chest pelvis and knees showed no acute abnormalities. Clinical Impressions Clinical Impression: Fall, Knee pain Print Language Print Language: Lao Discharge ED Provider: Mac Rodriguez General Adult HPI General Chief complaint: Fall Stated complaint: fall Time Seen by Provider: 01/30/25 00:33 History of Present Illness HPI narrative: 89 female with history of dementia presents for an unwitnessed fall from the nursing facility. Patient reported some knee pain to EMS but does not report any pain to me. She is awake, alert, interactive but is unable to provide any significant history. Related Data Home Medications ?Medication ?Instructions ?Recorded ?Confirmed acetaminophen 500 mg tablet 500 mg PO Q4HP PRN pain or fever 02/15/22 06/04/23 albuterol sulfate 90 mcg/actuation 6.7 g inhalation Q4HP PRN copd 02/15/22 06/04/23 aerosol inhaler buspirone 5 mg tablet 5 mg PO BID anxiety disorder 02/15/22 06/04/23 cetirizine 5 mg tablet 5 mg PO DAILY allergies 02/15/22 06/04/23 cranberry fruit 400 mg capsule 400 mg PO DAILY Supplement 02/15/22 06/04/23 docusate sodium 100 mg capsule 100 mg PO DAILY constipation 02/15/22 06/04/23 fluticasone furoate 100 1 inh inhalation DAILY COPD 02/15/22 06/04/23 mcg-vilanterol 25 mcg/dose inhalation powder isosorbide dinitrate 10 mg tablet 10 mg PO BID htn 02/15/22 06/04/23 levothyroxine 50 mcg tablet 50 mcg PO DAILY hypothyroidism 02/15/22 06/04/23 lisinopril 40 mg tablet 40 mg PO DAILY htn 02/15/22 06/04/23 metoprolol tartrate 50 mg tablet 50 mg PO BID Hypertension 02/15/22 06/04/23 mirtazapine 7.5 mg tablet 7.5 mg PO DAILY insomnia and 02/15/22 06/04/23 appetite montelukast 10 mg tablet 10 mg PO DAILY allergic rhinitis 02/15/22 06/04/23 omeprazole 20 mg tablet,delayed 20 mg PO DAILY GERD 02/15/22 06/04/23 release paroxetine HCl 20 mg tablet 20 mg PO DAILY major depressive 02/15/22 06/04/23 disorder polyethylene glycol 3350 17 gram 17 g PO DAILY constipation 02/15/22 06/04/23 oral powder packet vit no.95-ferrous 2 each PO Q4HP PRN copd 02/15/22 06/04/23 fumarate 28 mg-folic acid 800 mcg tablet sennosides 8.6 mg tablet 8.6 mg PO DAILY constipation 02/15/22 06/04/23 tamsulosin 0.4 mg capsule 0.4 mg PO DAILY neurogenical 02/15/22 06/04/23 bladder Allergies Allergy/AdvReac Type Severity Reaction Status Date / Time codeine (CODEINE) Allergy Unknown Verified 06/04/23 14:13 Penicillins (PENICILLINS) Allergy Unknown Verified 06/04/23 14:13 sulfamethoxazole (From Allergy Unknown Verified 06/04/23 14:13 Bactrim) trimethoprim (From Bactrim) Allergy Unknown Verified 06/04/23 14:13 [facility] Disclaimer: The information contained in this section may have been updated after the patient was seen, as this information can be updated by other users. Social History Smoking Status: Never smoker alcohol intake: never substance use type: denies use current occupational status: retired Travel in the last 8 weeks?: None household members: none housing: apartment Have you lived/traveled outside [place] in past 30 days?: No Contact w/someone who lives/traveled outside [place] past 30 days?: No Exposure to someone with infectious disease in past 14 days?: No Do you have a fever (greater than 100.4 F or 38 C)?: No Have you tested positive for COVID-19?: No Exposed to someone with COVID-19 in past 14 days?: No Do you have a sore throat?: No Do you have a cough?: No Do you have any weakness?: No Do you have any diarrhea?: No Are you experiencing any unusual bleeding?: No Do you have any muscle aches/pain?: No Do you have any abdominal pain?: No Are you experiencing loss of taste or smell?: No Other Medical History Have you received the Flu Vaccine for this season: Yes Have you received the Pneumonia Vaccine: Yes ROS Obtained: Yes unobtainable due to mental condition Physical Exam General General appearance: alert and in no apparent distress Head Head exam: normocephalic and other (Small occipital hematoma, no laceration) Eye Eye exam: Present normal appearance, PERRL and EOMI ENT ENT exam: Present normal oropharynx and normal external ear exam Neck Neck exam: Present normal inspection and full ROM Chest Chest inspection: Present normal inspection and symmetric chest wall rise; Absent tenderness Respiratory Respiratory exam: Present normal lung sounds bilaterally; Absent respiratory distress Cardiovascular Cardiovascular exam: Present regular rate and normal rhythm Abdominal Exam Abdominal exam: Present soft; Absent distention, tenderness or guarding Extremities Exam Extremities exam: Present normal inspection and tenderness (Mild tenderness palpation of the bilateral knees); Absent edema or joint swelling Back Exam Back exam: Present normal inspection; Absent tenderness Neurological Exam Neurological exam: Present alert and other (Only partially oriented, interactive, at baseline per nursing facility); Absent motor sensory deficit Psychiatric Psychiatric exam: Present normal affect and normal mood Skin Skin exam: Present warm, dry and normal color Lymphatic Lymphatic Findings: no adenopathy Medical Decision Making Medical Records Medical records reviewed: Yes I reviewed the patient's medical records. Screening: Per USPSTF and CDC recommendations, given the prevalence of disease in our region, it is our hospital?s policy to screen for HIV and viral Hepatitis for all patients aged 18 and over and those with ongoing risk factors. Jakob Inquiry Pt receiving controlled substance: No Jakob was queried for this patient: No Vital Signs: 01/30/25 00:30 01/30/25 01:01 01/30/25 02:36 Temperature 98.9 F 98.8 F Temperature Source Oral Oral Pulse Rate 57 L 58 L Pulse Rate [Radial] 61 Respiratory Rate 18 17 Blood Pressure 183/76 H 165/75 H Blood Pressure [Right Arm] 158/81 H Blood Pressure Mean [Right Arm] 106 Blood Pressure Source Automatic Cuff Blood Pressure Position Sitting Blood Pressure Position [Right Arm] Sitting 02 Sat by Pulse Oximetry 94 L 94 L Oxygen Delivery Method Room Air Room Air Lab Data Lab results reviewed: Yes I reviewed the patient's lab results. Lab Results 01/30/25 01:20: WBC 8.4, RBC 4.24, Hgb 13.5, Hct 41.4, MCV 97.6, MCH 31.8 H, MCHC 32.6, RDW 13.0, Plt Count 219, MPV 10.7 H, Neut % (Auto) 59.9, Lymph % (Auto) 26.7, Humphreys % (Auto) 9.8 H, Eos % (Auto) 2.5, Baso % (Auto) 0.5, Neut # (Auto) 5.0, Lymph # (Auto) 2.2, Humphreys # (Auto) 0.8, Eos # (Auto) 0.2, Baso # (Auto) 0.0, PT 10.7, INR 0.96, Sodium 139, Potassium 4.0, Chloride 105, Carbon Dioxide 31 H, Anion Gap 7.0, BUN 13, Creatinine 0.90, Estimated Creat Clear 33, Estimated GFR 59, Est GFR ( Amer) 71, Glucose 97, Calcium 10.1, Total Bilirubin 0.8, AST 28, ALT 9 L, Alkaline Phosphatase 99, Total Protein 7.7, Albumin 4.2, Globulin 3.5 H, Albumin/Globulin Ratio 1.2 01/30/25 01:20 01/30/25 01:20 Orders (Tests/Meds): ORDERS Category Date Time Status CT cervical spine wo con Stat Cat Scan 01/30/25 00:[address] head/brain wo con Stat Cat Scan 01/30/25 00:29 Completed CXR --portable [XR chest portable] Stat Exams 01/30/25 00:29 Completed Knee XR left 3 views [XR knee LT 3V] Stat Exams 01/30/25 00:30 Completed Knee XR right 3 views [XR knee RT 3V] Stat Exams 01/30/25 00:30 Completed Pelvis XR 1-2 views [XR pelvis 1-2V] Stat Exams 01/30/25 00:29 Completed CBC w/Auto Diff [Complete Blood Count Auto Diff] Stat Lab 01/30/25 01:20 Completed CMP [Comprehensive Metabolic Panel] Stat Lab 01/30/25 01:20 Completed INR [Prothrombin Time INR] Stat Lab 01/30/25 01:20 Completed Medical Decision Narrative: 89-year-old female with history of dementia, not on blood thinners, presents for unwitnessed fall from standing.. History was obtained via interactive discussion with patient, EMS, chart review. On arrival, patient is afebrile, hemodynamically stable, satting appropriately on room air, alert and interactive but not oriented, at baseline mental status per nursing facility, moving all extremities spontaneously. Full physical exam performed and significant for occipital scalp hematoma without laceration, mild tenderness to the bilateral knees Differential includes but is not limited to intracranial trauma intrathoracic trauma intra-abdominal trauma spine trauma extremity trauma. Workup initiated including CBC, CMP, INR, CT head, CT C-spine, chest x-ray pelvis x-ray radiographs of bilateral knees. On re-evaluation, patient [remains afebrile, HD stable.] Laboratory workup independently interpreted by me and significant for no significant leukocytosis or anemia, no significant electrolyte derangement.. Imaging independently interpreted by me and significant for no evidence of acute traumatic injury on radiographs and x-rays. See radiology read for full review of final results. Given patient history, exam and workup, patient's presentation most likely represents fall without significant injury. Interact discussion was had with patient and her caregiver. Patient was discharged stable condition back to nursing facility.. Procedures Risk/Benefits of Procedure(s) Were Explained: Yes Critical Care Critical Care Time Critical Care Time: No
[2025-01-30 01:01] VITALS: BP 183/76; PULSE 57; O2SAT 94
--- NOTE | 2025-01-30 01:25 | PC.NURSE ---
Pt taken to radiology at this time per radiology orderly
--- NOTE | 2025-01-30 01:26 | PC.NURSE ---
PT to CT by WC at this time
--- NOTE | 2025-01-30 01:54 | PC.NURSE ---
pt returned from radiology without incident.
[2025-01-30 02:01] LABS: Alanine Aminotransferase 9 U/L (12-78); Albumin Level 4.2 g/dl (3.5-5.0); Albumin/Globulin Ratio 1.2 (1.1-1.8); Alkaline Phosphatase 99 U/L (38-126); Aspartate Amino Transferase 28 U/L (14-36); Bilirubin,Total 0.8 mg/dl (0.2-1.3); Blood Urea Nitrogen 13 mg/dl (7-17); Calcium 10.1 mg/dl (8.4-10.2); Carbon Dioxide 31 mmol/L (22.0-30.0); Chloride 105 mmol/L (98-107); Creatinine Clearance Estimated 33 mL/min (50-200); Estimated Glomerular Filt Rate 59 ml/min (>60); GFR (African American) 71 ML/MIN (>60); Globulin 3.5 g/dL (1.3-3.2); Glucose 97 mg/dl (74-100); Sodium 139 mmol/L (136-145); Total Protein,Serum 7.7 g/dl (6.3-8.2)
[2025-01-30 02:26] LABS: Basophils % 0.5 % (0.1-2.0); Eosinophils # 0.2 Kmm3 (0.0-0.4); Eosinophils % 2.5 % (0.1-12.0); Hematocrit 41.4 % (37.0-47.0); Hemoglobin 13.5 g/dL (12.2-16.2); Immature Granulocytes # 0.05 10^3uL; Immature Granulocytes % 0.6 %; Lymphocytes # 2.2 K/mm3 (0.7-4.5); Lymphocytes % 26.7 % (10-50); Mean Corpuscular HGB Conc 32.6 g/dL (31.8-35.4); Mean Corpuscular Hemoglobin 31.8 pg (27.0-31.2); Mean Corpuscular Volume 97.6 fl (81-99); Mean Platelet Volume 10.7 fl (7.4-10.4); Monocytes # 0.8 K/mm3 (0.1-1.0); Monocytes % 9.8 % (1.7-9.3); Neutrophils % 59.9 % (37.0-80.0); Nucleated Red Blood Cells # 0 10^3/uL; Nucleated Red Blood Cells % 0 %; Platelet Count 219 K/mm3 (142-424); Red Blood Count 4.24 M/mm3 (4.20-5.40); Red Cell Distribution Width-SD 46.4 fL; White Blood Count 8.4 K/mm3 (4.8-10.8)
[2025-01-30 02:33] LABS: INR 0.96 (0.9-1.1); Prothrombin Time 10.7 seconds (10.1-12.5)
[2025-01-30 02:36] VITALS: BP 165/75; PULSE 58; RESP 17; TEMP 37.1; O2SAT 94
== END 2025-01-30 02:38 ==
PROVIDERS: Emergency Provider Emergency Medicine; PCP Internal Medicine Adolescent Medicine
DX: M25.561 Pain in right knee (principal); M25.562 Pain in left knee; W19.XXXA Unspecified fall, initial encounter
CPT/HCPCS: 70450; 71045; 72125; 72170; 73562; 80053; 85025; 85610; 99285

== ENCOUNTER 2025-02-11 21:43 | Emergency (ER) | payer MEDICARE, SELFPAY ==
--- NOTE | 2025-02-11 21:46 | CT_ITS ---
PROCEDURE INFORMATION: Exam: CT Head Without Contrast Exam date and time: 02/11/2025 10:03 PM Age: 89 years old Clinical indication: Injury or trauma; Fall; Blunt trauma (contusions or hematomas) TECHNIQUE: Imaging protocol: Computed tomography of the head without contrast. Radiation optimization: All CT scans at this facility use at least one of these dose optimization techniques: automated exposure control; mA and/or kV adjustment per patient size (includes targeted exams where dose is matched to clinical indication); or iterative reconstruction. COMPARISON: CT HEAD/BRAIN WO CON 01/30/2025 1:45 AM FINDINGS: Brain: Significant generalized cerebral atrophy and chronic white matter changes appear similar to previous. No intracranial mass, hemorrhage or evidence of acute ischemia. Cerebral ventricles: No ventriculomegaly. Paranasal sinuses: Diffuse mucosal thickening of the left sphenoid sinus locule. Paranasal sinuses are otherwise clear. Mastoid air cells: Visualized mastoid air cells are well aerated. Bones: Unremarkable. No acute fracture. Soft tissues: Moderate-sized right posterior scalp hematoma. IMPRESSION: 1. No acute intracranial abnormality. Right posterior scalp hematoma. 2. Chronic left sphenoid sinusitis
[2025-02-11 21:48] VITALS: BP 112/66; PULSE 108; RESP 17; TEMP 36.8; O2SAT 97; BMI 18.8
--- NOTE | 2025-02-11 21:53 | CT_ITS ---
PROCEDURE INFORMATION: Exam: CT Cervical Spine Without Contrast Exam date and time: 02/11/2025 10:06 PM Age: 89 years old Clinical indication: Injury or trauma; Fall; Blunt trauma; Additional info: Trauma, critical injury suspected TECHNIQUE: Imaging protocol: Computed tomography of the cervical spine without contrast. Radiation optimization: All CT scans at this facility use at least one of these dose optimization techniques: automated exposure control; mA and/or kV adjustment per patient size (includes targeted exams where dose is matched to clinical indication); or iterative reconstruction. COMPARISON: CT CERVICAL SPINE WO CON 01/30/2025 1:48 AM FINDINGS: Bones: Moderate cervical kyphosis. Moderate to severe multilevel disc space narrowing with disc bulge and uncovertebral spurring throughout the cervical spine. Grade 1 anterolisthesis of C2 and C3. Moderate degenerative changes of the atlantodental joint. No acute fracture. Lungs: Lung apices are normal. Vasculature: Moderate bilateral carotid artery calcifications. Soft tissues: Unremarkable. IMPRESSION: No acute abnormality. Degenerative changes as noted.
--- NOTE | 2025-02-11 21:53 | CT_ITS ---
PROCEDURE INFORMATION: Exam: CT Pelvis Without Contrast, Skeleton Exam date and time: 02/11/2025 10:34 PM Age: 89 years old Clinical indication: Injury or trauma; Fall; Blunt trauma (contusions or hematomas); Does not apply; Pelvic region; Additional info: Trauma, critical injury suspected TECHNIQUE: Imaging protocol: Computed tomography of the pelvis without contrast. Exam focused on the skeleton. Radiation optimization: All CT scans at this facility use at least one of these dose optimization techniques: automated exposure control; mA and/or kV adjustment per patient size (includes targeted exams where dose is matched to clinical indication); or iterative reconstruction. COMPARISON: CT ABDOMEN PELVIS WO CON 03/12/2024 3:22 AM FINDINGS: Vasculature: Dense atherosclerotic calcification of the distal aorta and iliac arteries. No aneurysm. Uterus is absent. No adnexal abnormality. Bones/joints: Partially visualized lumbar scoliosis. Moderate degenerative disc changes in the lower lumbar spine. Old, healed right pubic rami fractures. No acute fractures. Soft tissues: Unremarkable. IMPRESSION: No acute abnormality. Chronic findings as noted
--- NOTE | 2025-02-11 21:53 | CT_ITS ---
PROCEDURE INFORMATION: Exam: CT Lumbar Spine Without Contrast Exam date and time: 02/11/2025 10:31 PM Age: 89 years old Clinical indication: Injury or trauma; Fall; Blunt trauma (contusions or hematomas); Additional info: Trauma, critical injury suspected TECHNIQUE: Imaging protocol: Computed tomography of the lumbar spine without contrast. Radiation optimization: All CT scans at this facility use at least one of these dose optimization techniques: automated exposure control; mA and/or kV adjustment per patient size (includes targeted exams where dose is matched to clinical indication); or iterative reconstruction. COMPARISON: CT LUMBAR SPINE WO CON 01/15/2025 8:03 PM FINDINGS: Bones/joints: Moderate levoscoliosis of the upper lumbar spine. No acute vertebral body compression or fracture. Moderate multilevel degenerative disc changes throughout the lumbar spine. Vasculature: Dense atherosclerotic calcification throughout the aorta and iliac arteries. No aneurysm. Soft tissues: Unremarkable. IMPRESSION: No acute abnormality. Chronic findings as noted.
--- NOTE | 2025-02-11 21:53 | CT_ITS ---
PROCEDURE INFORMATION: Exam: CT Thoracic Spine Without Contrast Exam date and time: 02/11/2025 10:09 PM Age: 89 years old Clinical indication: Injury or trauma; Fall; Blunt trauma (contusions or hematomas); Additional info: Trauma, critical injury suspected TECHNIQUE: Imaging protocol: Computed tomography of the thoracic spine without contrast. Radiation optimization: All CT scans at this facility use at least one of these dose optimization techniques: automated exposure control; mA and/or kV adjustment per patient size (includes targeted exams where dose is matched to clinical indication); or iterative reconstruction. COMPARISON: CT THORACIC SPINE WO CON 01/15/2025 8:01 PM FINDINGS: Bones/joints: There is moderate levoscoliosis of the thoracolumbar spine. Stable chronic appearing moderate compression of T11. Moderate multilevel degenerative disc changes throughout the lower thoracic and upper lumbar spine. No acute fracture. Moderate focal consolidative atelectasis in the right lung base. Soft tissues: Unremarkable. Vasculature: Diffuse atherosclerotic calcification of the visualized portion of the aorta. IMPRESSION: 1. No acute fracture. Degenerative changes of the thoracic spine as noted 2. Focal consolidative atelectasis in the right lung base may represent bland atelectasis or pneumonia
--- NOTE | 2025-02-11 21:54 | ED_ITS ---
<Statement entered by Jaron Bustos MD - 02/11/25 23:21> I was consulted by the FELIBERTO, and we discussed the complexity of the problems being addressed. I approved the treatment and management plan for this patient's care in the emergency department, thus performing a substantive portion of the medical decision making. Jaron Bustos MD, RADHA, FACEP Discharge Plan Disposition Patient Disposition: Home, Self-Care Prescriptions Prescriptions: No Action isosorbide dinitrate 10 MG tablet 10 mg PO BID buspirone 5 MG tablet 5 mg PO BID sennosides 8.6 MG tablet 8.6 mg PO DAILY polyethylene glycol 3350 17 GM powder in packet 17 g PO DAILY cetirizine 5 MG tablet 5 mg PO DAILY acetaminophen 500 MG tablet 500 mg PO Q4HP PRN (Reason: pain or fever) tamsulosin 0.4 MG capsule 0.4 mg PO DAILY levothyroxine 50 MCG tablet 50 mcg PO DAILY paroxetine HCl 20 MG tablet 20 mg PO DAILY metoprolol tartrate 50 MG tablet 50 mg PO BID cranberry fruit 400 MG capsule 400 mg PO DAILY docusate sodium 100 MG capsule 100 mg PO DAILY montelukast 10 MG tablet 10 mg PO DAILY albuterol sulfate 6.7 GM HFA aerosol inhaler 6.7 g IH Q4HP PRN (Reason: copd) lisinopril 40 MG tablet 40 mg PO DAILY mirtazapine 7.5 MG tablet 7.5 mg PO DAILY omeprazole 20 MG tablet,delayed release (DR/EC) 20 mg PO DAILY PNV no.95-ferrous fumarate-FA 1 EACH tablet 2 each PO Q4HP PRN (Reason: copd) fluticasone furoate-vilanterol 1 EACH blister with device 1 inh IH DAILY Referrals Follow up/Referrals: Meño Tian MD [Primary Care Provider, Internal Medicine] - See instructions Activity Restrictions/Add. Instructions Additional Instructions/Restrictions: No evidence of acute traumatic injuries on trauma scans. No abnormalities noted on basic labs. Clinical Impressions Clinical Impression: Fall, Diffuse pain, Scalp hematoma, Dementia Print Language Print Language: Welsh Discharge ED Provider: Mac Rodriguez General Adult HPI <Lou Barboza (ED), PHYSICAL EDUCATION AIDE - Last Filed: 02/11/25 22:01> General Chief complaint: Fall Stated complaint: Fall Time Seen by Provider: 02/11/25 21:45 Mode of Arrival: Ambulatory Source of Information: Patient Description of Symptoms (Recalled from ER Triage Doc. by RN): pt presents to the Ed d/t complaints of fall at [facility]. pt is History of Present Illness HPI narrative: 89-year-old female presents via EMS after a fall from standing position. She was not using her walker and fell backwards hitting the back of her head. Patient is altered. I believe this is her baseline. Patient is not alert and oriented. She is very cooperative but just not oriented. Related Data Home Medications ?Medication ?Instructions ?Recorded ?Confirmed acetaminophen 500 mg tablet 500 mg PO Q4HP PRN pain or fever 02/15/22 06/04/23 albuterol sulfate 90 mcg/actuation 6.7 g inhalation Q4 HP PRN copd 02/15/22 06/04/23 aerosol inhaler buspirone 5 mg tablet 5 mg PO BID anxiety disorder 02/15/22 06/04/23 cetirizine 5 mg tablet 5 mg PO DAILY allergies 05/0106/04/23 cranberry fruit 400 mg capsule 400 mg PO DAILY Supplem ent 02/15/22 06/04/23 docusate sodium 100 mg capsule 100 mg PO DAILY constip ation 02/15/22 06/04/23 fluticasone furoate 100 1 inh inhalation DAILY COPD 02/15/22 06/04/23 mcg-vilanterol 25 mcg/dose inhalation powder isosorbide dinitrate 10 mg tablet 10 mg PO BID htn 05/0106/04/23 levothyroxine 50 mcg tablet 50 mcg PO DAILY hypothyroi dism 02/15/22 06/04/23 lisinopril 40 mg tablet 40 mg PO DAILY htn 02/15/22 06/04/23 metoprolol tartrate 50 mg tablet 50 mg PO BID Hyperten olu 02/15/22 06/04/23 mirtazapine 7.5 mg tablet 7.5 mg PO DAILY insomnia and 02/15/22 06/04/23 appetite montelukast 10 mg tablet 10 mg PO DAILY allergic rhin itis 02/15/22 06/04/23 omeprazole 20 mg tablet,delayed 20 mg PO DAILY GERD 06/04/23 release paroxetine HCl 20 mg tablet 20 mg PO DAILY major depre ssive 02/15/22 06/04/23 disorder polyethylene glycol 3350 17 gram 17 g PO DAILY constip ation 02/15/22 06/04/23 oral powder packet vit no.95-ferrous 2 each PO Q4HP PRN copd 05/0106/04/23 fumarate 28 mg-folic acid 800 mcg tablet sennosides 8.6 mg tablet 8.6 mg PO DAILY constipation 02/15/22 06/04/23 tamsulosin 0.4 mg capsule 0.4 mg PO DAILY neurogenical 02/15/22 06/04/23 bladder Allergies Allergy/AdvReac Type Severity Reaction Status Date / Time codeine (CODEINE) Allergy Unknown Verified 06/04/23 14:13 Penicillins (PENICILLINS) Allergy Unknown Verified 06/04/23 14:13 sulfamethoxazole (From Allergy Unknown Verified 06/04/23 14:13 Bactrim) trimethoprim (From Bactrim) Allergy Unknown Verified 06/04/23 14:13 [facility] <Lou Barboza (ED), PHYSICAL EDUCATION AIDE - Last Filed: 02/11/25 22:01> [facility] Disclaimer: The information contained in this section may have been updated after the patient was seen, as this information can be updated by other users. Social History Smoking Status: Never smoker alcohol intake: never substance use type: denies use current occupational status: retired Travel in the last 8 weeks?: None household members: none housing: apartment Have you lived/traveled outside US in past 30 days?: No Contact w/someone who lives/traveled outside US past 30 days?: No Exposure to someone with infectious disease in past 14 days?: No Do you have a fever (greater than 100.4 F or 38 C)?: No Have you tested positive for COVID-19?: No Exposed to someone with COVID-19 in past 14 days?: No Do you have a sore throat?: No Do you have a cough?: No Do you have any weakness?: No Do you have any diarrhea?: No Are you experiencing any unusual bleeding?: No Do you have any muscle aches/pain?: No Do you have any abdominal pain?: No Are you experiencing loss of taste or smell?: No Other Medical History Have you received the Flu Vaccine for this season: Yes Have you received the Pneumonia Vaccine: Yes <Lou Pangtanner (ED), PHYSICAL EDUCATION AIDE - Last Filed: 02/11/25 22:01> ROS Obtained: Yes Systems reviewed as appropriate & no additional complaints except as documented Constitutional Constitutional: Reports as per HPI Physical Exam <Lou Kiltanner (ED), PHYSICAL EDUCATION AIDE - Last Filed: 02/11/25 22:01> General General appearance: in no apparent distress Head Head exam: other (Lump on the back of her head) Eye Eye exam: Present PERRL and EOMI ENT ENT exam: Present normal oropharynx and mucous membranes moist Neck Neck exam: Present trachea midline Respiratory Respiratory exam: Present normal lung sounds bilaterally Cardiovascular Cardiovascular exam: Present normal rhythm, tachycardia, normal heart sounds, +S1 and +S2 Abdominal Exam Abdominal exam: Present soft and normal bowel sounds Extremities Exam Extremities exam: Present normal inspection, full ROM and normal capillary refill Back Exam Back exam: Present normal inspection Neurological Exam Neurological exam: Present alert and normal gait Skin Skin exam: Present warm, dry and intact Medical Decision Making <Lou Kiltanner (ED), PHYSICAL EDUCATION AIDE - Last Filed: 02/11/25 22:01> Medical Records Screening: Per USPSTF and CDC recommendations, given the prevalence of disease in our region, it is our hospital?s policy to screen for HIV and viral Hepatitis for all patients aged 18 and over and those with ongoing risk factors. Jakob Inquiry Pt receiving controlled substance: No Jakob was queried for this patient: No Vital Signs: 02/11/25 21:48 02/11/25 22:48 Temperature 98.2 F Temperature Source Oral Pulse Rate 60 Pulse Rate [Right Radial] 108 H Respiratory Rate 17 16 Blood Pressure [Right Arm] 112/66 Blood Pressure Mean [Right Arm] 81 Blood Pressure Position [Right Arm] Supine 02 Sat by Pulse Oximetry 97 96 Oxygen Delivery Method Room Air Lab Data Lab Results 02/11/25 22:28: WBC 8.3, RBC 4.06 L, Hgb 12.8, Hct 39.5, MCV 97.3, MCH 31.5 H, MCHC 32.4, RDW 13.0, Plt Count 223, MPV 10.4, Neut % (Auto) 59.6, Lymph % (Auto) 26.8, York % (Auto) 9.3, Eos % (Auto) 3.0, Baso % (Auto) 0.8, Neut # (Auto) 4.9, Lymph # (Auto) 2.2, [place] # (Auto) 0.8, Eos # (Auto) 0.3, Baso # (Auto) 0.1, PT 10.9, INR 0.98, Sodium 136, Potassium 4.0, Chloride 99, Carbon Dioxide 28, Anion Gap 13.0, BUN 14, Creatinine 0.90, Estimated Creat Clear 30, Estimated GFR 59, Est GFR ( Amer) 71, Glucose 108 H, Calcium 9.3, Total Bilirubin 0.6, AST 33, ALT 19, Alkaline Phosphatase 81, Troponin I 0.02, Total Protein 7.4, Albumin 4.2, Globulin 3.2, Albumin/Globulin Ratio 1.3 02/11/25 22:28 02/11/25 22:28 Orders (Tests/Meds): ED MEDICATIONS Generic Name Dose Route Start Last Admin Trade Name Freq PRN Reason Stop Dose Admin Sodium Chloride 10 ml 02/11/25 22:04 Sodium Chloride 0.9% 10ml Flush Syringe IV 03/13/25 22:03 NEEDED PRN Maintain IV Site Discontinued Medications Generic Name Dose Route Start Last Admin Trade Name Freq PRN Reason Stop Dose Admin Iopamidol 75 ml 02/11/25 22:43 02/11/25 22:44 Iopamidol-370 (76%);100ml Bottle IV 02/11/25 22:44 75 ml ONCE ONE Administration Sodium Chloride 10 ml 02/11/25 22:43 02/11/25 22:43 Sodium Chloride 0.9% 10ml Syr (Rad Only) IV 02/11/25 22:44 10 ml ONCE ONE Administration ORDERS Category Date Time Status CT abdomen pelvis w con Stat Cat Scan 02/11/25 22:[address] bony pelvis Stat Cat Scan 02/11/25 21:[address] cervical spine wo con Stat Cat Scan 02/11/25 21:[address] chest w con Stat Cat Scan 02/11/25 22:[address] head/brain wo con Stat Cat Scan 02/11/25 21:[address] lumbar spine wo con Stat Cat Scan 02/11/25 21:[address] thoracic spine wo con Stat Cat Scan 02/11/25 21:53 Completed Complete Blood Count Auto Diff Stat Lab 02/11/25 22:28 Completed Comprehensive Metabolic Panel Stat Lab 02/11/25 22:28 Completed Prothrombin Time INR Stat Lab 02/11/25 22:28 Completed Troponin I Q3H Lab 02/12/25 01:15 Ordered Troponin I Q3H Lab 02/12/25 04:15 Ordered Troponin I Stat Lab 02/11/25 22:28 Completed Urinalysis and Microscopic Stat Lab 02/11/25 22:06 Ordered Medical Decision Narrative: patient is a 89-year-old female presenting to the emergency department for evaluation of fall from standing position from [facility]. Patient is hemodynamically stable and nontoxic-appearing upon arrival, afebrile. Differential diagnosis includes fractures versus sprain strains from fall. Workup will be conducted with specific imaging. Initial workup will be CT scans of head, spine and pelvis. I discussed this with Dr. Bustos. I will be leaving this patient with Dr. Bustos as due to shift change. Patient is stable at this time. <Jaron Bustos MD - Last Filed: 02/11/25 23:31> Vital Signs: 02/11/25 21:48 02/11/25 22:48 Temperature 98.2 F Temperature Source Oral Pulse Rate 60 Pulse Rate [Right Radial] 108 H Respiratory Rate 17 16 Blood Pressure [Right Arm] 112/66 Blood Pressure Mean [Right Arm] 81 Blood Pressure Position [Right Arm] Supine 02 Sat by Pulse Oximetry 97 96 Oxygen Delivery Method Room Air Lab Data Lab Results 02/11/25 22:28: WBC 8.3, RBC 4.06 L, Hgb 12.8, Hct 39.5, MCV 97.3, MCH 31.5 H, MCHC 32.4, RDW 13.0, Plt Count 223, MPV 10.4, Neut % (Auto) 59.6, Lymph % (Auto) 26.8, York % (Auto) 9.3, Eos % (Auto) 3.0, Baso % (Auto) 0.8, Neut # (Auto) 4.9, Lymph # (Auto) 2.2, [place] # (Auto) 0.8, Eos # (Auto) 0.3, Baso # (Auto) 0.1, PT 10.9, INR 0.98, Sodium 136, Potassium 4.0, Chloride 99, Carbon Dioxide 28, Anion Gap 13.0, BUN 14, Creatinine 0.90, Estimated Creat Clear 30, Estimated GFR 59, Est GFR ( Amer) 71, Glucose 108 H, Calcium 9.3, Total Bilirubin 0.6, AST 33, ALT 19, Alkaline Phosphatase 81, Troponin I 0.02, Total Protein 7.4, Albumin 4.2, Globulin 3.2, Albumin/Globulin Ratio 1.3 Orders (Tests/Meds): ED MEDICATIONS Generic Name Dose Route Start Last Admin Trade Name Freq PRN Reason Stop Dose Admin Sodium Chloride 10 ml 02/11/25 22:04 Sodium Chloride 0.9% 10ml Flush Syringe IV 03/13/25 22:03 NEEDED PRN Maintain IV Site Discontinued Medications Generic Name Dose Route Start Last Admin Trade Name Freq PRN Reason Stop Dose Admin Iopamidol 75 ml 02/11/25 22:43 02/11/25 22:44 Iopamidol-370 (76%);100ml Bottle IV 02/11/25 22:44 75 ml ONCE ONE Administration Sodium Chloride 10 ml 02/11/25 22:43 02/11/25 22:43 Sodium Chloride 0.9% 10ml Syr (Rad Only) IV 02/11/25 22:44 10 ml ONCE ONE Administration ORDERS Category Date Time Status CT abdomen pelvis w con Stat Cat Scan 02/11/25 22:[address] bony pelvis Stat Cat Scan 02/11/25 21:[address] cervical spine wo con Stat Cat Scan 02/11/25 21:[address] chest w con Stat Cat Scan 02/11/25 22:[address] head/brain wo con Stat Cat Scan 02/11/25 21:[address] lumbar spine wo con Stat Cat Scan 02/11/25 21:[address] thoracic spine wo con Stat Cat Scan 02/11/25 21:53 Completed Complete Blood Count Auto Diff Stat Lab 02/11/25 22:28 Completed Comprehensive Metabolic Panel Stat Lab 02/11/25 22:28 Completed Prothrombin Time INR Stat Lab 02/11/25 22:28 Completed Troponin I Q3H Lab 02/12/25 01:15 Ordered Troponin I Q3H Lab 02/12/25 04:15 Ordered Troponin I Stat Lab 02/11/25 22:28 Completed Urinalysis and Microscopic Stat Lab 02/11/25 22:06 Ordered Medical Decision Narrative: patient is a 89-year-old female presenting to the emergency department for evaluation of fall from standing position from [facility]. Patient is hemodynamically stable and nontoxic-appearing upon arrival, afebrile. Differential diagnosis includes fractures versus sprain strains from fall. Workup will be conducted with specific imaging. Initial workup will be CT scans of head, spine and pelvis. I discussed this with Dr. Bustos. I will be leaving this patient with Dr. Bustos as due to shift change. Patient is stable at this time. CT scans pending and care was transitioned to Dr. Rodriguez at 11:30 PM. <Mac Rodriguez MD - Last Filed: 02/12/25 00:21> Vital Signs: 02/11/25 21:48 02/11/25 22:48 Temperature 98.2 F Temperature Source Oral Pulse Rate 60 Pulse Rate [Right Radial] 108 H Respiratory Rate 17 16 Blood Pressure [Right Arm] 112/66 Blood Pressure Mean [Right Arm] 81 Blood Pressure Position [Right Arm] Supine 02 Sat by Pulse Oximetry 97 96 Oxygen Delivery Method Room Air Lab Data Lab Results 02/11/25 22:28: WBC 8.3, RBC 4.06 L, Hgb 12.8, Hct 39.5, MCV 97.3, MCH 31.5 H, MCHC 32.4, RDW 13.0, Plt Count 223, MPV 10.4, Neut % (Auto) 59.6, Lymph % (Auto) 26.8, York % (Auto) 9.3, Eos % (Auto) 3.0, Baso % (Auto) 0.8, Neut # (Auto) 4.9, Lymph # (Auto) 2.2, [place] # (Auto) 0.8, Eos # (Auto) 0.3, Baso # (Auto) 0.1, PT 10.9, INR 0.98, Sodium 136, Potassium 4.0, Chloride 99, Carbon Dioxide 28, Anion Gap 13.0, BUN 14, Creatinine 0.90, Estimated Creat Clear 30, Estimated GFR 59, Est GFR ( Amer) 71, Glucose 108 H, Calcium 9.3, Total Bilirubin 0.6, AST 33, ALT 19, Alkaline Phosphatase 81, Troponin I 0.02, Total Protein 7.4, Albumin 4.2, Globulin 3.2, Albumin/Globulin Ratio 1.3 Orders (Tests/Meds): ED MEDICATIONS Generic Name Dose Route Start Last Admin Trade Name Bertha PRN Reason Stop Dose Admin Sodium Chloride 10 ml 02/11/25 22:04 Sodium Chloride 0.9% 10ml Flush Syringe IV 03/13/25 22:03 NEEDED PRN Maintain IV Site Discontinued Medications Generic Name Dose Route Start Last Admin Trade Name Bertha PRN Reason Stop Dose Admin Iopamidol 75 ml 02/11/25 22:43 02/11/25 22:44 Iopamidol-370 (76%);100ml Bottle IV 02/11/25 22:44 75 ml ONCE ONE Administration Sodium Chloride 10 ml 02/11/25 22:43 02/11/25 22:43 Sodium Chloride 0.9% 10ml Syr (Rad Only) IV 02/11/25 22:44 10 ml ONCE ONE Administration ORDERS Category Date Time Status CT abdomen pelvis w con Stat Cat Scan 02/11/25 22:[address] bony pelvis Stat Cat Scan 02/11/25 21:[address] cervical spine wo con Stat Cat Scan 02/11/25 21:[address] chest w con Stat Cat Scan 02/11/25 22:[address] head/brain wo con Stat Cat Scan 02/11/25 21:[address] lumbar spine wo con Stat Cat Scan 02/11/25 21:[address] thoracic spine wo con Stat Cat Scan 02/11/25 21:53 Completed Complete Blood Count Auto Diff Stat Lab 02/11/25 22:28 Completed Comprehensive Metabolic Panel Stat Lab 02/11/25 22:28 Completed Prothrombin Time INR Stat Lab 02/11/25 22:28 Completed Troponin I Q3H Lab 02/12/25 01:15 Ordered Troponin I Q3H Lab 02/12/25 04:15 Ordered Troponin I Stat Lab 02/11/25 22:28 Completed Urinalysis and Microscopic Stat Lab 02/11/25 22:06 Ordered Medical Decision Narrative: patient is a 89-year-old female presenting to the emergency department for evaluation of fall from standing position from [facility]. Patient is hemodynamically stable and nontoxic-appearing upon arrival, afebrile. Differential diagnosis includes fractures versus sprain strains from fall. Workup will be conducted with specific imaging. Initial workup will be CT scans of head, spine and pelvis. I discussed this with Dr. Bustos. I will be leaving this patient with Dr. Bustos as due to shift change. Patient is stable at this time. CT scans pending and care was transitioned to Dr. Rodriguez at 11:30 PM. Jennifer DOHERTY: I assumed care of the patient at the time of handoff from the prior provider. On reassessment CT scans on my independent interpretation show no evidence of acute intracranial bleeding, spinal fracture, rib fracture or intra-abdominal trauma. Labs results were independently interpreted by me and significant for no significant anemia, no significant electrolyte derangement, normal renal function. Interactive discussion was had with patient's family. She was deemed appropriate for discharge and discharged in stable condition Critical Care <Lou Barboza (ED), PHYSICAL EDUCATION AIDE - Last Filed: 02/11/25 22:01> Critical Care Time Critical Care Time: No
--- NOTE | 2025-02-11 22:04 | CT_ITS ---
PROCEDURE INFORMATION: Exam: CT Chest With Contrast; Diagnostic Exam date and time: 02/11/2025 10:40 PM Age: 89 years old Clinical indication: Injury or trauma; Fall; Blunt trauma (contusions or hematomas) TECHNIQUE: Imaging protocol: Diagnostic computed tomography of the chest with contrast. Radiation optimization: All CT scans at this facility use at least one of these dose optimization techniques: automated exposure control; mA and/or kV adjustment per patient size (includes targeted exams where dose is matched to clinical indication); or iterative reconstruction. Contrast material: ISOVUE; Contrast volume: 75 ml; Contrast route: IV; COMPARISON: CT CHEST WO CON 03/12/2024 3:19 AM FINDINGS: Lungs: Moderate focal consolidative atelectasis in the right lung base. Mild left lower lobe atelectasis. Lungs are otherwise clear. Pleural spaces: Unremarkable. No pneumothorax. No pleural effusion. Heart: Moderate cardiomegaly. No significant pericardial fluid. Lymph nodes: Unremarkable. No enlarged lymph nodes. Vasculature: Moderate atherosclerotic calcification throughout the aorta. No evidence of aortic dissection or acute injury. Mild dilation of the ascending aorta measuring maximum diameter of 3.8 cm. Bones/joints: Moderate thoracolumbar scoliosis and multilevel degenerative changes. No acute vertebral body compression. No acute fracture. Soft tissues: Unremarkable. IMPRESSION: Focal consolidative atelectasis in the right lung this may represent bland atelectasis or pneumonia. Other chronic appearing findings as noted.
--- NOTE | 2025-02-11 22:04 | ECG_ITS ---
APPROVED REPORT Exam: Resting ECG HR:100 bpm ECG Measurements Heart Rate 100 AXES QRSd 85 QRS 100 QT 345 T -35 QTc 402 Conclusion ATRIAL FIBRILLATION WITH RAPID VENTRICULAR RESPONSE BORDERLINE RIGHT AXIS DEVIATION [QRS AXIS > 90] LOW QRS VOLTAGE IN EXTREMITY LEADS [QRS DEFLECTION < 0.5 mV IN LIMB LEADS] MINIMAL ST DEPRESSION [0.025+ mV ST DEPRESSION] ABNORMAL QRS-T ANGLE [QRS-T AXIS DIFFERENCE > 60] ABNORMAL ECG UNCONFIRMED REPORT Electronically signed by : Manuelito Bustos, 02/11/2025 23:34:27
--- NOTE | 2025-02-11 22:04 | CT_ITS ---
PROCEDURE INFORMATION: Exam: CT Abdomen And Pelvis With Contrast Exam date and time: 02/11/2025 10:40 PM Age: 89 years old Clinical indication: Injury or trauma; Fall; Blunt; Generalized TECHNIQUE: Imaging protocol: Computed tomography of the abdomen and pelvis with contrast. Radiation optimization: All CT scans at this facility use at least one of these dose optimization techniques: automated exposure control; mA and/or kV adjustment per patient size (includes targeted exams where dose is matched to clinical indication); or iterative reconstruction. Contrast material: ISOVUE; Contrast volume: 75 ml; Contrast route: IV; COMPARISON: CT BONY PELVIS 02/11/2025 10:34 PM FINDINGS: Liver: Normal. No mass. Gallbladder and biliary ducts: Normal. No calcified stones. No ductal dilation. Pancreas: Normal. No ductal dilation. Spleen: Normal. No splenomegaly. Adrenal glands: Normal. No mass. Kidneys and ureters: Normal. No hydronephrosis. Stomach and bowel: Unremarkable. No obstruction. No mucosal thickening. Appendix: No evidence of appendicitis. Intraperitoneal space: Unremarkable. No free air. No significant fluid collection. Vasculature: Moderate atherosclerotic calcification throughout the aorta and iliac arteries. No aneurysm or dissection. Lymph nodes: Unremarkable. No enlarged lymph nodes. Urinary bladder: Unremarkable as visualized. Reproductive: Uterus is absent. No adnexal abnormality. Bones/joints: Moderate lumbar scoliosis. Multilevel degenerative changes throughout the lower spine. Old, healed right pubic rami fractures. No acute fracture. Soft tissues: Unremarkable. IMPRESSION: No acute abnormality. Chronic findings as noted.
[2025-02-11 22:37] LABS: Hematocrit 39.5 % (37.0-47.0); Hemoglobin 12.8 g/dL (12.2-16.2); Immature Granulocytes % 0.5 %; Mean Corpuscular HGB Conc 32.4 g/dL (31.8-35.4); Mean Corpuscular Hemoglobin 31.5 pg (27.0-31.2); Mean Corpuscular Volume 97.3 fl (81-99); Nucleated Red Blood Cells % 0 %; Platelet Count 223 K/mm3 (142-424); Red Blood Count 4.06 M/mm3 (4.20-5.40); Red Cell Distribution Width-SD 46.3 fL; White Blood Count 8.3 K/mm3 (4.8-10.8)
[2025-02-11] MEDS: SODIUM CHLORIDE 0.9% 10ML SYR (RAD ONLY) 10 ML IV (22:43)
[2025-02-11] MEDS: IOPAMIDOL-370 (76%);100ML BOTTLE 75 ML IV (22:44)
[2025-02-11 22:48] VITALS: PULSE 60; RESP 16; O2SAT 96
[2025-02-11 22:51] LABS: Alanine Aminotransferase 19 U/L (12-78); Albumin Level 4.2 g/dl (3.5-5.0); Albumin/Globulin Ratio 1.3 (1.1-1.8); Alkaline Phosphatase 81 U/L (38-126); Anion Gap 13.0 mEq/L (5-15); Aspartate Amino Transferase 33 U/L (14-36); Bilirubin,Total 0.6 mg/dl (0.2-1.3); Blood Urea Nitrogen 14 mg/dl (7-17); Calcium 9.3 mg/dl (8.4-10.2); Carbon Dioxide 28 mmol/L (22.0-30.0); Chloride 99 mmol/L (98-107); Creatinine Clearance Estimated 30 mL/min (50-200); Creatinine,Serum 0.90 mg/dl (0.52-1.04); Estimated Glomerular Filt Rate 59 ml/min (>60); GFR (African American) 71 ML/MIN (>60); Globulin 3.2 g/dL (1.3-3.2); Glucose 108 mg/dl (74-100); Potassium 4.0 mmoL/L (3.5-5.1); Sodium 136 mmol/L (136-145); Total Protein,Serum 7.4 g/dl (6.3-8.2)
[2025-02-11 22:52] LABS: INR 0.98 (0.9-1.1); Prothrombin Time 10.9 seconds (10.1-12.5)
[2025-02-11 23:03] LABS: Troponin I 0.02 ng/ml (0.00-0.034)
--- NOTE | 2025-02-11 23:30 | ECG_ITS ---
APPROVED REPORT Exam: Resting ECG HR:56 bpm ECG Measurements Heart Rate 56 AXES DE 200 P 75 QRSd 166 QRS 50 QT 511 T 186 QTc 502 Conclusion SINUS BRADYCARDIA LEFT BUNDLE BRANCH BLOCK [120+ ms QRS DURATION, 80+ ms Q/S IN V1/V2, 85+ ms R IN I/aVL/V5/V6] ABNORMAL ECG UNCONFIRMED REPORT Electronically signed by : MALACHI ABEBE, 02/13/2025 04:58:24
[2025-02-12 00:30] VITALS: BP 157/79; PULSE 56; RESP 16; TEMP 36.4; O2SAT 98
[2025-02-12 00:50] VITALS: BP 157/79; PULSE 56; RESP 16; TEMP 36.4; O2SAT 98
== END 2025-02-12 00:52 | disposition home or self-care (01) ==
PROVIDERS: Nurse Practitioner; Emergency Provider Emergency Medicine; PCP Internal Medicine Adolescent Medicine
DX: S00.03XA Contusion of scalp, initial encounter (principal); F03.90 Unspecified dementia, unspecified severity, without behavioral disturbance, psychotic disturbance, mood disturbance, and anxiety; W18.30XA Fall on same level, unspecified, initial encounter
CPT/HCPCS: 70450; 71260; 72125; 72128; 72131; 72192; 74177; 80053; 84484; 85025; 85610; 93005; 99285; Q9967

== ENCOUNTER 2025-03-06 11:45 | Outpatient (CLI) | payer MEDICARE, SELFPAY ==
--- OUTSIDE RECORDS SUMMARY | 2025-03-02 05:10 | XMS_ITS | Continuity of Care Document ---
Author Organization [address] [place] [address] [address] [place] [address] Phone Care Team Providers Care Barrel Bander Name Role Phone Fanta Chery OD Unavailable Unavailable Allergies, Adverse Reactions, Alerts Substance [...] Ac tive paroxetine 20 mg tablet - Ac tive metoprolol succinate ER 100 mg tablet,extended release 24 hr - Active hydrochlorothiazide 25 mg tablet - Active Procedures Procedure Date COMPRE OPH EXAM EST PT 1/> Trim Dystrophic nail(s) DEBRIDE NAIL 1-5 COMPREHENSIVE HEARING TEST REMOVE IMPACTED EAR WAX Trim Dystrophic nail(s) DEBRIDE NAIL 1-5 Periodic Oral Evaluation Complete Series Of Radiographic Images F Trim dystrophic nail(s) in length, any n [...] CARE SUBSEQ Limited Oral Eval Prob Focused 21 PPE Limited Oral Eval Prob Focused 20 PPE Advance Directives Directive Yes / No Effective Date File Name No Information Encounters Encounter Description Practice Location Reason(s) For Visit Diagnoses Date Provider Providers Copied on Encounter [facility], [address] [place] [address], [place], [place], [id number], tel:[phone] [place] Blurry vision (chief complaint) Nonexudative age-related macular degeneration, bilateral, early dry stagePresence of intraocular lens 5 [place]. Referring Provider: Meño Tian. [address] [place] [address], [address] [place] [address], [place], [place], [id number], tel:[phone] [place] Nail dystrophyOnycho gryphosisOther specified peripheral vascular diseases 5 [place], [place]. [facility], [address] [place] [address], [place], [place], [id number], [place] tel:[phone] [place] Sensorineural hearing loss, bilateral 5 [place]. Referring Provider: Meño Tian. [address] [place] [address], [address] [place] [address], [place], [place], [id number], [place] tel:[phone] [place] ear care exam (chief complaint) Impacted cerumen, bilateral 5 [place]. Referring Provider: Meño Tian. [address] [address], [place], [place], [id number], [place] tel:[phone] [place] Nail dystrophyOnycho gryphosisOther specified peripheral vascular diseasesOther abnormalities of gait and mobility 5 [place], [place]. [address] [address], [place], [place], [id number], [place] tel:[phone] [place] No Information 5 [place], [place]. [address] [place] [address], [address] [place] [address], [place], [place], [id number], tel:[phone] [place] Encounter for dental examination and cleaning without abnormal findings 5 Ibrahima Dobson. [address] [place] [address], [address], [place], [place], [id number], [place]. tel:[phone] Referring Provider: Meño Tian. [address] [place] [address], [address] [place] [address], [place], [place], [id number], tel:[phone] [place] Other specified peripheral vascular diseasesNail dystrophyOnycho gryphosisCorns and callosities 5 [place]. SBSQ NF CARE LOW MDM [address] [place] [address], [address] [place], [place] [address], [place], [place], [id number], tel:[phone] [place] Nail dystrophyOnycho gryphosisOther specified peripheral vascular diseases 4 [place], [place]. [address] [place] [address] Of [place], [address] [place] [address], [place], [place], [id number], tel:[phone] [place] ear care exam (chief complaint) Impacted cerumen, bilateral Sep-0 4 [place], [place]. Referring Provider: Meño Tian. [address] [place] [address] Of [place], [address] [place], [place] [address], [place], [place], [id number], [place] tel:[phone] [place] Corns and callositiesOthe r specified peripheral vascular diseasesTinea unguiumNail dystrophy 4 Omi De La Cruz. [address] [facility], [address], [place], [address], [place]. [facility], [address] [place], [place] [address], [place], [place], [id number], [place] tel:[phone] [place] floaters (chief complaint) Vitreous degeneration, bilateral 4 Joaquin Hood. , [place]. Referring Provider: Meño Tian. [address] [place] [address], [address] [place] [address], [place], [place], [id number], [place] tel:[phone] [place] ear care exam (chief complaint) Impacted cerumen, bilateral 4 Bandar Moran. , [place]. Referring Provider: Meño Tian. [address] [place] [address] [place], [address] [place] [address], [place], [place], [id number], [place] tel:[phone] [place] Encounter for dental examination and cleaning without abnormal findings 4 Jamarcus Zavala. [address] [place] [address], [address], [place], [place], [id number], [place]. tel:[phone] Referring Provider: Meño Tian. [address] [place] [address], [address] [place] [address], [place], [place], [id number], tel:[phone] [place] Corns and callositiesTine a unguiumOther specified peripheral vascular diseases [address] [place] [address], [address], [place], [address], [place]. Referring Provider: Meño Tian. [address] [place] [address] [place], [address] [place], [place] [address], [place], [place], [id number], tel:[phone] [place] Corns and callositiesTine a unguiumOther specified peripheral vascular diseases [address] [place] [address], [address], [place], [address], [place]. Referring Provider: Meño Tian. [facility], [address] [place] [address], [place], [place], [id number], [place] tel:[phone] [place] No Information [address] [place] [address], [address], [place], [address], [place]. [address] [place] [address], [address] [place] [address], [place], [id number], [place] tel:[phone] [place] Sensorineural hearing loss, bilateral 4 [place]. Referring Provider: Meño Tian. [facility], [address] [place], [place] [address], [place], [place], [id number], [place] tel:[phone] [place] Tinea unguiumOther specified peripheral vascular diseases 3 Omi De La Cruz. [address] [place] [address], [address], [place], [address], [place]. [facility] [place], [address] [place], [place] [address], [place], [place], [id number], [place] tel:[phone] [place] Tinea unguiumCorns and callositiesOthe r specified peripheral vascular diseases 3 Omi De La Cruz. [address] [place] [address], [address], [place], [address], [place]. Referring Provider: Meño Tian. [facility], [address] [place], [place] [address], [place], [place], [id number], [place] tel:[phone] [place] Presbyopia 3 Gabe Dobson. [address] [place] [address], [address], [place], [address], [place]. [address] [place] [address], [address] [place], [place] [address], [place], [id number], [place] tel:[phone] [place] Dry eyes (chief complaint) Other chronic allergic conjunctivitisV itreous degeneration, bilateral 3 Gabe Dobson. [address] [place] [address], [address], [place], [address], [place]. Referring Provider: Meño Tian. [facility], [address] [place], [place] [address], [place], [place], [id number], [place] tel:[phone] [place] Tinea unguiumOther specified peripheral vascular diseasesCorns and callosities 3 Omi Galo [address] [facility], [address], [place], [address], [place]. Referring Provider: Meño Tian. NURSING FAC CARE SUBSEQ [facility], [address] [place] [address], [place], [place], [id number], [place] tel:[phone] [place] hearing loss (chief complaint) Sensorineural hearing loss, bilateral 3 Idania-Hard rosalio Padma. [address] [facility], [address], [place], [address], [place]. Referring Provider: Meño Tian. [facility] [place], [address] [place], [place] [address], [place], [place], [id number], [place] tel:[phone] [place] No Information 3 Jony Rubi. [address] [facility], [address], [place], [place], [id number], [place]. tel:[phone] [facility] [place], [address] [place], [place] [address], [place], [place], [id number], tel:[phone] [place] Encounter for dental examination and cleaning without abnormal findings 3 [place]. Referring Provider: Meño Tian. [facility] [place], [address] [place], [place] [address], [place], [place], [id number], [place] tel:[phone] [place] Tinea unguiumCorns and callositiesOthe r specified peripheral vascular diseases 2 Omi De La Cruz. [address] [facility], [address], [place], [address], . Referring Provider: Meño Barry. [facility] [place], [address] [place], [place] [address], [place], [place], [id number], [place] tel:[phone] [place] Sensorineural hearing loss, bilateral 2 [place]el [place], [place]. Referring Provider: Meño Tian. [facility] [place], [address] [place] [address], [place], [place], [id number], [place] tel:[phone] [place] Tinea unguiumOther specified peripheral vascular diseasesCorns and callosities Apr- 2 Omi De La Cruz. [address] [place] [address], [address], [place], [address], [place]. Referring Provider: Meño Tian. [address] [place] [address], [address] [facility] [address], [place], [place], [id number], [place] tel:[phone] [place] Blurry vision (chief complaint) Vitreous degeneration, bilateral Jan- 3 2 Kreinest Olya. [address] [facility], [address], [place], [address], [place]. Referring Provider: Meño Tian. [address] [place] [address], [address] [place], [place] [address], [place], [place], [id number], [place] tel:[phone] [place] No Information Jan- 2 Kreinest Olya. [address] [facility], [address], [place], [address], [place]. NURSING [facility] SUBSEQ [address] [place] [address], [address] [place], [place] [address], [place], [place], [id number], tel:[phone] [place] hearing loss (chief complaint) Unspecified hearing loss, bilateral 2 Idania-Hard rosalio Padma. [address] [facility], [address], [place], [address], [place]. Referring Provider: Meño Tian. [address] [place] [address], [address] [place], [place] [address], [place], [place], [id number], [place] tel:[phone] [facility] Encounter for dental exam and cleaning w/o abnormal findings Mar-0 2- 1 Ericka Joe Sravani. [address] [facility], [address], [place], [place], [id number], [place]. tel:[phone] Referring Provider: Meño Tian. [address] [place] [address], [address] [place], [place] [address], [place], [place], [id number], [place] tel:[phone] [facility] Intermediate Encounter for dental exam and cleaning w/o abnormal findings Sep-2 8 0 Ericka Joe Sravani. [address] [facility], [address], [place], [place], [id number], [place]. tel:[phone] Referring Provider: Meño Tian. Family History Family Member Type Diagnosis Age At Onset No Information Payers Payer name Insurance type Covered alliance party ID Estela maria(s) [employer] Medicare CI [id number] Medicaid [place] [id number] Social History Type Description Quantity Date Captured Comments Sex Female Smoking Status No Information Chief Complaint And Reason For Visit From encounter dated '03/02/2025 09:10'. Blurry vision (chief complaint). Description: The 89 year old patient presents for evaluation of Blurry vision in the right eye and left eye. Eyes just aren't working . Wearing another pts glasses so switched and pt happy. Denies eye pain Reason For Referral Reason For Referral No [...] Date Complaint History Of Prese nt Illness Blurry vision The 89 year old patient presents for evaluation of Blurry vision in the right eye and left eye. Eyes just aren't working . Wearing another pts glasses so switched and pt happy. Denies eye pain floaters The 88 year old patient presents [...] No Information Instructions Date Instruction Additional Infor lance Impression/Plan - Ea rly pigment changes. Blurry vision is from wearing the wrong specs- corrected and happier. Recheck 1 year Related to Nonexudative age-related macular degeneration, bilateral, early dry stage Impression/Plan - Im plants are clear and stable in both eyes. We will monitor at regular intervals Related to Presence of intraocular lens Follow up - Return i n 12-15 months for dilated fundus exam. This is a chronic st able problem, Will reassess and follow up in 2-3 months Related to Other specified peripheral vascular diseases All documented dystr ophic nails were reduced in length as needed to prevent pain and other symptoms. Patient tolerated procedure well. Related to Nail dystrophy All of the documente d thickened nails (which includes those nails 2 mm or more in thickness, and possible mycotic component to the nails) were debrided in both length and thickness using both a nail nipper and an electric rotary milk powder grinder in an atraumatic fashion; this was performed in an attempt to prevent pain and reduce risk of infection. Alcohol applied to the digits afterwards. Related to Onychogryphosis The patient's functi onal hearing appears to [...] a nail nipper and an electric rotary milk powder grinder in an atraumatic fashion; this was performed in an attempt to prevent pain and reduce risk of infection. Alcohol applied to the digits afterwards. Related to Onychogryphosis Discussed using comp ression stockings to assist in localize swelling and venous return, and the intermission coordinator benefits of using compression stockings. Reinforced the [...] localize swelling and venous return, and the shelter benefits of using compression stockings. Reinforced the [...] localize swelling and venous return, and the intermission coordinator benefits of using compression stockings. Reinforced the [...] fundus exam. Related to Vitreous degeneration, bilateral Follow up - Return i n 12-15 months for dilated fundus exam. Related to Vitreous degeneration, bilateral Impression/Plan - Vi treous floaters are present; however, no holes, breaks, or tears are evident. Related to Vitreous degeneration, bilateral Performed cerumen [...] and callosities follow up in 12-15 m onths or sooner if needed. Related to Sensorineural [...] loss, bilateral Assessments Type Assessment Date assessment Nonexudative age-rel ated macular degeneration, bilateral, early dry stage assessment Presence of intraocular lens Feb impression {oph_plan_.impression_dtls} impression {oph_plan_.impression_dtls} Patient Care Teams Name Effective Dates (start - stop) Status Members No Information
[2025-03-06 12:53] LABS: Hematocrit 39.9 % (37.0-47.0); Hemoglobin 12.8 g/dL (12.2-16.2); Immature Granulocytes % 0.3 %; Mean Corpuscular HGB Conc 32.1 g/dL (31.8-35.4); Mean Corpuscular Hemoglobin 31.5 pg (27.0-31.2); Mean Corpuscular Volume 98.3 fl (81-99); Nucleated Red Blood Cells % 0 %; Platelet Count 223 K/mm3 (142-424); Red Blood Count 4.06 M/mm3 (4.20-5.40); Red Cell Distribution Width-SD 48.2 fL; White Blood Count 6.0 K/mm3 (4.8-10.8)
[2025-03-06 13:00] LABS: Chloride 107 mmol/L (98-107); Potassium 4.3 mmoL/L (3.5-5.1); Sodium 137 mmol/L (136-145)
[2025-03-06 13:03] LABS: Anion Gap 9.3 mEq/L (5-15); Blood Urea Nitrogen 13 mg/dl (7-17); Calcium 9.6 mg/dl (8.4-10.2); Carbon Dioxide 25 mmol/L (22.0-30.0); Creatinine,Serum 0.80 mg/dl (0.52-1.04); Estimated Glomerular Filt Rate 68 ml/min (>60); GFR (African American) 82 ML/MIN (>60); Glucose 88 mg/dl (74-100)
== END 2025-03-06 23:59 | disposition home or self-care (01) ==
LOC: LAB.DROPOF 11:47
PROVIDERS: PCP Nurse Practitioner Family; Visit Provider Nurse Practitioner Family
DX: I10 Essential (primary) hypertension (principal); I42.1 Obstructive hypertrophic cardiomyopathy
CPT/HCPCS: 80048; 85025

== ENCOUNTER 2025-06-10 16:27 | Outpatient (CLI) | payer MEDICARE, SELFPAY ==
[2025-06-10 17:51] LABS: Hematocrit 39.7 % (37.0-47.0); Hemoglobin 11.6 g/dL (12.2-16.2); Immature Granulocytes % 0.3 %; Mean Corpuscular HGB Conc 29.2 g/dL (31.8-35.4); Mean Corpuscular Hemoglobin 29.1 pg (27.0-31.2); Mean Corpuscular Volume 99.7 fl (81-99); Nucleated Red Blood Cells % 0 %; Platelet Count 190 K/mm3 (142-424); Red Blood Count 3.98 M/mm3 (4.20-5.40); Red Cell Distribution Width-SD 64.4 fL; White Blood Count 6.6 K/mm3 (4.8-10.8)
[2025-06-10 18:07] LABS: Anion Gap 8.0 mEq/L (5-15); Blood Urea Nitrogen 33 mg/dl (7-17); Calcium 8.7 mg/dl (8.4-10.2); Carbon Dioxide 34 mmol/L (22.0-30.0); Chloride 118 mmol/L (98-107); Creatinine,Serum 1.20 mg/dl (0.52-1.04); Estimated Glomerular Filt Rate 42 ml/min (>60); GFR (African American) 51 ML/MIN (>60); Glucose 97 mg/dl (74-100)
[2025-06-10 18:34] LABS: Potassium 3.0 mmoL/L (3.5-5.1); Sodium 157 mmol/L (136-145)
== END 2025-06-10 23:59 | disposition home or self-care (01) ==
LOC: LAB.DROPOF 16:28
PROVIDERS: PCP Nurse Practitioner Family; Visit Provider Nurse Practitioner Family
DX: J44.9 Chronic obstructive pulmonary disease, unspecified (principal)
CPT/HCPCS: 80048; 85025

== ENCOUNTER 2025-06-12 18:08 | Outpatient (CLI) | payer MEDICARE, SELFPAY ==
[2025-06-12 18:44] LABS: Anion Gap 8.1 mEq/L (5-15); Blood Urea Nitrogen 23 mg/dl (7-17); Calcium 8.7 mg/dl (8.4-10.2); Carbon Dioxide 32 mmol/L (22.0-30.0); Chloride 123 mmol/L (98-107); Creatinine,Serum 0.90 mg/dl (0.52-1.04); Estimated Glomerular Filt Rate 59 ml/min (>60); GFR (African American) 71 ML/MIN (>60); Glucose 83 mg/dl (74-100); Potassium 3.1 mmoL/L (3.5-5.1)
[2025-06-12 18:58] LABS: Sodium 160 mmol/L (136-145)
== END 2025-06-12 23:59 | disposition home or self-care (01) ==
PROVIDERS: PCP Nurse Practitioner Family; Visit Provider Nurse Practitioner Family
DX: J06.9 Acute upper respiratory infection, unspecified (principal); I10 Essential (primary) hypertension; R79.9 Abnormal finding of blood chemistry, unspecified
CPT/HCPCS: 80048